=== PATIENT | female | born 1990 | race Caucasian/White ===

== ENCOUNTER 2019-10-23 01:21 | Day surgery (SDC) | payer OTHER, SELFPAY ==
[2019-10-14 10:59] VITALS: BMI 33.3
--- NOTE | 2019-10-14 11:51 | PM.IMHP ---
H&P: HPI History of Present Illness Chief complaint: Pelvic Pain Narrative: Ting Fitzpatrick is a 29 year old female who is admitted for diagnostic laparoscopy. She has had recurrent pain and discomfort and dyspareunia. She recently had her IUD removed and that did not relieve her pain. She has negative STD testing ultrasound was relatively unremarkable risks and benefits were reviewed including but not exclusive of , aspiration pneumonia, bleeding, transfusion, perforation injury of bowel, bladder, ureters, or other internal organs with need for open laparotomy. She voiced good understanding and all questions answered she asked to proceed Review of Systems Review of Systems: All systems reviewed & are unremarkable except as noted in HPI and below PMFSH Family History Family History Other Family history of malignant neoplasm Social History Social History Smoking status: Never smoker Alcohol intake: current Meds Home Medications and Allergies Home Medications Medication Instructions Recorded Confirmed Type duloxetine 60 mg PO DAILY 10/14/19 10/14/19 History Allergies Allergy/AdvReac Type Severity Reaction Status Date / Time No Known Allergies Allergy Unverified 10/26/18 09:44 Exam Const: General: no acute distress Eyes: General: appearance normal, both eyes and all related structures Neck: Neck: supple and no JVD Thyroid: thyroid normal Resp: Effort & Inspection: normal respiratory effort Auscultation: clear to auscultation bilaterally Cardio: Rate: regular rate Rhythm: regular rhythm GI: Inspection: non-distended GI Palp: Yes Soft to palpation, No Tenderness to palpation present (GI) and No Guarding due to palpation present (GI) Auscultation: normal bowel sounds : General: Yes bladder normal to palpation External Female Exam: normal external appearance Speculum Exam - Vagina: normal vaginal discharge and No vaginal bleeding Speculum Exam - Cervix: nontender Bimanual exam- vagina & uterus: bladder normal to palpation and No Cervical tenderness present OB/external & speculum: No vaginal bleeding Skin: General skin exam: no rashes or lesions noted Extrem: General: normal to inspection and no edema Psych: Mental Status: mental status grossly normal Affect: normal affect Assessment and Plan Additional Plan impression: Pelvic pain Plan: Diagnostic laparoscopy
--- NOTE | 2019-10-21 14:34 | P.HP_ITS ---
H&P: HPI History of Present Illness Chief complaint: Pelvic Pain Narrative: Ting Fitzpatrick is a 29 year old female 2 para 2 who is admitted for diagnostic laparoscopy. She complains of pain discomfort and dyspareunia. She recently had her IUD UD removed. She had negative STD testing. Ultrasound was relatively unremarkable showing a slightly in a modular S uterus showing a previous scar and no free fluid. In light of her continued pain she is offered laparoscopy. Risks and benefits rev iewed including but not exclusive of , aspiration pneumonia, bleeding, transfusion, perforation injury to bowel, bladder, ureters, or other internal organs with need for open laparotomy. She voiced good understanding. She had all questions answered. And asked to proceed Review of Systems Review of Systems: All systems reviewed & are unremarkable except as noted in HPI and below [facility] Family History Family History Other Family history of malignant neoplasm Social History Social History Smoking status: Never smoker Alcohol intake: current Meds Home Medications and Allergies Home Medications Medication Instructions Recorded Confirmed Type duloxetine 60 mg PO DAILY 10/14/19 10/14/19 History Allergies Allergy/AdvReac Type Severity Reaction Status Date / Time No Known Allergies Allergy Unverified 10/21/19 09:00 Exam Const: General: no acute distress Eyes: General: appearance normal, both eyes and all related structures Neck: Neck: supple and no JVD Thyroid: thyroid normal Resp: Effort & Inspection: normal respiratory effort Auscultation: clear to auscultation bilaterally Cardio: Rate: regular rate Rhythm: regular rhythm GI: Inspection: normal to inspection GI Palp: Yes No hepatosplenomegaly present : External Female Exam: normal external appearance Speculum Exam - Vagina: normal appearance of the vagina Speculum Exam - Cervix: normal appearance of the cervix, Patulous cervix present and Cervical tenderness present Bimanual exam- vagina & uterus: uterine mobility normal and non- tender (tender) Bimanual Exam- Adnexa, other: tender (bilaterally) Skin: General skin exam: no rashes or lesions noted Extrem: General: normal to inspection and no edema Psych: Mental Status: mental status grossly normal Affect: normal affect Assessment and Plan Additional Plan or do impression: Pelvic pain and dyspareunia Plan: Laparoscopy
[2019-10-23] VITALS (10 sets, daily range): BP systolic 98–117; BP diastolic 51–77; PULSE 92–132; RESP 14–18; TEMP 36.1–36.4; O2SAT 90–100
--- NOTE | 2019-10-23 06:50 | WPDHPUPDATE1 ---
History and Physical Update Update Date/Time: 10/23/19 06:50 History and Physical has been reviewed, including an updated exam of the patient. There are NO changes in the patient's condition. Risks, benefits, and alternatives have been discussed and questions answered. Patient agrees to proceed with procedure.
[2019-10-23] MEDS: LACTATED RINGERS 1,000 ML 30 ML IV CONT ×2 (07:20→09:27)
--- NOTE | 2019-10-23 08:13 | P.PNAN_ITS ---
Anes - Initial Pre Proc Eval Procedure: Operation Date: 10/23/19 08:30 Proposed Procedures p Diagnostic Laparoscopy - Mitchel Montano MD Date/Time: 10/23/19 08:13 Surgeon: Mitchel Montano MD Pre Op Diagnosis: Pelvic Pain Patient Data Age: 29 Gender: F Height: 5 ft 5 in Weight: 90.72 kg Allergies Allergy/AdvReac Type Severity Reaction Status Date / Time No Known Allergies Allergy Unverified 10/23/19 08:12 Home Medications Medication Instructions Recorded Confirmed Type duloxetine 60 mg PO DAILY 10/14/19 10/14/19 History hydrocodone-acetaminophen [[place]] 1 tablet PO Q4H PRN #30 tablet 10/23/19 Rx Patient hx anesthesia problems: none Family hx anesthesia problems: none PMFSH Past Medical History Medical History (Updated 10/23/19 @ 08:10 by Fermín Cedillo MD) Anxiety Family History Family History Other Family history of malignant neoplasm Social History Social History Smoking status: Never smoker Alcohol intake: current Anes - Eval Final PreProcedure Day of Procedure 10/23/19 08:13 Patient weight: obese Heart: regular rate and rhythm Lungs: clear to auscultation Airway: Mallampati scale class II Neurological: alert and oriented Last oral intake: >/= 8 hours ASA classification: II Emergent: no Anesthetic plan: proceed Anesthesia type and monitoring: general ETT and standard monitoring Informed Consent: The patient's anesthetic plan and its attendant risks and benefits were discussed with the patient/family/POA. Questions were solicited and answers provided to the satisfaction of the patient/family/POA.
--- NOTE | 2019-10-23 09:08 | P.OP_ITS ---
Procedure Note - Detailed Date of procedure: 10/23/19 Pre-op diagnosis: Pelvic Pain Surgeon: Mitchel Montano MD Postop diagnosis: Pelvic pain, mild endometriosis Procedure: Laparoscopy with destruction of endometriosis Anesthesia: General tracheal Blood loss: 5cc Findings: Normal-appearing uterus and right ovary and tube. Left fallopian tube was elongated with the left ovary sitting well above the pelvis. Small area of endometriosis was seen on the right cold is sac. Normal appearing appendix was seen. Normal-appearing liver. Complications: The none. It should be noted that upon entrance of the Veress needle the patient reacted with a fascicular reaction lasting approximately 10- 15 seconds. This was not seen the remainder of the procedure. Description of procedure: The patient was prepped and draped in the normal sterile fashion and placed in the dorsal lithotomy position. Under excellent general endotracheal anesthesia weighted speculum was placed in the posterior fornix of vagina. The anterior lip of cervix was grasped with a single-tooth tenaculum. The Oden's cannula was inserted and attached to the single-tooth to be used later for uterine manipulation. Gloves were changed. An infra Koul incision made. The Veress needle passed into the abdomen and the abdomen filled with CO2 gas [id number]. The 5mm trocar was advanced in the abdomen under direct visualization assuring no injury. Patient placed in Trendelenburg and a suprapubic incision made under direct visualization assuring no injury. The above findings were seen the above findings were seen. The small area of endometriosis on the right uterus sacral ligament was cauterized at 35 w per 2nd. No other abnormalities were seen. Photo documentation was undertaken. The lower site removed. The gas removed from the abdomen. The incisions closed with 4 O Monocryl and glue. All sponge, needle, instrument c ounts were correct. There were no immediate complications
[2019-10-23] MEDS: ONDANSETRON INJ 4 MG/2 ML VIAL IV PUSH (09:44)
[2019-10-23] MEDS: HYDROMORPHONE HCL 1 MG/ML INJ 0.5 MG IV PUSH (10:11)
[2019-10-23] MEDS: SCOPOLAMINE 1.5 MG PATCH TRANSDERM (10:54)
== END 2019-10-23 11:35 | disposition home or self-care (01) ==
PROVIDERS: Visit Provider Obstetrics & Gynecology
PROC: (CPT 49320; principal; 2019-10-23 08:30)
DX: N80.3 Endometriosis of pelvic peritoneum (principal); R10.2 Pelvic and perineal pain; F41.9 Anxiety disorder, unspecified; E66.9 Obesity, unspecified; Z68.37 Body mass index [BMI] 37.0-37.9, adult
CPT/HCPCS: 58662; 36415; 86850; 86900; 86901; A9270; J0330; J1100; J1170; J1200; J2250; J2405; J2704; J3010; J7030; J7120

== ENCOUNTER 2020-04-14 14:42 | Emergency (ER) | payer OTHER, SELFPAY ==
[2020-04-14 15:03] VITALS: BP 140/88; PULSE 96; RESP 14; TEMP 37; O2SAT 98
[2020-04-14 15:07] LABS: Add Urine Microscopic? YES; Appearance Urine Cloudy (Clear); Bacteria Urine Trace /hpf; Bilirubin Urine Negative (Negative); Blood Urine Negative (Negative); Color Urine Yellow (Yellow); Glucose Urine UA Negative (Negative); Ketones Urine Negative (Negative); Leukocyte Esterase Ur Trace LEU/UL (Negative); Mucus Urine Rare /lpf; Nitrate Urine Positive (Negative); Protein Urine 1+ mg/dL (Negative); Specific Grav Ur 1.023 (1.001-1.035); Squamous Epithelial Cell Urine Many /hpf (Few); Urobilinogen Urine Negative mg/dL (<2.0)
[2020-04-14] MEDS: SODIUM CHLORIDE 0.9% IV 1,000 ML 999 ML IV CONT ×2 (15:14→16:35)
[2020-04-14 15:20] LABS: Basophils Percent Auto 0.2 % (0.2-1.2); Eosinophils Percent Auto 0.2 % (0-4.4); Hematocrit 39.4 % (37.0-47.0); Hemoglobin 13.2 g/dL (12.0-15.0); Immature Granulocyte Absolute 0.03 K/mm3 (0.00-0.031); Immature Granulocyte Percent A 0.3 % (0-0.5); Lymphocytes Absolute Auto 3.02 K/mm3 (0.9-3.2); Lymphocytes Percent Auto 26.7 % (18.3-44.2); Mean Corpuscular HGB Conc 33.5 g/dl (32-36); Mean Corpuscular Hemoglobin 29.2 pg (26-34); Mean Corpuscular Volume 87.2 fl (80-100); Mean Platelet Volume 9.8 fl (7.4-10.4); Monocytes Absolute Auto 0.6 K/mm3 (0.1-0.6); Monocytes Percent Auto 5.7 % (2.6-8.5); Neutrophils Absolute Auto 7.6 K/mm3 (1.3-6.7); Neutrophils Percent Auto 66.9 % (45.5-73.1); Platelet Count Result 309 k/mm3 (150-375); Red Blood Count 4.52 M/mm3 (4.2-5.4); Red Cell Distribution Width 13.3 % (11.5-14.5); White Blood Count 11.3 K/mm3 (4.5-10.0)
[2020-04-14 15:34] LABS: Alanine Aminotransferase 11 U/L (4-35); Albumin Level 4.6 g/dL (3.5-5.1); Alkaline Phosphatase 92 U/L (38-126); Anion Gap 14.8 mmol/L (7-16); Aspartate Amino Transferase 19 U/L (14-36); Bilirubin,Total 0.5 mg/dL (0.2-1.3); Blood Urea Nitrogen 8 mg/dL (7-17); Calcium 9.6 mg/dL (8.4-10.2); Carbon Dioxide 22 mmol/L (22-30); Chloride 105 mmol/L (98-107); Estimated CRCL calculation 80 ml/min; Estimated Glomerular Filt Rate > 60; Glucose 95 mg/dL (65-105); Potassium 3.8 mmol/L (3.4-5.0); Sodium 138 mmol/L (137-145)
--- NOTE | 2020-04-14 15:42 | ED.ABDPAIN ---
HPI - Abdominal Pain General Chief Complaint: Urogenital-Female <Ebenezer Zhang PA-C - Last Filed: 04/14/20 17:15> Stated Complaint: flank pain <Ebenezer Zhang PA-C - Last Filed: 04/14/20 17:15> Time Seen by Provider: 04/14/20 14:45 <Ebenezer hZang PA-C - Last Filed: 04/14/20 17:15> Source: patient and family <Ebenezer Zhang PA-C - Last Filed: 04/14/20 17:15> Mode of arrival: ambulatory <Ebenezer Zhang PA-C - Last Filed: 04/14/20 17:15> Limitations: no limitations <Ebenezer Zhang PA-C - Last Filed: 04/14/20 17:15> History of Present Illness HPI narrative: Patient is a 30-year-old female who presents to emergency department for evaluation of upper respiratory symptoms that began in the last day noting that she has had a history of urinary tract infection notes some discomfort in the lower abdomen and lower back patient resting comfortably in the room upon arrival took some Tylenol for her symptoms with some improvement denies vomiting diarrhea or URI symptoms <Ebenezer Zhang PA-C - Last Filed: 04/14/20 17:15> Related Data Home Medications: Home Medications Medication Instructions Recorded Confirmed duloxetine 60 mg PO DAILY 10/14/19 10/23/19 <Ebenezer Zhang PA-C - Last Filed: 04/14/20 17:15> Allergies/Adverse Reactions: Allergies Allergy/AdvReac Type Severity Reaction Status Date / Time No Known Allergies Allergy Verified 04/14/20 15:14 <Ebenezer Zhang PA-C - Last Filed: 04/14/20 17:15> Review of Systems Review of Systems: All systems reviewed & are unremarkable except as noted in HPI and below <Ebenezer Zhang PA-C - Last Filed: 04/14/20 17:15> [facility] Past Medical History Medical History: Medical History Anxiety <LAMIN Patrick Last Filed: 04/14/20 17:15> Social History Social History: Social History Smoking status: Never smoker Alcohol intake: current <Ebenezer Zhang PA-C - Last Filed: 04/14/20 17:15> Exam Narrative: Exam Narrative: GENERAL: Well-appearing, well-nourished, and in no acute distress. HEAD: Normocephalic, atraumatic. EYES: PERRLA and EOMI. ENT: Nares clear, no rhinorrhea or epistaxis. Mucous membranes moist. CHEST: Clear to auscultation. No respiratory distress. No wheezes rales or rhonchi HEART: Regular rate and rhythm. No murmur heard. Normal peripheral pulses. ABDOMEN: Soft, nontender, nondistended EXTREMITIES: Normal range of motion. No edema. SKIN: Warm, dry, no rash. NEURO: No focal deficits. Alert and oriented x3. PSYCH: Normal mood and affect. <Ebenezer Zhang PA-C - Last Filed: 04/14/20 17:15> Course Course Emergency Course: Patient in the room in no distress afebrile nontoxic-appearing hydrated given antibiotics in the emergency department felt appropriate for outpatient reevaluation. Patient agreeing with plan and will follow-up as directed no high risk changes in the blood work. Patient was offered CAT scan but notes she prefers to go home and will return if symptoms worsen. <Ebenezer Zhang PA-C - Last Filed: 04/14/20 17:15> Vital Signs Vital signs: Vital Signs Temperature 98.6 F 04/14/20 15:03 Pulse Rate 96 04/14/20 15:03 Respiratory Rate 14 04/14/20 15:03 Blood Pressure 140/88 04/14/20 15:03 Pulse Oximetry 98 04/14/20 15:03 Temperature 98.6 F 04/14/20 15:03 Pulse Rate 70 04/14/20 18:11 Respiratory Rate 12 04/14/20 18:11 Blood Pressure 124/78 04/14/20 18:11 Pulse Oximetry 99 04/14/20 18:11 <Ebenezer Zhang PA-C - Last Filed: 04/14/20 17:15> Vital Signs Temperature 98.6 F 04/14/20 15:03 Pulse Rate 96 04/14/20 15:03 Respiratory Rate 14 04/14/20 15:03 Blood Pressure 140/88 07/23/20 15:03 Pulse Oximetry 98 04/14/20 15:03 Temperature 98.6 F 04/14/20
[2020-04-14] MEDS: KETOROLAC 30 MG/ML VIAL (*BKC) IV PUSH (16:35)
[2020-04-14] MEDS: ONDANSETRON INJ 4 MG/2 ML VIAL IV PUSH (16:35)
[2020-04-14 16:36] VITALS: BP 125/96; PULSE 94; RESP 14; O2SAT 98
[2020-04-14 18:11] VITALS: BP 124/78; PULSE 70; RESP 12; O2SAT 99
== END 2020-04-14 17:39 | disposition home or self-care (01) ==
PROVIDERS: Emergency Medicine Emergency Medical Services; Emergency Provider Emergency Medicine
DX: N39.0 Urinary tract infection, site not specified (principal)
CPT/HCPCS: 36415; 80053; 81001; 81025; 85025; 96361; 96365; 96375; 99284; J0131; J0696; J1885; J2405; J7030

== ENCOUNTER 2021-02-06 16:33 | Outpatient (CLI) | payer OTHER, SELFPAY ==
--- NOTE | ~2021-02-06 | XR_ITS ---
XR hand RT min 3V DATE: 02/06/2021 16:55 INDICATION: Right hand contusion TECHNIQUE: 3 views COMPARISON: None FINDINGS: There is a an intra-articular fracture of the base of the fifth metacarpal bone, with minim al dorsal displacement. No fracture or dislocation is evident otherwise. IMPRESSION: Intra-articular fracture of base of fifth metacarpal bone Reviewed, dictated and finalized at location A.
== END 2021-02-06 16:34 ==
PROVIDERS: PCP Physician Assistant; Visit Provider Physician Assistant
DX: S60.221A Contusion of right hand, initial encounter (principal); S62.316A Displaced fracture of base of fifth metacarpal bone, right hand, initial encounter for closed fracture
CPT/HCPCS: 73130

== ENCOUNTER → 2021-02-21 02:46 | Outpatient (CLI) | payer OTHER, SELFPAY ==
[2021-02-21 18:14] LABS: SARS-CoV-2 RNA PCR Negative
== END ==
PROVIDERS: PCP Physician Assistant; Visit Provider Internal Medicine Gastroenterology
DX: Z01.812 Encounter for preprocedural laboratory examination (principal); Z20.822 Contact with and (suspected) exposure to COVID-19
CPT/HCPCS: C9803; U0003; U0005

== ENCOUNTER 2021-02-24 00:42 | Day surgery (SDC) | payer OTHER, SELFPAY ==
[2021-02-15 15:48] VITALS: BMI 37.0
[2021-02-24 09:46] VITALS: BP 107/62; PULSE 87; RESP 20; TEMP 36.1; O2SAT 99; BMI 37.7
[2021-02-24] MEDS: LACTATED RINGERS 1,000 ML 150 ML IV CONT (10:04)
--- NOTE | 2021-02-24 10:55 | WPDANESEPPF ---
Anes - Initial Pre Proc Eval Procedure: Operation Date: 02/24/21 11:30 Proposed Procedures p Colonoscopy - Jose Price MD Date/Time: 02/24/21 10:55 Surgeon: Jose Price MD Pre Op Diagnosis: melena Patient Data Age: 31 Gender: F Height: 5 ft 5 in Weight: 102.9 kg Last Vital Signs Temp 97.0 F L 02/24/21 09:46 Pulse 87 02/24/21 09:46 Resp 20 02/24/21 09:46 BP 107/62 02/24/21 09:46 Pulse Ox 99 02/24/21 09:46 Allergies Allergy/AdvReac Type Severity Reaction Status Date / Time No Known Allergies Allergy Unverified 02/24/21 09:45 Home Medications Medication Instructions Recorded Confirmed Type duloxetine 60 mg PO DAILY 10/14/19 10/23/19 History hydrocodone-acetaminophen [[place]] 1 tablet PO Q4H PRN #30 tablet 10/23/19 Rx cephalexin [Keflex] 500 mg PO Q12H 10 Days #20 cap 04/14/20 Rx phenazopyridine [Pyridium] 100 mg PO TID PRN #6 tablet 04/14/20 Rx promethazine 25 mg PO Q6H PRN #10 tablet 04/14/20 Rx duloxetine 60 mg PO DAILY 02/15/21 02/15/21 History quetiapine 200 mg PO DAILY 02/15/21 02/15/21 History tapentadol [Nucynta] 100 mg PO Q6H PRN 02/15/21 02/15/21 History Patient hx anesthesia problems: none Family hx anesthesia problems: none [facility] Past Medical History Medical History (Updated 02/24/21 @ 10:54 by Fermín Cedillo MD) Anxiety Depression Family History Family History Other Family history of malignant neoplasm Social History Social History Smoking status: Never smoker Alcohol intake: never Substance use: never Substance use type: does not use Spiritual care concerns: No Anes - Eval Final PreProcedure Day of Procedure 02/24/21 10:55 Patient weight: obese Heart: regular rate and rhythm Lungs: clear to auscultation Airway: Mallampati scale class II Neurological: alert and oriented Last oral intake: >/= 8 hours ASA classification: II Emergent: no Anesthetic plan: proceed Anesthesia type and monitoring: general GIVS and standard monitoring Informed Consent: The patient's anesthetic plan and its attendant risks and benefits were discussed with the patient/family/POA. Questions were solicited and answers provided to the satisfaction of the patient/family/POA.
--- NOTE | 2021-02-24 10:59 | PM.HPGS ---
History of Present Illness History of Present Illness Consent: Risks, benefits, and alternatives have been discussed and questions answered. Patient agrees to proceed with procedure. Chief complaint: melena Narrative: Ting Fitzpatrick is a 31 year old female who has been passing blood in his stools for several months. She has a tendency to have constipation but at times her stools are loose. She is having a great deal of pain with passage of stool. This has been going on for several months also Review of Systems Review of Systems: All systems reviewed & are unremarkable except as noted in HPI and below PMFSH Past Medical History Medical History Anxiety Depression Family History Family History Other Family history of malignant neoplasm Social History Social History Smoking status: Never smoker Alcohol intake: never Substance use: never Substance use type: does not use Spiritual care concerns: No Meds Home Medications and Allergies Home Medications Medication Instructions Recorded Confirmed Type duloxetine 60 mg PO DAILY 10/14/19 10/23/19 History hydrocodone-acetaminophen [[place]] 1 tablet PO Q4H PRN #30 tablet 10/23/19 Rx cephalexin [Keflex] 500 mg PO Q12H 10 Days #20 cap 04/14/20 Rx phenazopyridine [Pyridium] 100 mg PO TID PRN #6 tablet 04/14/20 Rx promethazine 25 mg PO Q6H PRN #10 tablet 04/14/20 Rx duloxetine 60 mg PO DAILY 02/15/21 02/15/21 History quetiapine 200 mg PO DAILY 02/15/21 02/15/21 History tapentadol [Nucynta] 100 mg PO Q6H PRN 02/15/21 02/15/21 History Allergies Allergy/AdvReac Type Severity Reaction Status Date / Time No Known Allergies Allergy Unverified 02/24/21 09:45 Vital Signs Vital Signs - 24 hr 02/24/21 09:46 Temperature 36.1 C L Pulse Rate 87 Respiratory Rate 20 Blood Pressure 107/62 Pulse Oximetry 99 Exam Resp: Auscultation: clear to auscultation bilaterally Cardio: Rate: regular rate Rhythm: regular rhythm GI: GI Palp: Yes Soft to palpation and No Tenderness to palpation present (GI) Assessment and Plan Assessment and plan (1) Blood in stool: Code(s): K92.1 - Melena Status: Acute Assessment and Plan: Colonoscopy with possible biopsy or polypectomy or cautery or injection of substances.
[2021-02-24 11:26] VITALS: BP 145/66; PULSE 91; RESP 18; O2SAT 97
[2021-02-24 11:36] VITALS: BP 110/75; PULSE 72; RESP 18; O2SAT 96
[2021-02-24 11:46] VITALS: BP 109/62; PULSE 69; RESP 20; O2SAT 96
== END 2021-02-24 12:05 | disposition home or self-care (01) ==
PROVIDERS: PCP Physician Assistant; Visit Provider Internal Medicine Gastroenterology
PROC: 0DJD8ZZ Inspection of Lower Intestinal Tract, Via Natural or Artificial Opening Endoscopic (ICD-10-PCS; CPT 45378; principal; 2021-02-24 11:30)
DX: K60.2 Anal fissure, unspecified (principal); F41.8 Other specified anxiety disorders; E66.9 Obesity, unspecified; Z68.37 Body mass index [BMI] 37.0-37.9, adult
CPT/HCPCS: 45378; C9803; J7120; U0003; U0005

== ENCOUNTER → 2021-06-27 02:47 | Outpatient (CLI) | payer OTHER, SELFPAY ==
[2021-06-27 19:14] LABS: SARS-CoV-2 RNA PCR Negative
== END ==
PROVIDERS: PCP Physician Assistant; Visit Provider Obstetrics & Gynecology
DX: Z01.812 Encounter for preprocedural laboratory examination (principal); Z20.822 Contact with and (suspected) exposure to COVID-19
CPT/HCPCS: C9803; U0003; U0005

== ENCOUNTER 2021-06-27 09:02 | Outpatient (CLI) | payer OTHER, SELFPAY ==
[2021-06-27 09:50] LABS: Basophils Percent Auto 0.5 % (0.2-1.2); Eosinophils Absolute Auto 0.2 K/mm3 (0-0.3); Hematocrit 37.5 % (37.0-47.0); Hemoglobin 12.2 g/dL (12.0-15.0); Immature Granulocyte Absolute 0.03 K/mm3 (0.00-0.031); Immature Granulocyte Percent A 0.3 % (0-0.5); Lymphocytes Absolute Auto 3.08 K/mm3 (0.9-3.2); Lymphocytes Percent Auto 34.8 % (18.3-44.2); Mean Corpuscular HGB Conc 32.5 g/dl (32-36); Mean Corpuscular Hemoglobin 27.8 pg (26-34); Mean Corpuscular Volume 85.4 fl (80-100); Mean Platelet Volume 9.5 fl (7.4-10.4); Monocytes Absolute Auto 0.7 K/mm3 (0.1-0.6); Monocytes Percent Auto 8.2 % (2.6-8.5); Neutrophils Absolute Auto 4.8 K/mm3 (1.3-6.7); Neutrophils Percent Auto 54.2 % (45.5-73.1); Platelet Count Result 253 k/mm3 (150-375); Red Blood Count 4.39 M/mm3 (4.2-5.4); Red Cell Distribution Width 13.8 % (11.5-14.5); White Blood Count 8.9 K/mm3 (4.5-10.0)
== END 2021-06-27 09:03 | disposition home or self-care (01) ==
LOC: ANHSURGERY 09:06
PROVIDERS: PCP Physician Assistant; Visit Provider Obstetrics & Gynecology
DX: Z01.812 Encounter for preprocedural laboratory examination (principal); R10.2 Pelvic and perineal pain
CPT/HCPCS: 36415; 85025; 86850; 86900; 86901

== ENCOUNTER 2021-06-30 00:39 | Day surgery (SDC) | payer OTHER, SELFPAY ==
[2021-06-22 10:06] VITALS: BMI 37.4
--- NOTE | 2021-06-27 16:16 | PM.IMHP ---
H&P: HPI History of Present Illness Date/Time: 06/27/21 16:16 this is a 31-year-old 2 para 2 admitted for robotic total vaginal rectally and bilateral salpingectomy secondary to chronic pelvic pain, enlarged uterus and dyspareunia. The patient has had several surgeries for pelvic pain before in the past. Hormonal manipulation has been on helpful. Risks and benefits reviewed including but not exclusive of , aspiration pneumonia, bleeding, transfusion, perforation injury to bowel, bladder, ureters, or other internal organs with need for laparotomy. She received the [employer] handout entitled hysterectomy as well as the [place] handout. She had all questions answered and asked to proceed Chief Complaint: pelvic pain and dyspareunia Review of Systems Review of Systems: All systems reviewed & are unremarkable except as noted in HPI and below PMFSH Past Medical History Medical History Anxiety Depression Family History Family History Other Family history of malignant neoplasm Social History Social History Smoking status: Never smoker Alcohol intake: never Substance use: never Substance use type: does not use Spiritual care concerns: No Meds Home Medications and Allergies Home Medications Medication Instructions Recorded Confirmed Type duloxetine 60 mg PO HS 02/15/21 06/22/21 History quetiapine 200 mg PO HS 02/15/21 06/22/21 History Allergies Allergy/AdvReac Type Severity Reaction Status Date / Time No Known Allergies Allergy Unverified 06/22/21 10:04 Exam Const: General: no acute distress Eyes: General: appearance normal, both eyes and all related structures Neck: Neck: supple and no JVD Thyroid: thyroid normal Resp: Effort & Inspection: normal respiratory effort Auscultation: clear to auscultation bilaterally Cardio: Rate: regular rate Rhythm: regular rhythm GI: Inspection: non-distended GI Palp: Yes Soft to palpation, No Tenderness to palpation present (GI) and No Guarding due to palpation present (GI) Auscultation: normal bowel sounds : General: Yes bladder normal to palpation External Female Exam: normal external appearance Speculum Exam - Vagina: normal appearance of the vagina Bimanual exam- vagina & uterus: enlarged and Uterine tenderness Bimanual Exam- Adnexa, other: normal adnexae Skin: General skin exam: no rashes or lesions noted Extrem: General: normal to inspection and no edema Psych: Mental Status: mental status grossly normal Affect: normal affect Assessment and Plan Additional Plan impression: Enlarged uterus with pelvic pain and dyspareunia refractory to medical therapy Plan: Robotic total vaginal hysterectomy and bilateral salpingectomies
[2021-06-30] VITALS (18 sets, daily range): BP systolic 99–132; BP diastolic 53–94; PULSE 75–109; RESP 12–22; TEMP 36.4–37.2; O2SAT 94–100
--- NOTE | 2021-06-30 06:00 | WPDHPUPDATE1 ---
History and Physical Update Update Date/Time: 06/30/21 06:00 History and Physical has been reviewed, including an updated exam of the patient. There are NO changes in the patient's condition. Risks, benefits, and alternatives have been discussed and questions answered. Patient agrees to proceed with procedure.
[2021-06-30] MEDS: ACETAMINOPHEN 500 MG TABLET 1000 MG PO (06:45)
--- NOTE | 2021-06-30 06:57 | WPDANESEPPF ---
Anes - Initial Pre Proc Eval Procedure: Operation Date: 06/30/21 08:00 Proposed Procedures p Robotic Assisted Total Vaginal Hysterectomy Bilateral Salpingectomy - Mitchel Montano MD Date/Time: 06/30/21 06:57 Surgeon: Mitchel Montano MD Pre Op Diagnosis: Pelvic Pain, Enlarged Uterus Patient Data Age: 31 Gender: F Height: 1.65 m Weight: 102 kg Allergies Allergy/AdvReac Type Severity Reaction Status Date / Time No Known Allergies Allergy Unverified 06/30/21 06:34 Home Medications Medication Instructions Recorded Confirmed Type duloxetine 60 mg PO HS 02/15/21 06/30/21 History quetiapine 200 mg PO HS 02/15/21 06/30/21 History hydrocodone-acetaminophen 1 tablet PO Q4H PRN #30 tablet 06/30/21 Rx Patient hx anesthesia problems: none Family hx anesthesia problems: none Results Review: All pre-operative results and documents have been reviewed as part of the pre-operative evaluation. PMFSH Past Medical History Medical History (Updated 06/30/21 @ 06:57 by Mitchel Turner MD) Anxiety Depression Obesity Surgical History Surgical History (Updated 06/30/21 @ 06:57 by Mitchel Turner MD) H/O arthroscopic knee surgery History of section Family History Family History Other Family history of malignant neoplasm Social History Social History Smoking status: Never smoker Alcohol intake: never Substance use: never Substance use type: does not use Living arrangements: with family Spiritual care concerns: No Anes - Eval Final PreProcedure Day of Procedure 06/30/21 06:57 Patient weight: obese Heart: regular rate and rhythm Lungs: clear to auscultation Airway: Mallampati scale Neurological: alert and oriented Last oral intake: >/= 8 hours ASA classification: II Emergent: no Anesthetic plan: proceed Anesthesia type and monitoring: general ETT and standard monitoring Results Review: All pre-operative results and documents have been reviewed as part of the pre-operative evaluation. Informed Consent: The patient's anesthetic plan and its attendant risks and benefits were discussed with the patient/family/POA. Questions were solicited and answers provided to the satisfaction of the patient/family/POA.
[2021-06-30] MEDS: KETOROLAC 15 MG/ML VIAL (*BKC) IV PUSH (07:00)
[2021-06-30] MEDS: LACTATED RINGERS 1,000 ML 30 ML IV CONT ×2 (07:00→08:25)
[2021-06-30] MEDS: ceFAZolin 2 GM/D5W 50 ML 2 GM/50 ML BAG IVPB (07:21)
--- NOTE | 2021-06-30 08:17 | P.OP_ITS ---
Procedure Note - Detailed Date of Procedure 06/30/21 Pre-op Diagnosis Pelvic Pain, Enlarged Uterus Post-op Diagnosis same Procedure Performed Robotic total vaginal hysterectomy and right salpingectomy Surgeon Mitchel Montano MD Anesthesia general Indications This is a 31-year-old female with bleeding pain and enlarged uterus Findings The left ovary and tube were absent. The uterus was enlarged. Right ovary and tube appeared within normal limits Description of Procedure Patient was prepped draped in the normal sterile fashion placed in the dorsal lithotomy position. Under excellent general trach anesthesia weighted speculum placed in posterior fornix of vagina. The anterior lip of the cervix grasped with single-tooth tenaculum and the uterus sounded to 10cm. Serial dilatation with fragmented dilators performed followed by passage of the 8. WILMA and the 3. Cold cup. A 16 Italian catheter was placed in the bladder. They were in the instruments were removed and the gloves were changed. A supraumbilical incision made the Veress needle passed in the abdomen. The abdomen filled with CO2 gas [id number]. The 5mm trocar advanced in the abdomen under direct visualization assuring no injury. The patient placed in Trendelenburg and right left lateral quadrant incision made. The 8mm trocars advanced under direct visualization assuring no injury. A right upper quadrant incision made the 8mm trocar advanced under direct visualization assuring no injury. The robot was docked. Attention was turned to the console. 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 The right ovary and tube appeared within normal limits. The uterus was enlarged and swollen. The right round ligament was grasped, burned, cut. And a bladder flap formed by anteriorly dissecting the peritoneum and reflecting the bladder caudally away from the uterus to the opposite round ligament. Right fallopian tube was then sharply dissected using cautery and monopolar cautery and left attached to the uterus. The right utero-ovarian ligament was skeletonized to conserve the right ovary. This was clamped, burned, cut. And brought to the level of previously cut round ligament. The cardinal broad ligaments on the right were serially skeletonized. These were clamped, burned, cut. And brought down the lateral edge until the uterine vessels could be seen on the right. These were individually clamped, burned, cut. In like fashion the cardinal and broad ligaments on the left were skeletonized. These were clamped, burned, cut and brought down the lateral edge of the uterus until the uterine vessels could be seen on the left. These were individually clamped, burned, cut and blanching of the uterus was noted. A colpotomy incision was made. The uterus cervix and right fallopian tube removed through the vagina. Blood loss estimated 25cc. The vagina closed with continuous running 0V lock from lateral edge to lateral edge and back to the midline. Irrigation undertaken until clear and hemostasis assured. The robot was undocked. The gas removed from the abdomen. The trocars removed and the incisions closed with 4 Monocryl and glue. The patient was awakened and went to recovery in satisfactory condition. All sponge, needle, instrument counts were correct. There were no immediate complications Estimated Blood Loss 25 Drains No Packing No Pathology yes Complications No immediate complications Condition stable Disposition PACU
[2021-06-30] MEDS: fentaNYL CITRATE INJ (*CRX) 100 MCG/2 ML VIAL 25 MCG IV PUSH ×8 (08:41→09:13)
--- NOTE | 2021-06-30 09:16 | SUR.PHASEI ---
late entry. late pain biomedical manager due to no med orders in when pt arrived. md mendoza and romina called for iniciation and additional pain meds.
[2021-06-30] MEDS: HYDROmorphone HCL INJ (*CRX) 1 MG/ML SYR IV PUSH ×6 (09:18→10:31)
[2021-06-30] MEDS: DEXTROSE 5%/LACTATED RINGERS 1,000 ML 125 ML IV CONT (11:53)
[2021-06-30] MEDS: KETOROLAC 30 MG/ML VIAL (*BKC) IV PUSH (11:53)
--- NOTE | 2021-06-30 11:56 | SUR.PHASEI ---
late entry 103 this nurse gave the last dose of Dilaudid pain med per nov. this nurse called MD crum to inform him about pt requiring so much pain medication and that her vss are stable and abd was soft but tender and no vaginal bleeding. no further orders were given.
--- NOTE | 2021-06-30 13:18 | ADMGEN ---
1130-This patient, Ting Fitzpatrick, was admitted to OB 2nd Floor Room 279-00. Patient/family oriented to hospital policies and general routines including ID bracelet, bed and alarms, visiting hours, pain management, procedures, bathroom and other care routines, personal items, smoking policy, room service/diet, and visiting hours. Information on how to activate the Rapid Response Team has been discussed. Patient/Family are encouraged to report perceived risks to care and to ask questions if they do not understand what they are told or what they should do.
[2021-06-30] MEDS: HYDROcodone/acetaminophen (*CRX) 10-325 MG TABLET 1 TAB PO ×3 (13:50→20:03)
[2021-06-30] MEDS: DOCUSATE SODIUM 100 MG CAPSULE PO (17:00)
[2021-06-30] MEDS: IBUPROFEN 600 MG TABLET PO (20:04)
[2021-06-30] MEDS: DULoxetine HCL 60 MG CAPSULE.DR PO (22:46)
[2021-06-30] MEDS: QUEtiapine FUMARATE 100 MG TABLET 200 MG PO (22:46)
[2021-06-30] MEDS: HYDROcodone/acetaminophen (*CRX) 5-325 MG TABLET 1 TAB PO (23:02)
[2021-06-30] MEDS: CALCIUM CARBONATE (TUMS) 500 MG (200 MG ELEMENTAL) PO (23:06)
[2021-07-01] VITALS: BP 104/70; PULSE 100; RESP 16; TEMP 36.9; O2SAT 100
[2021-07-01] MEDS: HYDROcodone/acetaminophen (*CRX) 5-325 MG TABLET 1 TAB PO ×2 (03:35→09:05)
[2021-07-01] MEDS: IBUPROFEN 600 MG TABLET PO ×2 (03:35→09:05)
[2021-07-01 04:36] VITALS: BP 113/66; PULSE 102; RESP 18; TEMP 36.4; O2SAT 98
[2021-07-01 04:44] LABS: Basophils Percent Auto 0.3 % (0.2-1.2); Eosinophils Percent Auto 0.1 % (0-4.4); Hematocrit 37.4 % (37.0-47.0); Hemoglobin 12.2 g/dL (12.0-15.0); Immature Granulocyte Absolute 0.04 K/mm3 (0.00-0.031); Immature Granulocyte Percent A 0.3 % (0-0.5); Lymphocytes Absolute Auto 2.75 K/mm3 (0.9-3.2); Lymphocytes Percent Auto 18.4 % (18.3-44.2); Mean Corpuscular HGB Conc 32.6 g/dl (32-36); Mean Corpuscular Hemoglobin 27.5 pg (26-34); Mean Corpuscular Volume 84.4 fl (80-100); Mean Platelet Volume 9.8 fl (7.4-10.4); Monocytes Absolute Auto 0.8 K/mm3 (0.1-0.6); Monocytes Percent Auto 5.3 % (2.6-8.5); Neutrophils Absolute Auto 11.3 K/mm3 (1.3-6.7); Neutrophils Percent Auto 75.6 % (45.5-73.1); Platelet Count Result 295 k/mm3 (150-375); Red Blood Count 4.43 M/mm3 (4.2-5.4); Red Cell Distribution Width 13.8 % (11.5-14.5); White Blood Count 14.9 K/mm3 (4.5-10.0)
[2021-07-01 08:00] VITALS: BP 95/49; PULSE 96; RESP 14; TEMP 36.9; O2SAT 95
--- NOTE | 2021-07-01 09:00 | PM.DS ---
DS: Admitting Diagnosis Discharge Date 07/01/21 Admitting Diagnosis chronic pelvic pain enlarged uterus dyspareunia DS: Summary Hospital Course Hospital Course: Taryn Sykes was admitted after robotic assisted total laparoscopic hysterectomy and bilateral salpingo-oophorectomy for abnormal uterine bleeding. The above procedure was performed with no complications. She is doing well post op. She states her pain is well controlled with PO medications. She reports minimal bleeding. She is ambulating up to the chair. Her gibson catheter was removed. She is tolerating PO without N/V. She reports passing flatus. Status at Discharge Overall status at discharge: patient is progressing back to baseline Time Spent with Patient Time attestation: Total time spent providing and/or coordinating discharge services: Time spent: Less than 30 minutes Exam Const: General: comfortable and no acute distress Limitations: no limitations Resp: Effort & Inspection: normal respiratory effort Auscultation: clear to auscultation bilaterally Cardio: Rate: regular rate Rhythm: regular rhythm GI: Inspection: non-distended GI Palp: Yes Soft to palpation, Yes Tenderness to palpation present (GI) (milder tenderness to deep palpation) and No Guarding due to palpation present (GI) Auscultation: normal bowel sounds Other: incisions C/D/I covered with dermabond Urinary Catheter: Urinary Catheter: urine clear Skin: General skin exam: normal color Extrem: General: normal to inspection Psych: Mental Status: mental status grossly normal Affect: normal affect DS: Data Data Completed and Pending Pending studies at discharge: Pending at discharge 06/30/21 11:26 Surgical [PTH] Routine Labs on day of discharge: Labs from last 24 hours 07/01/21 03:34 WBC 14.9 H RBC 4.43 Hgb 12.2 Hct 37.4 MCV 84.4 MCH 27.5 MCHC 32.6 RDW 13.8 Plt Count 295 MPV 9.8 Immature Gran % (Auto) 0.3 Neut % (Auto) 75.6 H Lymph % (Auto) 18.4 [place] % (Auto) 5.3 Eos % (Auto) 0.1 Baso % (Auto) 0.3 Lymph # (Auto) 2.75 [place] # (Auto) 0.8 H Eos # (Auto) 0.0 Baso # (Auto) 0.0 Abs Immat Gran (auto) 0.04 H Absolute Neuts (auto) 11.3 H Absolute Nucleated RBC 0.0 Nucleated RBC % 0.0 Discharge Plan Discharge Patient Disposition: Home, Self-Care Patient Instructions: Laparoscopic Hysterectomy (DC) Stand Alone Forms: General Discharge Instructions Follow-up/Referrals: Mitchel Montano MD [Physician] - Discharge Medications: New hydrocodone-acetaminophen 5-325 mg tablet 1 tablet PO Q4H PRN (Reason: pain) Qty: 30 RF: 0 No Action quetiapine 200 mg tablet 200 mg PO HS RF: 0 duloxetine 60 mg capsule,delayed release(DR/EC) 60 mg PO HS RF: 0
[2021-07-01] MEDS: DOCUSATE SODIUM 100 MG CAPSULE PO (09:04)
--- NOTE | 2021-07-01 12:06 | P.PNAN_ITS ---
Anes - Prog Note Post-Op Date/Time: 07/01/21 12:06 Cardiovascular status: normal Respiratory status: normal Airway patency: baseline Mental status: baseline Post-Op hydration status: normal Vital Signs: Last Vital Signs Temp 36.9 C 07/01/21 08:00 Pulse 96 07/01/21 08:00 Resp 14 07/01/21 08:00 BP 95/49 L 07/01/21 08:00 Pulse Ox 95 07/01/21 08:00 Pain Score (VAS): 0 I/O: Intake & Output 06/30/21 07/01/21 07/01/21 23:59 07:59 15:59 Intake Total 830 Output Total 1100 1500 Balance -270 -1500 Laboratory Tests 07/01/21 03:34 07/01/21 03:34 WBC 14.9 H RBC 4.43 Hgb 12.2 Hct 37.4 MCV 84.4 MCH 27.5 MCHC 32.6 RDW 13.8 Plt Count 295 MPV 9.8 Immature Gran % (Auto) 0.3 Neut % (Auto) 75.6 H Lymph % (Auto) 18.4 [place] % (Auto) 5.3 Eos % (Auto) 0.1 Baso % (Auto) 0.3 Lymph # (Auto) 2.75 [place] # (Auto) 0.8 H Eos # (Auto) 0.0 Baso # (Auto) 0.0 Abs Immat Gran (auto) 0.04 H Absolute Neuts (auto) 11.3 H Absolute Nucleated RBC 0.0 Nucleated RBC % 0.0 Post-procedural complaints: none Patient Feedback: Patient satisfied with anesthetic care.
== END 2021-07-01 12:10 | disposition home or self-care (01) ==
LOC: ANHSURGERY 06:08 → ANHOB2 11:32
PROVIDERS: PCP Physician Assistant; Visit Provider Obstetrics & Gynecology
PROC: (CPT 58552; principal; 2021-06-30 08:00)
DX: R10.2 Pelvic and perineal pain (principal); Q51.4 Unicornate uterus; N80.0 Endometriosis of uterus; N73.6 Female pelvic peritoneal adhesions (postinfective); N83.8 Other noninflammatory disorders of ovary, fallopian tube and broad ligament; N94.10 Unspecified dyspareunia; F41.8 Other specified anxiety disorders; E66.9 Obesity, unspecified; Z68.39 Body mass index [BMI] 39.0-39.9, adult
CPT/HCPCS: 58552; S2900; 36415; 85025; 86850; 86900; 86901; 88307; 99199; A9270; C9803; J0690; J1100; J1170; J1885; J2250; J2405; J2704; J2710; J3010; J7030; J7120; J7121; U0003; U0005

== ENCOUNTER 2022-11-22 09:55 | Observation (INO) | payer OTHER, SELFPAY ==
--- NOTE | ~2022-11-22 | CT_ITS ---
EXAMINATION: CT abdomen pelvis wo con DATE: 11/22/2022 11:30 INDICATION: Right flank pain. Urinary symptoms. One kidney. TECHNIQUE: Computed tomography (CT) of the abdomen and pelvis was performed without intravenous contr ast. The dose-length product was 654.12 mGy-cm. Automated exposure control and iterative reconstruction technique were employed. COMPARISON: CT dated 09/24/2019. FINDINGS: Lung bases are unremarkable. There is absence of the left kidney, likely developmental. The re is a fat-containing umbilical hernia. No significant vascular abnormality. No lymphadenopathy. There is hypertrophy of the right kidney. There is mild right perinephric and proximal periureteral s tranding, suspicious for ascending urinary tract infection/pyelonephritis. Bladder wall is mildly thi ckened, although not well distended. Nonobstructive bowel gas pattern. The liver, spleen, pancreas, adrenal glands are unremarkable. Gallbladder is present. No free air or free fluid. No lymphadenopathy. IMPRESSION: 1. Enlarged right kidney with perinephric and proximal periureteral stranding, suspicious for ascendi ng urinary tract infection/pyelonephritis. Mild thickening of the bladder wall is noted, although not well distended. Cannot exclude cystitis. Reviewed, dictated and finalized at location [facility] IMPRESSION: 1. Enlarged right kidney with perinephric and proximal periureteral stranding, suspicious for ascending urinary tract infection/pyelonephritis. Mild thickenin g of the bladder wall is noted, although not well distended. Cannot exclude cys titis.
[2022-11-22 10:05] VITALS: BP 108/70; PULSE 110; TEMP 37.1; O2SAT 97
[2022-11-22 10:48] LABS: Basophils Absolute Auto 0.1 K/mm3 (0.0-0.1); Basophils Percent Auto 0.3 % (0.2-1.2); Eosinophils Percent Auto 0.1 % (0-4.4); Hematocrit 39.6 % (37.0-47.0); Hemoglobin 13.1 g/dL (12.0-15.0); Immature Granulocyte Absolute 0.09 K/mm3 (0.00-0.031); Immature Granulocyte Percent A 0.5 % (0-0.5); Lymphocytes Absolute Auto 1.71 K/mm3 (0.9-3.2); Lymphocytes Percent Auto 9.9 % (18.3-44.2); Mean Corpuscular HGB Conc 33.1 g/dl (32-36); Mean Corpuscular Hemoglobin 29.2 pg (26-34); Mean Corpuscular Volume 88.4 fl (80-100); Mean Platelet Volume 9.8 fl (7.4-10.4); Monocytes Absolute Auto 1.4 K/mm3 (0.1-0.6); Monocytes Percent Auto 8.3 % (2.6-8.5); Neutrophils Percent Auto 80.9 % (45.5-73.1); Platelet Count Result 231 k/mm3 (150-375); Red Blood Count 4.48 M/mm3 (4.2-5.4); Red Cell Distribution Width 15.1 % (11.5-14.5); White Blood Count 17.3 K/mm3 (4.5-10.0)
[2022-11-22 10:55] LABS: Alanine Aminotransferase 21 U/L (6-35); Albumin Level 4.3 g/dL (3.5-5.1); Alkaline Phosphatase 112 U/L (38-126); Anion Gap 7 mmol/L (8-16); Aspartate Amino Transferase 25 U/L (14-36); Blood Urea Nitrogen 9 mg/dL (7-17); Calcium 8.8 mg/dL (8.4-10.2); Carbon Dioxide 29 mmol/L (22-30); Chloride 99 mmol/L (98-107); Estimated CRCL calculation 70 ml/min; Estimated Glomerular Filt Rate 57; Glucose 110 mg/dL (65-110); Lipase 37 U/L (23-300); Potassium 3.7 mmol/L (3.4-5.0); Sodium 135 mmol/L (137-145)
--- NOTE | 2022-11-22 11:00 | ED.ABDPAIN ---
HPI - Abdominal Pain General Chief Complaint: Abdominal Pain <LAMIN Del Valle Last Filed: 11/22/22 12:48> Stated Complaint: severe pain in solitary kidney <LAMIN Del Valle Last Filed: 11/22/22 12:48> Time Seen by Provider: 11/22/22 10:18 <LAMIN Del Valle Last Filed: 11/22/22 12:48> Source: patient <LAMIN Del Valle Last Filed: 11/22/22 12:48> Mode of arrival: ambulatory <LAMIN Del Valle Filed: 11/22/22 12:48> Limitations: no limitations <LAMIN Del Valle Last Filed: 11/22/22 12:48> History of Present Illness HPI narrative: Patient is a 32-year-old female who presents to the ED with c/o R flank pain. Patient reports she began feeling unwell on Saturday night. She developed pain in her right flank region at that time. Pain has persisted, radiates around to her right lower abdomen. She has been taking Tylenol without much relief. She has not taken anything for pain today. Patient also reports having general malaise, fever up to 102 ?F at home, nausea, vomiting, urinary frequency, urgency. She denies significant pain with urination, noticeable hematuria. Denies diarrhea, constipation. Patient does report history of frequent UTIs and kidney infections. 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 Patient was scheduled to see Radha Perez NP with urology in office tomorrow. <LAMIN Del Valle Last Filed: 11/22/22 12:48> Related Data Home Medications: Home Medications Medication Instructions Recorded Confirmed duloxetine 60 mg capsule,delayed 60 mg PO HS 02/15/21 11/22/22 release quetiapine 200 mg tablet 200 mg PO HS 02/15/21 11/22/22 <LAMIN Del Valle Last Filed: 11/22/22 12:48> Allergies/Adverse Reactions: Allergies Allergy/AdvReac Type Severity Reaction Status Date / Time No Known Allergies Allergy Verified 11/22/22 14:36 <Harper Balderas PA-C - Last Filed: 11/22/22 12:48> Review of Systems Review of Systems: CONSTITUTIONAL: See HPI. ENT: Denies rhinorrhea, congestion, sore throat. CARDIOVASCULAR: Denies chest pain. RESPIRATORY: Denies cough or dyspnea. GASTROINTESTINAL: See HPI. GENITOURINARY: See HPI. SKIN: Denies rash or itching. MUSCULOSKELETAL: See HPI. <Harper Balderas PA-C - Last Filed: 11/22/22 12:48> All systems reviewed & are unremarkable except as noted in HPI and below <Harper Balderas PA-C - Last Filed: 11/22/22 12:48> [facility] Past Medical History Medical History: Medical History (Updated 11/22/22 @ 15:34 by Kaylen Rolon NP) Anxiety Bipolar disorder Depression Obesity <Harper Balderas PA-C - Last Filed: 11/22/22 12:48> Surgical History Surgical History: Surgical History (Updated 11/22/22 @ 15:37 by Kaylen Rolon NP) H/O arthroscopic knee surgery H/O breast augmentation H/O hysterectomy for benign disease History of breast lift History of section Status post laparoscopic surgery fallopian tube <LAMIN Del Valle Last Filed: 11/22/22 12:48> Family History Family History: Family History Father Cancer Grandparent Heart disease Other Family history of malignant neoplasm <Harper Balderas PA-C - Last Filed: 11/22/22 12:48> Social History Social History: Social History (Updated 11/22/22 @ 15:38 by Kaylen Rolon NP) Social History: she lives with her family. she is and has two children. She works at [employer] and side of [employer]. Code status full code Smoking status: Never smoker Alcohol intake: never Substance use: never Lack of Transportation: No Lack of Food: Never True Current Housing: I Have Housing Concerned About Future Housing: No Difficulty Paying Gas/Electric Bills: No Difficulty Paying for Meds: No Cu
[2022-11-22 11:05] LABS: Appearance Urine Cloudy (Clear); Bacteria Urine 4+ /hpf; Bilirubin Urine 1+ (Negative); Blood Urine Negative (Negative); Color Urine Dark Yellow (Yellow); Glucose Urine UA Negative (Negative); Ketones Urine 3+ mg/dL (Negative); Leukocyte Esterase Ur 1+ LEU/UL (Negative); Nitrate Urine Positive (Negative); Non Pathogenic Casts 0-2; Protein Urine 1+ mg/dL (Negative); Specific Grav Ur 1.017 (1.001-1.035); Squamous Epithelial Cell Urine Few /hpf (Few); WBC Clumps Urine Present /HPF; pH Urine 5.5 (5.0-9.0)
[2022-11-22 11:10] LABS: Add Urine Microscopic? YES
[2022-11-22] MEDS: SODIUM CHLORIDE 0.9% IV 1,000 ML 999 ML IV CONT ×3 (11:18→22:15)
[2022-11-22] MEDS: ONDANSETRON INJ 4 MG/2 ML VIAL IV PUSH ×2 (11:21→12:13)
[2022-11-22] MEDS: MORPHINE SULFATE (*CRX) 4 MG/ML INJ IV PUSH ×2 (11:21→12:12)
[2022-11-22 11:30] LABS: Pregnancy On Board Control Positive; Urine Pregnancy Test Negative
[2022-11-22 12:03] LABS: Lactic Acid Reflex 1.1 mmol/L (0.7-2.0)
--- NOTE | 2022-11-22 12:28 | WPDURCON ---
Assessment and Plan Assessment and plan (1) Pyelonephritis of right kidney: Code(s): N12 - Tubulo-interstitial nephritis, not specified as acute or chronic Status: Acute Assessment and Plan: Confirmed on CT from today. Kelseyley persistent from 2 weeks ago that was improved on Levaquin but not resolved. (2) E coli infection: Code(s): A49.8 - Other bacterial infections of unspecified site Status: Acute Assessment and Plan: Continue Ceftriaxone, tailor antibiotics to culture results. Blood and urine culture are pending at this time. I suspect this is just a persistent, continued E-Coli infection from 11/09/22 when initially diagnosed, however cultures will confirm that there isn't a new bacterial infection. (3) Chronic cystitis: Code(s): N30.20 - Other chronic cystitis without hematuria Status: Acute Assessment and Plan: D/t chronic UTI's and normal upper tract on CT, with a solitary kidney and persistent pyelonephritis, we have discussed starting daily Cephalexin 250mg to prevent frequent UTI's after treatment of this UTI. I advised her that we will need to repeat a urine culture in the office before she can start them to ensure her infection has resolved. She will also need a cystoscopy in the office to ensure there is no source of chronic infection in her bladder. No further evaluation at this time. Urology Consult Note HPI Date Seen: 11/22/22 Time Seen: 12:29 Primary Care Provider: Marti Lennon, LAMIN Consult Narrative Reason for consult: Pyelonephritis Narrative: Ting Fitzpatrick is a 32 year old female who presented to the ER today for worsening symptoms of right pyelonephritis. She was initially diagnosed in our office on 11/09/22 when she saw me. I treated her with 10 days of Levaquin for a positive culture that grew E-Coli. She states she got better but suddenly Saturday night began having pain in the right flank that radiated to the abdomen, frequency, urgency and a fever of 102 again. She is currently afebrile, but has a WBC of 17.3, creatinine of 1.10 and UA is nitrate positive. She is tachycardic but otherwise stable. She does have a solitary right kidney. She c/o frequent UTI's since she started having children and thinks that they never really resolve. She has had >4 infections per year. She states that she drinks plenty of water and is unsure as to a pattern of why she continues to get them. Her CT scan today shows Enlarged right kidney with perinephric and proximal periureteral stranding, suspicious for ascending urinary tract infection/pyelonephritis. Mild thickening of the bladder wall is noted, although not well distended. Cannot exclude cystitis. She is currently being treated with IV Ceftriaxone which was also sensitive on her culture from 11/09/22 that I have placed in the chart. Review of Systems Cardiovascular: Cardiovascular: Denies chest pain Respiratory: Respiratory: Reports no additional respiratory complaints Gastrointestinal: Gastrointestinal: Reports abdominal pain, Denies nausea and Denies vomiting Genitourinary: Genitourinary: Denies hematuria, Reports nocturia, Denies dysuria, Reports flank pain, Denies urinary hesitancy and Reports urinary urgency PMFSH Past Medical History Medical History Anxiety Depression Obesity Surgical History Surgical History H/O arthroscopic knee surgery History of section Family History Family History Other Family history of malignant neoplasm Social History Social History Living arrangements: with family Meds Home Medications and Allergies Home Medications Medication Instructions Recorded Confirmed Type duloxetine 60 mg capsule,delayed 60 mg PO HS
[2022-11-22 12:32] LABS: Influenza A QL RT-PCR Negative (Negative); Influenza B QL RT-PCR Negative (Negative); SARS-CoV-2 RNA PCR Negative
[2022-11-22 13:00] VITALS: BP 109/78; PULSE 106; RESP 18; O2SAT 100
--- NOTE | 2022-11-22 13:36 | PM.IMHP ---
H&P: HPI History of Present Illness Date/Time: 11/22/22 13:36 Chief Complaint: abdominal pain Narrative: this is a 32-year-old female patient who has a history of frequent UTIs. The patient stated that she has UTI approximately every 2 months. The patient only has 1 congenital kidney. The patient has been complaining of right flank pain. The patient stated that this pain started on Saturday. She had an appointment with the urologist today but did not make it to that appointment. The patient was taking Tylenol without much relief. She did not take anything today. She has been having general malaise and fever up to 102 at home. She also had nausea vomiting urinary frequency and urgency. She denies any diarrhea constipation. Urology has been consulted. Her white count is 17.3 sodium 135. Creatinine 1.10. Urine ketones 3+ urine nitrate positive urine bilirubin 1+. Leukocyte esterase 1+ and 4+ Bacteria. The patient was started on Rocephin. The patient was given morphine in the emergency room however her blood pressure was low. She is requesting more pain medication but her blood pressure is too low at this time. The patient has received 1 L of fluids in the emergency room. The patient was given Zofran but she stated did not resolve her nausea and that she stated Phenergan helped her in the past. The patient complains of right flank pain and was given IV Tylenol. When I called back to check on the patient she stated that Tylenol did not help her. The patient's pulse rate is 118. The patient is being admitted to observation status on the date of service of 11/22/2022. Review of Systems Review of Systems: See HPI All systems reviewed & are unremarkable except as noted in HPI and below Constitutional: Constitutional: Reports as per HPI and Reports no additional constitutional complaints Eyes: Eyes: Reports as per HPI and Reports no additional eye complaints ENT: Reports system reviewed and no additional complaints, except as documented and Reports Normal hearing present Cardiovascular: Cardiovascular: Reports no additional cardiovascular complaints Respiratory: Respiratory: Reports no additional respiratory complaints and Reports no additional respiratory complaints Gastrointestinal: Gastrointestinal: Reports as per HPI and Reports no additional gastrointestinal complaints Musculoskeletal: Musculoskeletal: Reports no additional musculoskeletal complaints Integumentary/Breasts: Skin/Breast: Reports system reviewed and no additional complaints, except as docu and Reports as per HPI Neurologic: Reports system reviewed and no additional complaints, except as documented, Reports as per HPI and Reports Normal hearing present Psychiatric: Psychiatric: Reports no additional psychiatric complaints and Reports as per HPI Endocrine: Endocrine: Reports no additional endocrine complaints Hematologic/Lymphatic: Hematologic/Lymphatic: Reports no additional hematologic/lymphatic complaints Allergic/Immunologic: Allergic/Immunologic: Reports no additional allergic/immunologic complaints [facility] Past Medical History Medical History (Updated 11/22/22 @ 15:34 by Kaylen Rolon NP) Anxiety Bipolar disorder Depression Obesity Surgical History Surgical History (Updated 11/22/22 @ 15:37 by Kaylen Rolon NP) H/O arthroscopic knee surgery H/O breast augmentation H/O hysterectomy for benign disease History of breast lift History of section Status post laparoscopic surgery fallopian tube Family History Family History Father Cancer Grandparent Heart disease Other Family history of malignant neoplasm Social History Social History (Updated 11/22/22 @ 15:38 by Kaylen Rolon NP) Social History: she lives with her family. she is and has two children. She works at [employer] and side of [employer]. Code [address]
[2022-11-22 14:00] VITALS: BP 107/71; PULSE 118; RESP 16; TEMP 36.9; O2SAT 97
[2022-11-22] MEDS: PROMETHAZINE HCL 25 MG/ML AMPUL 12.5 MG IV PUSH ×2 (14:05→20:20)
[2022-11-22 14:11] VITALS: BMI 31.6
--- NOTE | 2022-11-22 14:25 | ADMGEN ---
This patient, Ting Fitzpatrick, was admitted to [address] [facility] Surg Room 325-01. Patient/family oriented to hospital policies and general routines including ID bracelet, bed and alarms, visiting hours, pain management, procedures, bathroom and other care routines, personal items, smoking policy, room service/diet, and visiting hours. Information on how to activate the Rapid Response Team has been discussed. Patient/Family are encouraged to report perceived risks to care and to ask questions if they do not understand what they are told or what they should do.
[2022-11-22] MEDS: KETOROLAC 15 MG/ML VIAL (*BKC) IV PUSH (16:08)
[2022-11-22] MEDS: HYDROcodone/acetaminophen (*CRX) 5-325 MG TABLET 1 TAB PO ×2 (16:09→20:19)
[2022-11-22] MEDS: SODIUM CHLORIDE 0.9% IV 1,000 ML 100 ML IV CONT (17:51)
[2022-11-22 20:00] VITALS: O2SAT 98
[2022-11-22] MEDS: DULoxetine HCL 60 MG CAPSULE.DR PO (20:19)
[2022-11-22] MEDS: QUEtiapine FUMARATE 100 MG TABLET 200 MG PO (20:20)
[2022-11-22 22:00] VITALS: BP 88/58; PULSE 83; RESP 17; TEMP 35.6; O2SAT 94
[2022-11-22 23:55] VITALS: BP 83/55; PULSE 73; RESP 18; TEMP 36.4; O2SAT 98
--- NOTE | 2022-11-23 00:25 | PC.NURSE ---
2199 Spoke with Kaylen Rolon COMMUNITY SERVICE OFFICER COORDINATOR at this time r/t patient's bp 88/58. New orders received to give 1L NS bolus and to hold NORCO and to continue with 1 Gm IV tylenol Q6h PRN. 2349 Spoke with Kaylen Rolon COMMUNITY SERVICE OFFICER COORDINATOR at this time r/t sepsis alert. Says to recheck patient's temp orally. New oral temp 97.5. Sepsis alert removed.
[2022-11-23] MEDS: SODIUM CHLORIDE 0.9% IV 1,000 ML 100 ML IV CONT ×2 (04:33→19:58)
[2022-11-23 06:00] VITALS: BP 84/58; PULSE 81; RESP 16; TEMP 36.8; O2SAT 93
[2022-11-23 06:25] LABS: Basophils Percent Auto 0.1 % (0.2-1.2); Eosinophils Absolute Auto 0.1 K/mm3 (0-0.3); Eosinophils Percent Auto 1.3 % (0-4.4); Immature Granulocyte Absolute 0.04 K/mm3 (0.00-0.031); Immature Granulocyte Percent A 0.4 % (0-0.5); Lymphocytes Absolute Auto 1.25 K/mm3 (0.9-3.2); Lymphocytes Percent Auto 12.8 % (18.3-44.2); Mean Corpuscular HGB Conc 32.3 g/dl (32-36); Mean Corpuscular Hemoglobin 28.4 pg (26-34); Mean Corpuscular Volume 88.1 fl (80-100); Monocytes Absolute Auto 1.4 K/mm3 (0.1-0.6); Monocytes Percent Auto 13.9 % (2.6-8.5); Neutrophils Percent Auto 71.5 % (45.5-73.1); Platelet Count Result 152 k/mm3 (150-375); Red Blood Count 3.52 M/mm3 (4.2-5.4); Red Cell Distribution Width 15.3 % (11.5-14.5); White Blood Count 9.8 K/mm3 (4.5-10.0)
[2022-11-23 06:26] LABS: Alanine Aminotransferase 14 U/L (6-35); Alkaline Phosphatase 96 U/L (38-126); Anion Gap 4 mmol/L (8-16); Aspartate Amino Transferase 15 U/L (14-36); Bilirubin,Total 0.7 mg/dL (0.2-1.3); Blood Urea Nitrogen 11 mg/dL (7-17); Calcium 7.5 mg/dL (8.4-10.2); Carbon Dioxide 25 mmol/L (22-30); Chloride 109 mmol/L (98-107); Estimated CRCL calculation 77 ml/min; Estimated Glomerular Filt Rate > 60; Glucose 94 mg/dL (65-110); Magnesium 1.9 mg/dL (1.6-2.3); Potassium 3.6 mmol/L (3.4-5.0); Sodium 138 mmol/L (137-145)
[2022-11-23 06:35] LABS: Lactic Acid Reflex 0.5 mmol/L (0.7-2.0)
--- NOTE | 2022-11-23 06:35 | PC.NURSE ---
Message left for Dr. Zavaleta to return call r/t patient's BP and Hgb.
--- NOTE | 2022-11-23 06:44 | PC.NURSE ---
Spoke with Dr. Zavaleta at this time about low BP and decreased Hgb. New orders to monitor H&H Q6H and to give 1L NS bolus.
[2022-11-23] MEDS: SODIUM CHLORIDE 0.9% IV 1,000 ML 999 ML IV CONT (06:55)
[2022-11-23] MEDS: ENOXAPARIN 40 MG/0.4 ML SYRINGE SUB-Q (08:26)
[2022-11-23] MEDS: PROMETHAZINE HCL 25 MG/ML AMPUL 12.5 MG IV PUSH (08:37)
[2022-11-23 12:24] LABS: Hematocrit 31.1 % (37.0-47.0)
[2022-11-23 12:30] VITALS: BP 108/64; PULSE 84; RESP 18; TEMP 36.3; O2SAT 95
[2022-11-23 14:22] VITALS: BP 121/67; PULSE 91; RESP 17; TEMP 36.5; O2SAT 100
--- NOTE | 2022-11-23 15:05 | PM.IMPN ---
Progress Note: A&P Assessment and Plan (1) Sepsis with hypotension: Code(s): A41.9 - Sepsis, unspecified organism; I95.9 - Hypotension, unspecified Status: Acute Assessment and Plan: Patient presents with abdominal and back pain. He is found to have elevated white count and tachycardia. Blood pressure became soft dropped to 83/55. She is fluid responsive and blood pressure has improved with IV fluids. Suspect related to her pyelonephritis. White count has improved. Tachycardia has improved. Continue IV fluids. (2) Pyelonephritis of right kidney: Code(s): N12 - Tubulo-interstitial nephritis, not specified as acute or chronic Status: Acute Assessment and Plan: UA noted. Started on Rocephin . Neurology has been consulted and appreciate their input. CT of the abdomen and pelvis shows enlarged right kidney with perinephric and proximal periureteral stranding consistent with ascending urinary tract infection with pyelonephritis. There is mild wall thickening of the bladder noted as well. Blood cultures are no growth to date. Urine cultures pending. White count has normalized. Clinically feels improved. Follow-up on culture results. (3) Anemia: Code(s): D64.9 - Anemia, unspecified Status: Acute Assessment and Plan: Hemoglobin normal on admission. Hemoglobin has dropped to 10 range but stable on repeat. Suspect decrease in hemoglobin value related to IV fluids. Will continue to monitor. (4) Congenital solitary kidney: Code(s): Q60.0 - Renal agenesis, unilateral Status: Acute Assessment and Plan: Creatinine 1.1 with a normal BUN on admission. Creatinine has improved slightly to 1.0 with IV fluids. Continue monitor. (5) Chronic cystitis: Code(s): N30.20 - Other chronic cystitis without hematuria Status: Acute Assessment and Plan: Patient has chronic cystitis. Urology consulted. Plan for daily Keflex once she has completed treatment for her current infection. (6) Bipolar disorder: Code(s): F31.9 - Bipolar disorder, unspecified Status: Acute Assessment and Plan: Mood stable. Continue home duloxetine and Seroquel. Plan DVT Prophylaxis - Lovenox Code status - Full Subjective Date/time seen: 11/23/22 15:05 Interval history: 32yo female with solitary kidney, bipolar disorder and chronic cystitis here for abdominal and back pain. She feels better. BP was low but improved now. Back pain better. Back pain right lateral back area. No CP or SOB. No dysuria. Exam Narrative: AF 97.7 121/67 91 17 100% ra Gen - NARD Chest - CTA bilaterally, nml RR CV - RRR S1/S2 Abd - Soft, NT/ND, Positive BS Back - Rt CVA tenderness Ext - No pedal edema Psych - Nml mood and affect Skin - Warm and dry Objective Data Vital Signs Vital Signs: Vital Signs - 24 hr 11/22/22 22:00 11/22/22 23:55 11/22/22 20:00 Temperature 96.1 F L 97.5 F L Pulse Rate 83 73 Respiratory Rate 17 18 Blood Pressure 88/58 L 83/55 L Pulse Oximetry 94 98 98 Oxygen Delivery Room Air 11/23/22 06:00 11/23/22 08:00 11/23/22 12:30 Temperature 98.3 F 97.4 F L Pulse Rate 81 84 Respiratory Rate 16 18 Blood Pressure 84/58 L 108/64 Pulse Oximetry 93 95 Oxygen Delivery Room Air 11/23/22 14:22 Temperature 97.7 F Pulse Rate 91 Respiratory Rate 17 Blood Pressure 121/67 Pulse Oximetry 100 Oxygen Delivery Intake/Output Intake/Output: Intake & Output 11/20/22 11/21/22 11/22/22 11/23/22 23:59 23:59 23:59 23:59 Intake Total 3425 1755 Balance 3425 1755 Meds/Results Medications: Active Medications Generic Name Dose Route Start Last Admin Trade Name Freq PRN Reason Stop Dose Admin Hydrocodone Bitart/Acetaminophen 1 tab 11/22/22 15:09 11/22/22 20:19 Hydrocodone/Acetaminophen (*Crx) 5-325 Mg Tablet PO 1 tab Q4H PRN Administration Pain Rated 4-6 Hydrocodo
[2022-11-23 18:30] LABS: Hematocrit 33.6 % (37.0-47.0); Hemoglobin 10.8 g/dL (12.0-15.0)
[2022-11-23] MEDS: HYDROcodone/acetaminophen (*CRX) 5-325 MG TABLET 1 TAB PO (19:57)
[2022-11-23] MEDS: QUEtiapine FUMARATE 100 MG TABLET 200 MG PO (19:58)
[2022-11-23 20:00] VITALS: BP 103/68; PULSE 98; RESP 19; TEMP 36.4; O2SAT 97
[2022-11-24 00:44] LABS: Hematocrit 30.1 % (37.0-47.0); Hemoglobin 9.8 g/dL (12.0-15.0)
[2022-11-24] MEDS: SODIUM CHLORIDE 0.9% IV 1,000 ML 100 ML IV CONT (05:35)
[2022-11-24] MEDS: DULoxetine HCL 60 MG CAPSULE.DR PO (05:56)
[2022-11-24 06:00] VITALS: BP 93/55; PULSE 90; RESP 16; TEMP 36.7; O2SAT 94
[2022-11-24 07:09] LABS: Basophils Percent Auto 0.2 % (0.2-1.2); Eosinophils Absolute Auto 0.2 K/mm3 (0-0.3); Eosinophils Percent Auto 2.6 % (0-4.4); Hematocrit 29.8 % (37.0-47.0); Hemoglobin 9.6 g/dL (12.0-15.0); Immature Granulocyte Absolute 0.03 K/mm3 (0.00-0.031); Immature Granulocyte Percent A 0.4 % (0-0.5); Lymphocytes Absolute Auto 2.02 K/mm3 (0.9-3.2); Lymphocytes Percent Auto 25.2 % (18.3-44.2); Mean Corpuscular HGB Conc 32.2 g/dl (32-36); Mean Corpuscular Hemoglobin 28.8 pg (26-34); Mean Corpuscular Volume 89.5 fl (80-100); Mean Platelet Volume 10.2 fl (7.4-10.4); Monocytes Absolute Auto 0.8 K/mm3 (0.1-0.6); Monocytes Percent Auto 10.5 % (2.6-8.5); Neutrophils Absolute Auto 4.9 K/mm3 (1.3-6.7); Neutrophils Percent Auto 61.1 % (45.5-73.1); Platelet Count Result 186 k/mm3 (150-375); Red Blood Count 3.33 M/mm3 (4.2-5.4); Red Cell Distribution Width 15.7 % (11.5-14.5)
[2022-11-24 07:24] LABS: Serum Qual hCG Negative
[2022-11-24 07:27] LABS: Albumin Level 2.8 g/dL (3.5-5.1); Anion Gap 4 mmol/L (8-16); Blood Urea Nitrogen 4 mg/dL (7-17); Calcium 7.7 mg/dL (8.4-10.2); Carbon Dioxide 25 mmol/L (22-30); Chloride 107 mmol/L (98-107); Estimated CRCL calculation 94 ml/min; Estimated Glomerular Filt Rate > 60; Glucose 89 mg/dL (65-110); Phosphorus 3.4 mg/dL (2.5-4.5); Potassium 3.5 mmol/L (3.4-5.0); Sodium 136 mmol/L (137-145)
[2022-11-24 07:52] LABS: SPREG INTERNAL CONTROL Positive
[2022-11-24] MEDS: ENOXAPARIN 40 MG/0.4 ML SYRINGE SUB-Q (08:52)
[2022-11-24 09:00] VITALS: BP 103/60
[2022-11-24 11:52] LABS: Hematocrit 29.7 % (37.0-47.0); Hemoglobin 9.6 g/dL (12.0-15.0)
--- NOTE | 2022-11-24 14:20 | PM.DS ---
DS: Admitting Diagnosis Discharge Date 11/24/22 Admitting Diagnosis Abdominal and back pain. DS: Discharge Diagnosis Discharge Diagnosis (1) Sepsis with hypotension: Code(s): A41.9 - Sepsis, unspecified organism; I95.9 - Hypotension, unspecified Status: Acute (2) Pyelonephritis of right kidney: Code(s): N12 - Tubulo-interstitial nephritis, not specified as acute or chronic Status: Acute (3) Anemia: Code(s): D64.9 - Anemia, unspecified Status: Acute (4) Congenital solitary kidney: Code(s): Q60.0 - Renal agenesis, unilateral Status: Acute (5) Chronic cystitis: Code(s): N30.20 - Other chronic cystitis without hematuria Status: Acute (6) Bipolar disorder: Code(s): F31.9 - Bipolar disorder, unspecified Status: Acute DS: Summary Hospital Course Reason for hospitalization: 32yo female with solitary kidney, bipolar disorder and chronic cystitis here for abdominal and back pain. Please see H&P for details. Hospital Course: Patient presents with abdominal and back pain.? He is found to have elevated white count and tachycardia.? Blood pressure became soft dropped to 83/55.? Her BP was fluid responsive and blood pressure improved.? Suspect HoTN related to her pyelonephritis.? White count normalized. Tachycardia has improved.? UA concerning for UTI and started on Rocephin.?Urology was consulted and appreciate their input.? CT of the abdomen and pelvis showed enlarged right kidney with perinephric and proximal periureteral stranding consistent with ascending urinary tract infection with pyelonephritis.? There is mild wall thickening of the bladder noted as well.? Blood cultures are no growth to date.? Urine culture grew EColi sensitive to Rocephin. Hemoglobin was normal on admission.? Hemoglobin dropped to 9-10 range but stable on repeat.? Suspect decrease in hemoglobin related to IV fluids.? Creatinine 1.1 with a normal BUN on admission.? Creatinine has improved to 0.8 with IV fluids.?Patient has chronic cystitis. Urology recommend daily Keflex once she has completed treatment for her current infection. He had clinical improvement. She overall did well and was able to be discharged home on 11/24/22. Discharge instructions discussed. Status at Discharge Cognitive/behavioral status at discharge: Stable Time Spent with Patient Time attestation: Total time spent providing and/or coordinating discharge services: 32 minutes Time spent: Greater than 30 minutes Exam Narrative: AF 98.1 103/60 90 16 94% ra Gen - NARD Chest - CTA bilaterally, nml RR CV - RRR S1/S2 Abd - Soft, NT/ND, Positive BS Back - mild Rt CVA tenderness Ext - No pedal edema Psych - Nml mood and affect Skin - Warm and dry DS: Data Data Completed and Pending Labs on day of discharge: Labs from last 24 hours 11/24/22 11/24/22 11/24/22 11:39 06:43 06:43 WBC 8.0 RBC 3.33 L Hgb 9.6 L 9.6 L Hct 29.7 L 29.8 L MCV 89.5 MCH 28.8 MCHC 32.2 RDW 15.7 H Plt Count 186 MPV 10.2 Immature Gran % (Auto) 0.4 Neut % (Auto) 61.1 Lymph % (Auto) 25.2 [place] % (Auto) 10.5 H Eos % (Auto) 2.6 Baso % (Auto) 0.2 Lymph # (Auto) 2.02 [place] # (Auto) 0.8 H Eos # (Auto) 0.2 Baso # (Auto) 0.0 Abs Immat Gran (auto) 0.03 Absolute Neuts (auto) 4.9 Absolute Nucleated RBC 0.0 Nucleated RBC % 0.0 Sodium 136 L Potassium 3.5 Chloride 107 Carbon Dioxide 25 Anion Gap 4 L BUN 4 L D Creatinine 0.80 Estim Creat Clear Calc 94 Estimated GFR > 60 Glucose 89 Calcium 7.7 L Phosphorus 3.4 Albumin 2.8 L Serum HCG, Qual Negative 11/24/22 11/23/22 00:39 18:21 WBC RBC Hgb 9.8 L 10.8 L Hct 30.1 L 33.6 L MCV MCH MCHC RDW Plt Count MPV Immature Gran % (Auto) Neut % (Auto) Lymph % (Auto) [place] % (Auto) Eos % (Auto) Baso % (Auto) Lymph # (Auto) [place]
== END 2022-11-24 15:15 | disposition home or self-care (01) ==
LOC: ANHED 12:48 → ANH3MEDSUR 13:37
PROVIDERS: Internal Medicine; Nurse Practitioner; Admitting Provider Family Medicine; Emergency Provider Physician Assistant; PCP Physician Assistant; Visit Provider Internal Medicine
DX: A41.9 Sepsis, unspecified organism (principal); I95.9 Hypotension, unspecified; N12 Tubulo-interstitial nephritis, not specified as acute or chronic; D64.9 Anemia, unspecified; Q60.0 Renal agenesis, unilateral; N30.20 Other chronic cystitis without hematuria; B96.20 Unspecified Escherichia coli [E. coli] as the cause of diseases classified elsewhere; F31.9 Bipolar disorder, unspecified; F41.9 Anxiety disorder, unspecified; Z20.822 Contact with and (suspected) exposure to COVID-19; R00.0 Tachycardia, unspecified; E66.9 Obesity, unspecified; Z68.31 Body mass index [BMI] 31.0-31.9, adult; Z87.440 Personal history of urinary (tract) infections; Z79.899 Other long term (current) drug therapy
CPT/HCPCS: 36415; 74176; 80053; 80069; 81001; 81025; 83605; 83690; 83735; 84443; 84703; 85014; 85018; 85025; 87040; 87077; 87086; 87186; 87636; 96360; 96361; 96365; 96366; 96372; 96375; 96376; 99285; A9270; G0378; J0131; J0696; J1650; J1885; J2270; J2405; J2550; J7030

== ENCOUNTER 2024-12-31 10:25 | Outpatient (CLI) | payer OTHER, SELFPAY ==
--- NOTE | ~2024-12-31 | XR_ITS ---
AP and lateral views of the left hip Clinical history: Pain Findings: No acute fracture or dislocation is seen. Osseous alignment is anatomic. Left hip joint is intact. Soft tissues are unremarkable. Impression: No significant abnormality is seen. Reviewed, dictated and finalized at location M. Impression: No significant abnormality is seen.
--- NOTE | ~2024-12-31 | XR_ITS ---
Lumbosacral Spine: AP and lateral views Clinical History: Pain Findings: The normal lordotic curve is maintained. The vertebral bodies and posterior elements are i ntact. The intervertebral disc spaces are preserved. Moderate facet arthropathy present throughout t he lumbar spine. The sacroiliac joints are normally outlined. Impression: Moderate facet arthropathy throughout the lumbar spine. Reviewed, dictated and finalized at location . Impression: Moderate facet arthropathy throughout the lumbar spine.
== END 2024-12-31 10:26 | disposition home or self-care (01) ==
PROVIDERS: PCP Physician Assistant; Visit Provider Physician Assistant
DX: M47.896 Other spondylosis, lumbar region (principal)
CPT/HCPCS: 72100; 73502

== ENCOUNTER 2025-06-21 16:39 | Observation (INO) | payer OTHER, SELFPAY ==
--- NOTE | ~2025-06-21 | CT_ITS ---
CT abdomen pelvis w con Clinical History: ruq pain, n/v . Comparison: 11/22/2022 Technique: Axial images lung bases to symphysis pubis IV contrast information not listed in PACS Coronal, sagittal reformats CT images acquired with automatic exposure control for dose reduction DLP: 645 mGy-cm Findings: Lung bases: Clear. Visualized heart and pericardium: Unremarkable. Liver: Unremarkable. Gallbladder: Wall thickening. Stones. Spleen: Unremarkable. Pancreas: Unremarkable. Adrenal glands: Unremarkable. Kidneys: Right kidney- No hydronephrosis. No renal stones. Left kidney-absent. Distal esophagus/stomach: Unremarkable. Small bowel loops: Normal caliber and wall thickness. Colon: Apparent sigmoid wall thickening but under distended. Normal RLQ appendix. Nodes: No enlarged nodes. Peritoneum: No ascites. No free air. Urinary bladder: Unremarkable. Uterus: Removed. Adnexa: No masses. Bones: No acute bony abnormality. Soft tissues: Unremarkable. Aorta: No aneurysm or dissection. IVC: Unremarkable. Main portal vein/SMV/splenic vein: Patent. IMPRESSION: 1. Worrisome for acute cholecystitis. Reviewed, dictated and finalized at location R.
--- NOTE | ~2025-06-21 | US_ITS ---
US abdomen limited INDICATION: Elevated liver enzymes. PROCEDURE: Realtime right upper abdominal ultrasound. COMPARISON: CT dated 06/21/2025 FINDINGS: The pancreas is normal without focal mass or pancreatic ductal dilation. Liver echotexture is heterogeneously increased in the left hepatic lobe, likely related to fatty infiltration. There is normal directional flow in the portal vein. There are gallstones. Common bile duct measures 8 mm. Positive Sonographic Bruno's sign. Gallbladder wall thickening. Heterogeneously increased left hepatic lobe echotexture, likely related to fatty infiltration. sonographic Bruno's sign. IMPRESSION: 1: Cholelithiasis with dilation of the common bile duct measuring 8 mm and gallbladder wall thickening. Positive sonographic Bruno sign. Findings suspicious for cholecystitis. Clinically correlate. Reviewed, dictated and finalized at location B. IMPRESSION: 1: Cholelithiasis with dilation of the common bile duct measuring 8 mm and gall bladder wall thickening. Positive sonographic Bruno sign. Findings suspicious for cholecystitis. Clinically correlate.
--- NOTE | ~2025-06-21 | MR_ITS ---
EXAMINATION: MR MRCP wo/w con/w 3D wo ind DATE: 06/22/2025 13:19 INDICATION: Abnormal liver function tests. Common bile duct dilatation. TECHNIQUE: Magnetic resonance imaging (MRI) of the abdomen was performed without and with 20 mL MultiHance intravenous contrast. Sequences included coronal T2- weighted FS FSE, coronal T2-weighted FSE, axial T1-weighted LAVA, coronal FS FIESTA, axial dual-echo T1-weighted SPGR, coronal lava-FLEX, sagittal T2- weighted FSE, axial T2-weighted FSE, and axial DWI. Thick-slab T2-weighted FSE images were obtained for magnetic resonance cholangiopancreatography (MRCP). Maximum intensity projection 3-D reconstructions of the volumetric data were created by the technologist. Postcontrast sequences included coronal LAVA-flex and time course of axial T1-weighted LAVA. COMPARISON: Ultrasound 06/22/2025, CT abdomen and pelvis 06/21/2025 FINDINGS: ABDOMEN MRI: Breast implants are noted. The liver is normal. There are gallstones in the gallbladder, which is normal in size. Gallbladder wall thickening is noted. The spleen, pancreas, adrenal glands, and right kidney are normal. Left kidney is absent. ABDOMEN MRCP: The common duct measures 7 mm. There is no choledocholithiasis. IMPRESSION: 1. Normal sized gallbladder with gallstones, gallbladder wall thickening, and positive sonographic Bruno sign on prior ultrasound suspicious for acute cholecystitis. 2. Mildly dilated common duct. No choledocholithiasis. Reviewed, dictated and finalized at location E. IMPRESSION: 1. Normal sized gallbladder with gallstones, gallbladder wall thickening, and p ositive sonographic Bruno sign on prior ultrasound suspicious for acute cholec ystitis. 2. Mildly dilated common duct. No choledocholithiasis.
[2025-06-21 16:50] VITALS: BP 115/79; PULSE 86; RESP 18; TEMP 36.9; O2SAT 97
--- OUTSIDE RECORDS SUMMARY | 2025-06-21 17:07 | XMS_ITS | Encounter Summary ---
Author Organization [facility] Address [address] [place] [address] Care Team Providers Care Landscaper Helper Name Role Phone Unavailable Primary Care Provider Unavailabl e Encounter Details Date Type Department Care Team (Late st Contact Info) Description 06/13/2018 [facility] Outpatient Visit [facility] Orthopedics - Radiology [address] [place] [address] [place] [address] Nitin Dee MD [address] [place] [id number] Social History Tobacco Use Types Packs/Day Years Used Date Smoking Tobacco: Never Smokeless Tobacco: Never Alcohol Use Standard Drinks/Week Comments Yes 0 (1 standard drink = 0.6 oz pur e alcohol) rare Comments Unknown Sex and Gender Information Value Date Recorded Sex Assigned at Not on file Legal Sex Female 6:[address] Gender Identity Not on file Sexual Orientation Not on file documented as of this encounter Plan of Treatment Not on file documented as of this encounter Visit Diagnoses Not on filedocumented in this encounter
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
--- OUTSIDE RECORDS SUMMARY | 2025-06-21 17:07 | XMS_ITS | Data Portability ---
Author Organization [place] - [facility] [employer], Main Office Address [address] [place] [address] Care Team Providers Care Office Correspondent Name Role Phone DAVI MONTES DE OCA Primary Care Provider [phone] DAVI MONTES DE OCA Referring Provider [phone] Assessment No assessment recorded. Plan of Treatment Reminders Order Date Submit Date Provider Last Modified By Organization Details Last Modified Time Details Appointments None record ed. Lab None record ed. Referral None record ed. Procedures None record ed. Surgeries None record ed. Imaging None record ed. Medication Orders None record ed. Patient TargetsNo targets recorded. Patient InstructionsNo instructions recorded. Reason for Referral None Reported. Results Created Date Observation Date Name Description Value Unit Range Abnormal Flag Note LastModifiedBy Organization Detail LastModifiedTime 07/27/20 22 07/30/2022 INSUL IN insulin 8.3 uIU/m L normal Refer ence Range < or = 19.6 Risk: Optim al < or = 19.6 Moder ate NA High >19.6 Adult cardi ovasc ular event risk categ ory cut point s (opti mal, moder ate, high) are based on [facility] popul ation data from 09/11 11. This insul in assay shows stron g cross -reac tivit y for some insul in analo gs (lisp ro, aspar t, and glarg ine) and much lower cross -reac tivit y with other s (dete ronan, gluli sine) . Not Available [facility] [address] , [place], [address], 07/30/2022 14:01:26 07/27/20 22 07/30/2022 VITAM IN B12/F OLATE , SERUM PANEL vitamin B12 315 pg/mL 200-11 00 normal Pleas e Note: Altho ugh the refer ence range for vitam in B12 is 200-1 100 pg/mL , it has been repor bill that betwe en 5 and 10% of patie nts with value s betwe en 200 and 400 pg/mL may exper ience neuro psych iatri c and hemat ologi c abnor malit ies due to occul t B12 defic iency ; less than 1% of patie nts with value s above 400 pg/mL will have sympt oms. Not Available [facility] [address], [address], 07/30/2022 14:01:26 07/27/20 22 07/30/2022 VITAM IN B12/F OLATE , SERUM PANEL folate, serum 4.2 NG/mL low Refer ence Range Low: <3.4 Borde rline : 3.4-5 .4 Ingrid l: >5.4 Not Available [facility] [address], [address], 07/30/2022 14:01:26 07/27/20 22 07/30/2022 CBC (INCL UDES DIFF/ PLT) white blood cell count 7.3 thous and/u L 3.8-10 .8 normal Not Available [facility] [address], [address], 07/30/2022 14:01:25 07/27/20 22 07/30/2022 CBC (INCL UDES DIFF/ PLT) red blood cell count 4.11 jose on/uL 3.80-5 .10 normal Not Available [facility] [address], [address], 07/30/2022 14:01:25 07/27/20 22 07/30/2022 CBC (INCL UDES DIFF/ PLT) hemoglobin 11.4 g/dL 11.7-1 5.5 low Not Available [facility] [address], [address], 07/30/2022 14:01:25 07/27/20 22 07/30/2022 CBC (INCL UDES DIFF/ PLT) hematocrit 34.6 % 35.0-4 5.0 low Not Available [address], [address], 07/30/2022 14:01:25 07/27/20 22 07/30/2022 CBC (INCL UDES DIFF/ PLT) MCV 84.2 fL 80.0-1 00.0 normal Not Available [address], [address], 07/30/2022 14:01:25 07/27/20 22 07/30/2022 CBC (INCL UDES DIFF/ PLT) MCH 27.7 pg 27.0-3 3.0 normal Not Available [address], [address], 07/30/2022 14:01:25 07/27/20 22 07/30/2022 CBC (INCL UDES DIFF/ PLT) MCHC 32.9 g/dL 32.0-3 6.0 normal Not Available [address], [address], 07/30/2022 14:01:25 07/27/20 22 07/30/2022 CBC (INCL UDES DIFF/ PLT) RDW 14.8 % 11.0-1 5.0 normal Not Available [address], [address], 07/30/2022 14:01:25 07/27/20 22 07/30/2022 CBC (INCL UDES DIFF/ PLT) platelet count 245 thous and/u L 140-40 0 normal Not Available [address], [address], 07/30/2022 14:01:25 07/27/20 22 07/30/2022 CBC (INCL UDES DIFF/ PLT) MPV 9.9 fL 7.5-12 .5 normal Not Available [address], [address], 07/30/2022 14:01:25 07/27/20 22 07/30/2022 CBC (INCL UDES DIFF/ PLT) absolute neutrophils 4351 cells /uL 1500-7 800 normal Not Available [address], [address], 07/30/2022 14:01:25 07/27/20 22 07/30/2022 CBC (INCL UDES DIFF/ PLT) absolute lymphocytes 2387 cells /uL 850-39 00 normal Not Available [address], [address], 07/30/2022 14:01:25 07/27/20 22 07/30/2022 CBC (INCL UDES DIFF/ PLT) absolute monocytes 358 cells /uL 200-95 0 normal Not Available [address], [address], 07/30/2022 14:01:25 07/27/20 22 07/30/2022 CBC (INCL UDES DIFF/ PLT) absolute eosinophils 168 cells /uL 15-500 normal Not Available [address], [address], 07/30/2022 14:01:25 07/27/20 22 07/30/2022 CBC (INCL UDES DIFF/ PLT) absolute basophils 37 cells /uL 0-200 normal Not Available [address], [address], 07/30/2022 14:01:25 07/27/20 22 07/30/2022 CBC (INCL UDES DIFF/ PLT) neutrophils 59.6 % normal Not Available [address], [address], 07/30/2022 14:01:25 07/27/20 22 07/30/2022 CBC (INCL UDES DIFF/ PLT) lymphocytes 32.7 % normal Not Available [address], [address], 07/30/2022 14:01:25 07/27/20 22 07/30/2022 CBC (INCL UDES DIFF/ PLT) monocytes 4.9 % normal Not Available [address], [address], 07/30/2022 14:01:25 07/27/20 22 07/30/2022 CBC (INCL UDES DIFF/ PLT) eosinophils 2.3 % normal Not Available [address], [address], 07/30/2022 14:01:25 07/27/20 22 07/30/2022 CBC (INCL UDES DIFF/ PLT) basophils 0.5 % normal Not Available [address], [address], 07/30/2022 14:01:25 07/27/20 22 07/30/2022 T3, FREE T3, free 2.6 pg/mL 2.3-4. 2 normal Not Available [address], [address], 07/30/2022 14:01:07/27/2007/30/2022 HEMOG LOBIN A1C hemoglobin A1C 5.4 %_of_ total _HGB <5.7 normal For the purpo se of scree iris for the prese nce of diabe jerome: <5.7% Consi stent with the absen ce of diabe jerome 5.7-6 .4% Consi stent with incre ased risk for diabe jerome (pred iabet es) > or =6.5% Consi stent with diabe jerome This assay resul t is consi stent with a decre ased risk of diabe jerome. Curre ntly, no conse nsus exist s regar ding use of hemog lobin A1c for diagn osis of diabe jerome in child [place]. Accor ding to Ameri can Diabe jerome Assoc iatio n (ADA) guide lines , hemog lobin A1c <7.0% repre sents optim al contr ol in non-p regna nt diabe tic patie nts. Diffe rent metri cs may apply to speci fic patie nt popul ation s. Stand ards of Medic al Care in Diabe jerome(A DA). Not Available [facility] [place] [address] [place], [address], 07/30/2022 14:01:24 07/27/20 22 07/30/2022 COMPR EHENS ORION METAB OLIC PANEL glucose 88 mg/dL 65-99 normal Fasti ng refer ence inter bert Not Available [facility] [address] [address] [place], [address], 07/30/2022 14:01:23 07/27/20 22 07/30/2022 COMPR EHENS ORION METAB OLIC PANEL urea nitrogen (BUN) 14 mg/dL 7-25 normal Not Available [facility] [address] [address] [place], [address], 07/30/2022 14:01:23 07/27/20 22 07/30/2022 COMPR EHENS ORION METAB OLIC PANEL creatinine 1.39 mg/dL 0.50-0 .97 high Not Available [facility] [address], [address], 07/30/2022 14:01:23 07/27/20 22 07/30/2022 COMPR EHENS ORION METAB OLIC PANEL eGFR 51 mL/mi n/1.7 3m2 > or = 60 low The eGFR is based on the CKD-E PI 2020 equat ion. To calcu late the new eGFR from a previ ous Creat inine or Cysta tin C resul t, go to https ://tino w.salvador mezay.o kerry/henny king s/ kdoqi /gfr% 5Fcal culat or Not Available [facility] [place] [address] [place], [address], 07/30/2022 14:01:23 07/27/20 22 07/30/2022 COMPR EHENS ORION METAB OLIC PANEL BUN/creatini ne ratio 10 (calc ) 6-22 normal Not Available [address], [address], 07/30/2022 14:01:23 07/27/20 22 07/30/2022 COMPR EHENS ORION METAB OLIC PANEL sodium 140 mmol/ L 135-14 6 normal Not Available [address], [address], 07/30/2022 14:01:23 07/27/20 22 07/30/2022 COMPR EHENS ORION METAB OLIC PANEL potassium 4.0 mmol/ L 3.5-5. 3 normal Not Available [address], [address], 07/30/2022 14:01:23 07/27/20 22 07/30/2022 COMPR EHENS ORION METAB OLIC PANEL chloride 106 mmol/ L 98-110 normal Not Available [address], [address], 07/30/2022 14:01:23 07/27/20 22 07/30/2022 COMPR EHENS ORION METAB OLIC PANEL carbon dioxide 26 mmol/ L 20-32 normal Not Available [address], [address], 07/30/2022 14:01:23 07/27/20 22 07/30/2022 COMPR EHENS ORION METAB OLIC PANEL calcium 8.9 mg/dL 8.6-10 .2 normal Not Available [address] [place], [address], 07/30/2022 14:01:23 07/27/20 22 07/30/2022 COMPR EHENS ORION METAB OLIC PANEL protein, total 7.0 g/dL 6.1-8. 1 normal Not Available [address], [address], 07/30/2022 14:01:23 07/27/20 22 07/30/2022 COMPR EHENS ORION METAB OLIC PANEL albumin 4.1 g/dL 3.6-5. 1 normal Not Available [address], [address], 07/30/2022 14:01:23 07/27/20 22 07/30/2022 COMPR EHENS ORION METAB OLIC PANEL globulin 2.9 g/dL_ (calc ) 1.9-3. 7 normal Not Available [address], [address], 07/30/2022 14:01:23 07/27/20 22 07/30/2022 COMPR EHENS ORION METAB OLIC PANEL albumin/glob ulin ratio 1.4 (calc ) 1.0-2. 5 normal Not Available [address], [address], 07/30/2022 14:01:23 07/27/20 22 07/30/2022 COMPR EHENS ORION METAB OLIC PANEL bilirubin, total 0.4 mg/dL 0.2-1. 2 normal Not Available [address], [address], 07/30/2022 14:01:23 07/27/20 22 07/30/2022 COMPR EHENS ORION METAB OLIC PANEL alkaline phosphatase 65 U/L 31-125 normal Not Available [facility] [address], [address], 07/30/2022 14:01:23 07/27/20 22 07/30/2022 COMPR EHENS ORION METAB OLIC PANEL AST 12 U/L 10-30 normal Not Available [address], [address], 07/30/2022 14:01:23 07/27/20 22 07/30/2022 COMPR EHENS ORION METAB OLIC PANEL ALT 8 U/L 6-29 normal Not Available [address], [address], 07/30/2022 14:01:23 07/27/20 22 07/30/2022 LIPID PANEL WITH RATIO S cholesterol, total 144 mg/dL <200 normal Not Available [address], [address], 07/30/2022 14:01:22 07/27/20 22 07/30/2022 LIPID PANEL WITH RATIO S HDL cholesterol 36 mg/dL > or = 50 low Not Available [address], [address], 07/30/2022 14:01:22 07/27/20 22 07/30/2022 LIPID PANEL WITH RATIO S triglyceride s 98 mg/dL <150 normal Not Available [address], [address], 07/30/2022 14:01:22 07/27/20 22 07/30/2022 LIPID PANEL WITH RATIO S LDL-choleste rol 89 mg/dL _(kevin c) normal Refer ence range : <100 Ranjith able range <100 mg/dL for prima ry preve ntion ; <70 mg/dL for patie nts with CHD or diabe tic patie nts with > or = 2 CHD risk facto rs. LDL-C is now calcu lated using the Cristina n-Hop kins liz de jesus n, which is a valid ated novel tulio thompson r accur acy than the Fried rimma equat ion in the estim ation of LDL-C . Cristina uribe SS et al. MARIANELA. 2013; 310(1 9): 2061- 2068 (http ://ed ucati on.Qu estDi agnos tics. com/f aq/FA Q164) Not Available [address] [address] [place], [address], 07/30/2022 14:01:22 07/27/20 22 07/30/2022 LIPID PANEL WITH RATIO S chol/HDLC ratio 4.0 (calc ) <5.0 normal Not Available [address] [address] [place], [address], 07/30/2022 14:01:22 07/27/20 22 07/30/2022 LIPID PANEL WITH RATIO S LDL/HDL ratio 2.5 (calc ) Below avera ge Risk: <2.34 [place]ton ge Risk: 2.35- 4.12 Moder ate Risk: 4.13- 5.56 High Risk: >5.57 Not Available [address] [address] [place], [address], 07/30/2022 14:01:22 07/27/20 22 07/30/2022 LIPID PANEL WITH RATIO S non HDL cholesterol 108 mg/dL _(kevin c) <130 normal For patie nts with diabe jerome plus 1 major ASCVD risk facto r, treat ing to a non-H DL-C goal of <100 mg/dL (LDL- C of <70 mg/dL ) is krista lyles optio n. Not Available [address] [address] [place], [address], 07/30/2022 14:01:22 07/27/20 22 07/30/2022 TSH+F REE T4 TSH 2.62 mIU/L normal Refer ence Range > or = 20 Years 0.40- 4.50 Pregn oma Range s First trime ster 0.26- 2.66 Secon d trime ster 0.55- 2.73 Third trime ster 0.43- 2.91 Not Available [address] [address] [place], [address], 07/30/2022 14:01:21 07/27/20 22 07/30/2022 TSH+F REE T4 T4, free 1.0 NG/dL 0.8-1. 8 normal Not Available [facility] [address] [place], [address], 07/30/2022 14:01:21 02/08/20 21 02/06/2021 XR, hand No observ ation record ed. [id number] [facility] [address], [place], [address], 11/21/2022 18:55:00 03/01/20 21 03/02/2021 XR, hand No observ ation record ed. [id number] [address] [facility], [place], [address], 11/21/2022 18:55:00 03/09/20 21 02/24/2021 diagn ostic colon oscop y (PROC ) No observ ation record ed. [id number] Jose Price MD [address], [place], [address], 11/21/2022 18:55:00 04/27/20 22 04/26/2022 XR, knee No observ ation record ed. [id number] , [place], [address], 11/21/2022 18:55:00 06/24/20 23 11/22/2022 CT, abdom en + pelvi s, w/o contr ast No observ ation record ed. [address], [place], [address], 06/26/2023 15:16:03 Result Notes None recorded. Problems Name Problem SNOMED Code Status Onset Date Resolution Date Notes Provider Name and Address Organization Details Recorded Time Generalize d anxiety disorder 56937171 Active 2018 Not Available [facility] 3 18:52:58 Derangemen t of left knee 4815347768984 9108 Active 2021 Not Available [facility] 3 18:52:58 Pain of left knee joint 2587384104634 07 Active 2021 Not Available [facility] 3 18:52:58 Claustroph obia 49954055 Active 2021 Not Available [facility] 3 18:52:58 Weight gain 6599209 Active 2021 Not Available [facility] 3 18:52:58 Acute blephariti s 93928893 Active 2021 Not Available [facility] 3 18:52:59 Serum creatinine above reference range 154264714 Active 2021 Not Available [facility] 3 18:52:58 Irritable bowel syndrome characteri zed by constipati on 084400089 Active 2021 Not Available [facility] 3 18:52:58 Chronic idiopathic constipati on 04514245 Active 2022 ALEKSANDR Carpenter [address] [place] [address], [address] , [facility] [email or web address] [facility] 3 23:49:02 Notes:Some problems listed i n Document: #[id number] could not be added to this patient's chart. Please review this document and add these problems to the patient's chart manually as needed. Problem Notes None recorded. Procedures Surgical History Date Name Laterality Status Provider Name and Address Organization Details Recorded Time 7 Breast Implants completed Not Available [facility] 11/21/2022 18:52:09 Knee arthroscopy/s urgery completed Not Available [facility] 11/21/2022 18:52:09 completed Not Available [facility] 0 11/21/2022 18:52:09 Hip surgery completed Not Available [facility] 11/21/2022 18:52:09 Imaging Results None recorded. Procedure Notes None recorded. Medical Equipment None Reported. Allergies No known drug allergies Medications Name Sig Start Date Stop Date Status Note LastModified by Organization Details LastModified Time carisoprodo l 350 mg tablet 02/13 completed Not Available Not Available Not Available quetiapine 25 mg tablet TAKE 1/2 -1 TAB DAILY NEEDED FOR ANXIETY active Not Available Not Available No t Available Mirena 21 mcg/24 hr (up to 8 years) 52 mg intrauterin e device Take by intrauter ine route. 04/26 completed Not Available Not Available Not Available hydrocodone 7.5 mg-ibuprofe n 200 mg tablet TK 1 T PO Q 4 TO 6 H PRF PAIN 02/05 completed Not Available Not Available Not Available azithromyci n 250 mg tablet TAKE 2 TABLETS BY MOUTH TODAY, THEN TAKE 1 TABLET DAILY FOR 4 DAYS active Not Available Not Available No t Available aspirin 325 mg tablet TAKE 1 TABLET BY MOUTH TWICE A DAY AFTER MEALS FOR 21 DAYS 04/20 completed Not Available Not Available Not Available fluconazole 150 mg tablet TAKE 1 TABLET BY MOUTH DIRECTED. TAKE 1 TABLET TODAY AND 1 TABLET IN 3 DAYS IF SYMPTOMS PERSIST. active Not Available Not Available No t Available ampicillin 500 mg capsule 02/05 completed Not Available Not Available Not Available cephalexin 250 mg capsule TAKE 1 CAPSULE BY MOUTH EVERYDAY AT BEDTIME 03/05 completed Not Available Not Available Not Available hydrocodone 5 mg-acetamin ophen 325 mg tablet TAKE 1 TABLET BY MOUTH EVERY 4 HOURS NEEDED 04/26 completed Not Available Not Available Not Available prazosin 1 mg capsule 04/20 completed Not Available Not Available Not Available prochlorper azine maleate 5 mg tablet 02/13 completed Not Available Not Available Not Available fluconazole 200 mg tablet TAKE 1 TABLET BY MOUTH TODAY, AND 1 TABLET IN 72 HOURS IF SYMPTOMS PERSIST 04/26 completed Not Available Not Available Not Available Tubersol 5 tub. unit/0.1 mL intradermal injection solution Inject 0.1 mL by intraderm al route. 02/03 completed [facility]: [address] -78 Not Available Not Available Not Available clonazepam 0.5 mg tablet TAKE 1 TABLET BY MOUTH EVERY DAY NEEDED 04/26 completed Not Available Not Available Not Available quetiapine 200 mg tablet TAKE 1 TABLET BY MOUTH EVERYDAY AT BEDTIME active Not Available Not Available No t Available terconazole 0.8 % vaginal cream 04/20 completed Not Available Not Available Not Available penicillin V potassium 500 mg tablet TK 1 T PO QID TAT 02/05 completed Not Available Not Available Not Available metronidazo le 500 mg tablet 04/20 completed Not Available Not Available Not Available hydroxyzine HCl 50 mg tablet TAKE 1 TABLET BY MOUTH 4 TIMES A DAY NEEDED FOR ITCHING 04/20 completed Not Available Not Available Not Available acetaminoph en 300 mg-codeine 30 mg tablet 02/13 completed Not Available Not Available Not Available ciprofloxac in 500 mg tablet TAKE 1 TABLET BY MOUTH TWICE A DAY FOR 5 DAYS 04/26 completed Not Available Not Available Not Available sulfamethox azole 800 mg-trimetho prim 160 mg tablet 04/20 completed Not Available Not Available Not Available tramadol 50 mg tablet TAKE 1 TABLET BY MOUTH ONCE EVERY 8 HOURS NEEDED FOR PAIN 02/06 completed Not Available Not Available Not Available quetiapine 100 mg tablet TAKE 1 TABLET BY MOUTH EVERY DAY 04/26 completed Not Available Not Available Not Available phentermine 30 mg capsule TAKE 1 CAPSULE BY MOUTH EVERY DAY 04/26 completed Not Available Not Available Not Available lamotrigine 25 mg tablet TAKE 1 TABLET DAILY FOR 14 DAYS, THEN 2 TABLETS DAILY 04/26 completed Not Available Not Available Not Available ketorolac 10 mg tablet 04/20 completed Not Available Not Available Not Available oxycodone-a cetaminophe n 5 mg-325 mg tablet 04/20 completed Not Available Not Available Not Available alprazolam 0.5 mg tablet take one tab po 30 min before testing. may repeat if needed active Not Available Not Available No t Available propranolol 10 mg tablet 02/06 completed Not Available Not Available Not Available alprazolam 0.25 mg tablet 02/13 completed Not Available Not Available Not Available citalopram 20 mg tablet 02/05 completed Not Available Not Available Not Available phenazopyri dine 100 mg tablet TAKE 1 TABLET BY MOUTH THREE TIMES DAILY 6 DOSES NEEDED FOR PAIN 03/05 completed Not Available Not Available Not Available hydrocodone 7.5 mg-acetamin ophen 325 mg tablet 04/20 completed Not Available Not Available Not Available cephalexin 500 mg capsule TAKE 1 CAPSULE BY MOUTH EVERY 12 HOURS FOR 10 DAYS 03/04 completed Not Available Not Available Not Available erythromyci n 5 mg/gram (0.5 %) eye ointment APPLY 1 CM RIBBON INTO THE LOWER CONJUNCTI BERT SAC(S) IN THE AFFECTED EYE(S) 3 TIMES PER DAY 03/04 completed Not Available Not Available Not Available clotrimazol e-betametha sone 1 %-0.05 % topical cream 02/05 completed Not Available Not Available Not Available promethazin e 25 mg tablet TAKE 1 TABLET BY MOUTH EVERY 6 HOURS NEEDED FOR NAUSEA AND VOMITING 02/06 completed Not Available Not Available Not Available bupropion HCl 75 mg tablet 04/20 completed Not Available Not Available Not Available gabapentin 300 mg capsule TAKE 1 CAPSULE BY MOUTH THREE TIMES A DAY 02/06 completed Not Available Not Available Not Available furosemide 20 mg tablet TAKE 1 TABLET BY MOUTH EVERY OTHER DAY FOR 3 DOSES 02/06 completed Not Available Not Available Not Available ergocalcife rol (vitamin D2) 1,250 mcg (50,000 unit) capsule TAKE 1 CAPSULE EVERY WEEK BY ORAL ROUTE. 04/26 completed Not Available Not Available Not Available cefuroxime axetil 500 mg tablet 02/05 completed Not Available Not Available Not Available levofloxaci n 500 mg tablet TAKE 1 TABLET BY MOUTH EVERY DAY *DO NOT TAKE WITH FLUCONAZO LE 04/26 completed Not Available Not Available Not Available oxycodone-a cetaminophe n 7.5 mg-325 mg tablet 04/20 completed Not Available Not Available Not Available methylpredn isolone 4 mg tablets in a dose pack TAKE 6 TABLETS ON DAY 1 DIRECTED ON PACKAGE AND DECREASE BY 1 TAB EACH DAY FOR A TOTAL OF 6 DAYS 07/10 completed Not Available Not Available Not Available cefdinir 300 mg capsule TAKE 1 CAPSULE BY MOUTH EVERY 12 HOURS. CALL IF SYMPTOMS PERSISTS active Not Available Not Available No t Available escitalopra m 10 mg tablet TAKE 1 TABLET BY MOUTH EVERY DAY 02/06 completed Not Available Not Available Not Available cyclobenzap rine 5 mg tablet 04/20 completed Not Available Not Available Not Available bupropion HCl XL 300 mg 24 hr tablet, extended release Take 1 tablet every day by oral route for 30 days. 04/20 completed Not Available Not Available Not Available bupropion HCl XL 150 mg 24 hr tablet, extended release 02/05 completed Not Available Not Available Not Available escitalopra m 5 mg tablet TAKE 1 TABLET BY MOUTH EVERY DAY 02/03 completed Not Available Not Available Not Available topiramate 50 mg tablet 04/20 completed Not Available Not Available Not Available nitrofurant oin monohydrate /macrocryst als 100 mg capsule 02/05 completed Not Available Not Available Not Available duloxetine 30 mg capsule,del ayed release TAKE 1 CAPSULE BY MOUTH EVERY DAY AT BEDTIME FOR 90 DAYS active Not Available Not Available No t Available duloxetine 60 mg capsule,del ayed release TAKE 1 CAPSULE BY MOUTH EVERY DAY 04/26 completed Not Available Not Available Not Available Nucynta 100 mg tablet TAKE 1 (ONE) TABLET BY MOUTH EVERY 6 HOURS NEEDED FOR PAIN REASONS CHRONIC PAIN 04/26 completed Not Available Not Available Not Available Nucynta 75 mg tablet TAKE 1 TABLET BY MOUTH EVERY 6 HOURS NEEDED FOR PAIN 02/06 completed Not Available Not Available Not Available desoximetas one 0.05 % topical ointment 04/20 completed Not Available Not Available Not Available Linzess 145 mcg capsule Take 1 capsule every day by oral route as directed. active Not Available Not Available No t Available Saxenda 3 mg/0.5 mL (18 mg/3 mL) subcutaneou s pen injector week 1: inject 0.6mg SQ dailyweek 2: inject 1.2mg SQ dailyweek 3: inject 1.8mg SQ dailyweek 4: inject 2.4mg SQ dailyweek 5 and after : inject 3mg SQ daily 11/15 completed Not Available Not Available Not Available Evzio 2 mg/0.4 mL injection,a uto-injecto r INJECT ONE 0.4ML INJECTION INTO OUTER THIGH NEEDED FOR SUSPECTED OPIOID OVERDOSE. CALL 911. 04/20 completed Not Available Not Available Not Available Mounjaro 7.5 mg/0.5 mL subcutaneou s pen injector INJECT 7.5 MG EVERY WEEK BY SUBCUTANE OUS ROUTE DIRECTED. 09/03 completed Not Available Not Available Not Available Mounjaro 5 mg/0.5 mL subcutaneou s pen injector INJECT THE CONTENTS OF 1 PEN UNDER THE SKIN ONCE EVERY WEEK DIRECTED 03/05 completed Not Available Not Available Not Available Mounjaro 15 mg/0.5 mL subcutaneou s pen injector INJECT THE CONTENTS OF 1 PEN UNDER THE SKIN ONCE WEEKLY active Not Available Not Available No t Available Mounjaro 10 mg/0.5 mL subcutaneou s pen injector INJECT 10 MG EVERY WEEK BY SUBCUTANE OUS ROUTE DIRECTED. 06/28 completed Not Available Not Available Not Available Mounjaro 12.5 mg/0.5 mL subcutaneou s pen injector Inject 12.5 mg every week by subcutane ous route as directed. 11/15 completed Not Available Not Available Not Available Mounjaro 2.5 mg/0.5 mL subcutaneou s pen injector INJECT THE CONTENTS OF 1 PEN UNDER THE SKIN ONCE WEEKLY DIRECTED 08/06 completed Not Available Not Available Not Available Zepbound 12.5 mg/0.5 mL subcutaneou s pen injector Inject 12.5 mg every week by subcutane ous route as directed. 2023 active Not Available Not Available Not Avai lable Vitals Date Recorded Body mass index (BMI) Body height Pain severity - 0-10 verbal numeric rating [Score] - Reported Body weight Provider Name and Address Organization Details Last Updated DateTime 03/01/2021 37.3 kg/m2 165.1 cm 2 776003.69 g Not Available [facility] 11/21/2022 18:52:28 Date Recorded Body height Body temperature Body mass index (BMI) Body weight Respiratory rate Heart rate Oxygen saturation Oxygen saturation in Arterial blood by Pulse oximetry Systolic And Diastolic Provider Name and Address Organization Details Last Updated DateTime 3 165.1 cm 97.8 [degF] 33.1 kg/m2 22968.8 8 g 16 /min 88 /min 96 % 96 % 114/72 mm[Hg] RAQUEL Hackett [place] - [facility] 3 15:21:48 Date Recorded Body mass index (BMI) Body height Oxygen saturation Oxygen saturation in Arterial blood by Pulse oximetry Heart rate Body temperature Body weight Systolic And Diastolic Provider Name and Address Organization Details Last Updated DateTime 2 41.8 kg/m2 165.1 cm 98 % 98 % 86 /min 97.2 [degF] 590735. 68 g 122/70 mm[Hg] Not Available [facility] 3 18:52:26 Date Recorded Body height Provider Name an d Address Organization Details Last Updated DateTime 07/11/2022 165.1 cm Not Available [facility] 3 18:52:27 Date Recorded Body mass index (BMI) Body height Oxygen saturation Oxygen saturation in Arterial blood by Pulse oximetry Heart rate Body temperature Body weight Systolic And Diastolic Provider Name and Address Organization Details Last Updated DateTime 2 39.4 kg/m2 165.1 cm 100 % 100 % 102 /min 97.6 [degF] 386419. 39 g 120/68 mm[Hg] Not Available [facility] 3 18:52:26 Social History Question Answer Notes LastModified by Organizat ion Details LastModified Time Tobacco Smoking Status Never Smoker Not Available [facility] 11/21/2022 18:52:05 What Is Your Level Of Caffeine Consumption? Moderate [id number] Information not available 11/21/2022 How Much Tobacco Do You Chew? None MIGRATION.[id number] Information not available 11/21/2022 In The 14 Days Before Symptom Onset, Have You Had Close Contact With A Laboratory-confirm ed COVID-19 While That Case Was Ill? No [id number] Information not available 11/21/2022 In The 14 Days Before Symptom Onset, Have You Had Close Contact With A Person Who Is Under Investigation For COVID-19 While That Person Was Ill? No MIGRATION.[id number] 1038 Information not available 11/21/2022 What Type Of Diet Are You Following? REGULAR MIGRATION.[id number] Information not available 11/21/2022 Which Illicit Or Recreational Drugs Have You Used? None MIGRATION.[id number] Information not available 11/21/2022 Have There Been Any Changes To Your Family Or Social Situation? No MIGRATION.551256 7052 Information not available 11/21/2022 Do You Use Insect Repellent Routinely? No MIGRATION.153346 9314 Information not available 11/21/2022 What Is Your Relationship Status? MIGRATION.[id number] 5910 Information not available 11/21/2022 Do You Have Smoke And Carbon Monoxide Detectors In Your Home? Yes MIGRATION.507668 9679 Information not available 11/21/2022 How Much Tobacco Do You Smoke? No MIGRATION.188348 3075 Information not available 11/21/2022 Do You Use Sunscreen Routinely? Yes MIGRATION.717518 5440 Information not available 11/21/2022 Have You Recently Traveled Abroad? No MIGRATION.407431 6281 Information not available 11/21/2022 Do You Have Any Dietary Restrictions? No MIGRATION.714819 8949 Information not available 11/21/2022 Sex: Unknown Functional Status Question Answer Note LastModified by Organizat ion Details LastModified Time Do you use any illicit or recreational drugs? No MIGRATION.[id number] Information not available 11/21/2022 Do you or have you ever used any other forms of tobacco or nicotine? No MIGRATION.180787 6449 Information not available 11/21/2022 What is your level of alcohol consumption? Occasional MIGRATION.560532 5730 Information not available 11/21/2022 Do you or have you ever used smokeless tobacco? Never used smokeless tobacco MIGRATION.275128 4633 Information not available 11/21/2022 Do you or have you ever used e-cigarettes or vape? Never used electronic cigarettes MIGRATION.344846 2105 Information not available 11/21/2022 What is your exercise level? Moderate MIGRATION.250471 1679 Information not available 11/21/2022 Mental Status None recorded. Family History Relationship Description Onset Age of this Age Resolved Age Notes LastModified by Organization Details LastModified Time Father Malignant neoplastic disease 54 [id number] Not available 11/21/2022 18:52:09 Maternal Grandmother Malignant tumor of breast [id number] Not available 11/21/2022 18:52:09 Maternal Grandmother Kidney disease [id number] Not available 11/21/2022 18:52:09 Medical History Condition Response EYE PROBLEMS Y URINARY/BLADDER/KIDNEY PROBLEMS Y ANXIETY DISORDER Y Gynecological History Statement/Question Response Abnormal Pap Y Date of Last Colonoscopy Most Recent Bone Density Date of LMP Sexually Active? Y Menses Monthly N Date of Last Pap 01/21/2019 Current Control Method IUD Obstetrics History GPAL:G 2 P 0 0 0 2 Type Value Living 2 Total 2 Immunizations Vaccine Type Date Status Note Provider Nam e and Address Organization Details Recorded Time Influenza, split virus, quadrivalent, PF 07/06/2019 completed Not Available [facility] 18:54:56 Past Encounters Encounter ID Performer Location Encounter Start Date Encounter Closed Date Diagnosis/Indication Diagnosis SNOMED-CT Code Diagnosis ICD10 Code Diagnosis IMO Codes Diagnosis Note [id number] ALEKSANDR Carpenter [facility] [place] [address] [facility] [address] [place] [address] 02/06/2021 00:00:00 02/07/2021 11:18:49 [id number] Bonifacio Chan MD [facility] [address] [address] 02/08/2021 00:00:00 02/08/2021 16:03:33 [id number] Bonifacio Chan MD [facility] [address] [address] 03/01/2021 00:00:00 03/01/2021 16:50:52 [id number] Mario Vincent MD [facility] [place] [address] [address], [address] [place] [address] [place] [address] 04/26/2022 00:00:00 05/01/2022 12:10:50 [id number] ALEKSANDR Carpenter [facility] [place] [address] [facility] [address] [place] [address] 07/11/2022 00:00:00 07/21/2022 20:25:28 [id number] ALEKSANDR Carpenter [facility] [place] [address] [facility] [address] [place] [address] 08/24/2022 00:00:00 09/21/2022 16:50:28 [id number] ALEKSANDR Carpenter [facility] [place] [address] [facility] [address] [place] [address] 03/05/2023 14:54:46 03/05/2023 15:54:31 Adult health examination 041931910 Z00.00 annual wellness completed Body mass index 30+ - obesity 984318620 Z68.39 pt has had great weight loss with mounjaro over several months. Generalize d anxiety disorder 75351968 F41.1 stable on medication s from psychiatry Chronic id iopathic constipation 43391143 K59.04 long hx of constipati on. samples of linzess given today. Health Concerns Section Related Observation LastModified by Organization Detai ls LastModified Time None Recorded Concern Status LastModified by Organization Details LastModified Time None Recorded Advance Directives Directive None Recorded Payers Insurance Date Sequence Insurance Name Policy Number Policy Farrell Covered Member ID Farrell Member ID Guarantor Name 11/05/2023 [facility] Ting Fitzpatrick SELF SELF Ting Fitzpatrick 05/21/2024 1 [facility] [employer] & [facility] - OPEN ACCESS PLUS [id number] Marcus Fitzpatrick [id number] Ting Fitzpatrick Notes Date Note Type Note Provider Name and Address Organization Details Recorded Time 03/05/2023 text/html Anxiety/Depressi onRep orted by PatientHPIFor severity, patient reportsdenies suicidal ideations,able to maintain relationships, anddoes not interfere with activities of daily living. For duration, patient reportssymptoms lasting over 2 weeks. For context, patient reportsno major life stressors. For associated symptoms, patient reportsdenies homicidal ideations,no significant weight gain,no significant weight loss,no visual/auditory hallucinations,no delusions, andno shortness of breath. For onset/timing, (stable). For modifying factors, (rx). Wellness ALEKSANDR Carpenter [address] [address], [place], [address], [place] - [facility] [employer] 03/20/2023 23:49:32 OBGyn Episode No OBEpisode recorded.
--- OUTSIDE RECORDS SUMMARY | 2025-06-21 17:07 | XMS_ITS | Clinical Summary ---
Author Organization [facility] Address [address] [place] [address] Care Team Providers Care Oyster Shucker Name Role Phone Unavailable Primary Care Provider Unavailabl e Allergies No known active allergies Medications tirzepatide, weight loss, (Zepbound) 15 mg/0.5 mL Pen Injector Inject 15 mg by subcutaneous injection every 7 days. 2 mL 3 01/17/2024 4:57 PM CDT 4 Active tirzepatide, weight loss, (Zepbound) 15 mg/0.5 mL Pen Injector Inject 15 mg by subcutaneous injection every 7 days. 2 mL 1 06/29/2024 4:19 PM CDT 4 Active tirzepatide, weight loss, (Zepbound) 15 mg/0.5 mL Pen Injector Inject 15 mg every week by subcutaneous route. 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 2 mL 12/16/2024 6:00 PM CDT 5 Active tirzepatide, weight loss, (Zepbound) 15 mg/0.5 mL Pen Injector Inject 15 mg under the skin once weekly. 2 mL 2 04/14/2025 3:32 PM CDT 5 Active tirzepatide, weight loss, (Zepbound) 15 mg/0.5 mL Pen Injector Inject 0.5 mL (15 mg) by subcutaneous injection every 7 days. 2 mL 2 05/14/2025 9:15 AM CDT Active Encounters Date Type Department Care Team Description 05/11/2025 External Device Data [facility] Provider, Abstract 05/11/2025 External Device Data [facility] Provider, Abstract 04/27/2025 External Device Data [facility] Provider, Abstract 04/07/2025 External Device Data [facility] Provider, Abstract 04/06/2025 External Device Data [facility] Provider, Abstract from Last 3 Months Social History Tobacco Use Types Packs/Day Years Used Date Smoking Tobacco: Never Assessed Comments Unknown Sex and Gender Information Value Date Recorded Sex Assigned at Not on file Legal Sex Female 2:08 PM CDT Gender Identity Not on file Sexual Orientation Not on file Plan of Treatment Health Maintenance Due Date Last Done Comments DTAP/TDAP/TD VACCINES (1 - Tdap) 01/05/2008 HEPATITIS B VACCINES (1 of 3 - 19+ 3-dose series) 12/22 HPV/Cotest (21-29) 2010 HPV VACCINES (1 - 3-dose SCDM series) 01/05/2016 CERVICAL CANCER SCREENING 2019 HPV/Cotest (30-65) 2019 PAP SMEAR 2019 INFLUENZA VACCINE (#1) 2025 Insurance RX [employer] Commercial [[id number] [employer] Commercial
--- OUTSIDE RECORDS SUMMARY | 2025-06-21 17:07 | XMS_ITS | Data Portability ---
Author Organization [facility] NEV[place] H Address [address] [facility] [place] [address] Care Team Providers Care Geoscience Specialist Name Role Phone DULCEBAMARTI Primary Care Provider UnavailJONATHAN Foley Wildlife Conservation Professor [phone] Assessment Encounter Date Assessment Date Assessment LastModified by Organization Details LastModified Time 2025 2025 hip xray left side no abnormality. lumbar spine xray with moderate facet arthropathy throughout the spine. Not available 01/24/2025 11:46:45 Plan of Treatment Reminders Order Date Submit Date Provider Last Modified By Organization Details Last Modified Time Details Appointments None recorded. Lab lipid panel, serum 2024 025 JUSTINA Chew, [address], [place], [address], 5 09:08:02 CMP, serum or plasma 2024 025 JUSTINA Chew, [address], [place], [address], 5 09:08:04 CBC w/ auto diff 2024 025 JUSTINA Chew, [address], [place], [address], 5 09:08:07 vitamin B12 + folate, serum or blood 2024 025 JUSTINA Chew, [address], [place], [address], 5 09:08:05 HbA1c (hemoglobi n A1c), blood 2024 025 JUSTINA [facility], [address], [place], [address], 5 09:08:06 TSH + free T4, serum 2024 025 JUSTINA [facility], [address], [place], [address], 5 09:08:03 TSH + free T4, serum 2023 024 [email or web address] [facility], [address], [place], [address], 5 17:47:49 lipid panel, serum 2023 024 [email or web address] [facility], [address], [place], [address], 5 17:49:18 CMP, serum or plasma 2023 024 [email or web address] [facility], [address], [place], [address], 5 17:48:56 CBC w/ auto diff 2023 024 [email or web address] [facility], [address], [place], [address], 5 17:48:45 vitamin B12 + folate, serum or blood 2023 024 [facility], [address], [place], [address], 5 17:47:58 HbA1c (hemoglobi n A1c), blood 2023 024 [email or web address] [facility], [address], [place], [address], 5 17:49:07 SARS CoV 2 RNA (COVID-19) , QL, 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 Imaging XR, knee 2024 025 tami [facility], [address], [place], [address], 5 12:59:13 MRI, knee, w/o contrast 2024 025 [facility], [address], [place], [address], 5 04:27:08 XR, calcaneus, 2 or more view 2024 025 tami [facility], [address], [place], [address], 5 12:59:13 XR, hip, unilateral , 2 or 3 view 2023 024 [email or web address], [address], [place], [address], 12:22:23 XR, lumbosacra l spine, 2 or 3 view 2023 024 [email or web address] [facility], [address], [place], [address], 17:47:30 Medication Orders Linzess 290 mcg capsule 2024 025 [id number], [address], [place], [address], 5 14:58:57 meloxicam 15 mg tablet 2024 025 [facility] #[id number], [address], [place], [address], 5 14:54:22 omeprazole 40 mg capsule,de layed release 2024 025 [email or web address] [facility] #[id number], [address], [place], [address], 5 14:24:01 famotidine 40 mg tablet 2023 025 [facility] #[id number], [address], [place], [address], 5 17:11:40 Linzess 145 mcg capsule 2023 025 [facility] #[id number], [address], [place], [address], 14:58:43 Patient TargetsNo targets recorded. Patient Instructions Encounter Date Encounter Id Patient Instructions Last Modified By Organization Details Last Modified Time 04/27/2020 [id number] Reviewed the following recommendations: -Stay home and separate from others as much as possible. -Monitor your symptoms and seek medical attention for trouble breathing, persistent chest pain, confusion, or bluish lips or face. -Wear a mask if you must be around other people. -Wash your hands often for 20 seconds with soap and water and clean high-touch surfaces daily -You may discontinue home isolation if your symptoms are improving and it has been 10 days since symptoms started. D/w pt the current pandemic of COVID-19 and call for social isolation in order to blunt the curve and minimize risk and spread. Encouraged patient and family to take restrictions seriously. They have verbalized understanding of such. [email or web address] Not available 04/27/2020 10:40:35 05/21/2024 [id number] A healthy lifestyle: care instructions Not available 05/21/2024 10:03:43 2025 [id number] A healthy lifestyle: care instructions Not available 2025 17:34:11 04/09/2025 [id number] A healthy lifestyle: care instructions Not available 04/09/2025 14:54:21 Reason for Referral Orthopedic Surgeon Referral for Pain of left hip joint Referring Physician: aMrti Lennon, Internal Medicine, Encounter Date: 05/21/2024 Orthopedic Surgeon Referral for Pain of left hip joint Referring Physician: Marti Lennon, Internal Medicine, Encounter Date: 2025 Results Created Date Observation Date Name Description Value Unit Range Abnormal Flag Note LastModifiedBy Organization Detail LastModifiedTime 04/27/20 20 04/27/2020 SARS CoV 2 RNA (COVI D-19) , QL, 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 A negat aundrea resul t does not precl ude the possi bilit y of 2019- nCoV infec tion since the adequ acy of sampl e colle ction and/o r low viral burde n may resul t in the prese nce of viral nucle ic acids level s below the aida tical sensi tivit y of this test metho d. Not Available [facility] (Lab) [address] [place], [address], 04/29/2020 16:26:43 04/27/20 20 04/27/2020 SARS CoV 2 RNA (COVI D-19) , QL, typing element machine operator-P CR, respi rator y speci men covidcom2 Posit aundrea resul ts are indic ative of the prese nce of SARS- CoV-2 RNA and do not rule out bacte rial infec tion or co-in fecti on with other virus es. Not Available [facility] (Lab) [address], [place], [address], 04/29/2020 16:26:43 04/27/20 20 04/27/2020 SARS CoV 2 RNA (COVI D-19) , QL, typing element machine operator-P CR, respi rator y speci men covidcom3 Test resul ts shoul d be used along with other clini kevin obser vatio ns, patie nt histo ry, epide miolo gical infor matio n and labor atory data in moo g the diagn osis. Not Available [facility] (Lab) [address] [place], [address], 04/29/2020 16:26:43 04/27/20 20 04/27/2020 SARS CoV 2 RNA (COVI D-19) , QL, typing element machine operator-P CR, respi rator y speci men covidcom4 This test has recei pallavi [facility] Emerg ency Use Autho rizat ion and has been verif ied by [facility] [employer] . This test is only autho rized for the durat ion of the decla ratio n and the circu mstan kriss that exist to justi fy the autho rizat ion of the emerg ency use of in vitro diagn ostic tests for the detec tion of SARS- CoV-2 virus and/o r diagn osis of COVID -19 infec tion under secti on 564 (b) (1) of the Act. 11 U.S.C . 360bb b-3 (b) (1), unles s the autho rizat ion is termi nated or revok ed soone r. Not Available [facility] (Lab) [address] [place], [address], 04/29/2020 16:26:43 04/27/20 20 04/27/2020 SARS CoV 2 RNA (COVI D-19) , QL, typing element machine operator-P CR, respi rator y speci men covidcom5 [facility] uShipreynaldo is certi fied under CLIA- 88 as quali fied to perfo rm high compl exity testi ng. This testi ng was perfo rmed in the [facility] [employer] [place] [place] [address] (CLIA Licen se #[id number] 5, CAP #[id number], AU-ID #[id number]). Not Available [facility] (Lab) [address] [place], [address], 04/29/2020 16:26:43 04/27/20 20 04/27/2020 SARS CoV 2 RNA (COVI D-19) , QL, typing element machine operator-P CR, respi rator y speci men covidcom6 Facts heet for healt hcare provi ders: https ://ww w.Circa .gov/ media /6994 56/do wnloa d Facts heet for patie nts: https ://ww w.Circa .gov/ media /1362 57/do wnloa d Not Available [facility] (Lab) [address] [place], [address], 04/29/2020 16:26:43 07/27/20 22 07/30/2022 Free T4 and TSH panel - Serum or Plasm a thyrotropin [units/volum e] in serum or plasma TSH Not Available Not Available 03:24:43 07/27/20 22 07/30/2022 Free T4 and TSH panel - Serum or Plasm a thyroxine (T4) free [mass/volume ] in serum or plasma T4, free Not Available Not Available 12/03/2024 03:24:43 07/27/20 22 07/30/2022 Lipid 1996 panel - Serum or Plasm a cholesterol [mass/volume ] in serum or plasma palmira stero l, total Not Available Not Available 12/03/2024 03:24:43 07/27/20 22 07/30/2022 Lipid 1996 panel - Serum or Plasm a cholesterol in HDL [mass/volume ] in serum or plasma low HDL palmira stero l Not Available Not Available 12/03/2024 03:24:43 07/27/20 22 07/30/2022 Lipid 1996 panel - Serum or Plasm a triglyceride [mass/volume ] in serum or plasma trigl yceri hua Not Available Not Available 12/03/2024 03:24:43 07/27/20 22 07/30/2022 Lipid 1996 panel - Serum or Plasm a cholesterol in LDL [mass/volume ] in serum or plasma by calculation LDL-c holes terol Not Available Not Available 12/03/2024 03:24:43 07/27/20 22 07/30/2022 Lipid 1996 panel - Serum or Plasm a cholesterol. total/choles terol in HDL [mass ratio] in serum or plasma chol/ HDLC ratio Not Available Not Available 12/03/2024 03:24:43 07/27/20 22 07/30/2022 Lipid 1996 panel - Serum or Plasm a cholesterol in LDL/choleste rol in HDL [mass ratio] in serum or plasma LDL/H DL ratio Not Available Not Available 12/03/2024 03:24:43 07/27/20 22 07/30/2022 Lipid 1996 panel - Serum or Plasm a cholesterol non HDL [mass/volume ] in serum or plasma non HDL palmira stero l Not Available Not Available 12/03/2024 03:24:43 07/27/20 22 07/30/2022 Compr [employer] aundrea MarkTend olic 1999 panel - Serum or Plasm a glucose [mass/volume ] in serum or plasma gluco se Not Available Not Available 12/03/2024 03:24:43 07/27/20 22 07/30/2022 Compr [employer] Services[employer] aundrea metab olic 1999 panel - Serum or Plasm a urea nitrogen [mass/volume ] in serum or plasma urea nitro gen (BUN) Not Available Not Available 12/03/2024 03:24:43 07/27/20 22 07/30/2022 Compr [employer] aundrea metab olic 1999 panel - Serum or Plasm a creatinine [mass/volume ] in serum or plasma high creat inine Not Available Not Available 12/03/2024 03:24:43 07/27/20 22 07/30/2022 Compr [employer] aundrea MarkTend olic 1999 panel - Serum or Plasm a glomerular filtration rate/1.73 sq M.predicted [volume rate/area] in serum, plasma or blood by creatinine-b ased formula (CKD-epi 2020) low eGFR Not Available Not Available 11/21 03:24:43 07/27/20 22 07/30/2022 Compr [employer] aundrea MarkTend olic 1999 panel - Serum or Plasm a urea nitrogen/cre atinine [mass ratio] in serum or plasma BUN/c reati nine ratio Not Available Not Available 12/03/2024 03:24:43 07/27/20 22 07/30/2022 Compr [employer] aundrea MarkTend olic 1999 panel - Serum or Plasm a sodium [moles/volum e] in serum or plasma sodiu m Not Available Not Available 12/03/2024 03:24:43 07/27/20 22 07/30/2022 Compr [employer] aundrea MarkTend olic 2000 panel - Serum or Plasm a potassium [moles/volum e] in serum or plasma potas sium Not Available Not Available 12/03/2024 03:24:43 07/27/20 22 07/30/2022 Compr [employer] aundrea MarkTend olic 1999 panel - Serum or Plasm a chloride [moles/volum e] in serum or plasma chlor laura Not Available Not Available 12/03/2024 03:24:43 07/27/20 22 07/30/2022 Compr [employer] aundrea MarkTend olic 1999 panel - Serum or Plasm a carbon dioxide, total [moles/volum e] in serum or plasma carbo n dioxi de Not Available Not Available 12/03/2024 03:24:43 07/27/20 22 07/30/2022 Compr [employer] aundrea MarkTend olic 1999 panel - Serum or Plasm a calcium [mass/volume ] in serum or plasma calci um Not Available Not Available 12/03/2024 03:24:43 07/27/20 22 07/30/2022 Compr [employer] aundrea MarkTend olic 1999 panel - Serum or Plasm a protein [mass/volume ] in serum or plasma prote in, total Not Available Not Available 12/03/2024 03:24:43 07/27/20 22 07/30/2022 Compr [employer] aundrea MarkTend olic 1999 panel - Serum or Plasm a albumin [mass/volume ] in serum or plasma album in Not Available Not Available 12/03/2024 03:24:43 07/27/20 22 07/30/2022 Compr [employer] aundrea MarkTend olic 1999 panel - Serum or Plasm a globulin [mass/volume ] in serum by calculation globu basil Not Available Not Available 12/03/2024 03:24:43 07/27/20 22 07/30/2022 Compr [employer] aundrea MarkTend olic 1999 panel - Serum or Plasm a albumin/glob ulin [mass ratio] in serum or plasma album in/gl obuli n ratio Not Available Not Available 12/03/2024 03:24:43 07/27/20 22 07/30/2022 Compr [employer] aundrea MarkTend olic 1999 panel - Serum or Plasm a bilirubin.to jono [mass/volume ] in serum or plasma bilir ubin, total Not Available Not Available 12/03/2024 03:24:43 07/27/20 22 07/30/2022 Compr [employer] aundrea MarkTend olic 1999 panel - Serum or Plasm a alkaline phosphatase [enzymatic activity/vol ume] in serum or plasma alkal ine phosp hatas e Not Available Not Available 12/03/2024 03:24:43 07/27/20 22 07/30/2022 Compr ehens aundrea metab olic 1999 panel - Serum or Plasm a aspartate aminotransfe rase [enzymatic activity/vol ume] in serum or plasma AST Not Available Not Available 11/21 03:24:43 07/27/20 22 07/30/2022 Compr ehens aundrea metab olic 1999 panel - Serum or Plasm a alanine aminotransfe rase [enzymatic activity/vol ume] in serum or plasma ALT Not Available Not Available 11/21 03:24:43 07/27/20 22 07/30/2022 Hemog lobin A1c/H emogl obin. total in Blood hemoglobin A1C/hemoglob in.total in blood hemog lobin A1C Not Available Not Available 12/03/2024 03:24:43 07/27/20 22 07/30/2022 Triio dothy dane e (T3) Free [Mass /volu me] in Serum or Plasm a triiodothyro nine (T3) free [mass/volume ] in serum or plasma T3, free Not Available Not Available 12/03/2024 03:24:43 07/27/20 22 07/30/2022 CBC W Auto Diffe renti al panel - Blood leukocytes [#/volume] in blood by automated count white blood cell count Not Available Not Available 12/03/2024 03:24:43 07/27/20 22 07/30/2022 CBC W Auto Diffe renti al panel - Blood erythrocytes [#/volume] in blood by automated count red blood cell count Not Available Not Available 12/03/2024 03:24:43 07/27/20 22 07/30/2022 CBC W Auto Diffe renti al panel - Blood hemoglobin [mass/volume ] in blood low hemog lobin Not Available Not Available 12/03/2024 03:24:43 07/27/20 22 07/30/2022 CBC W Auto Diffe renti al panel - Blood hematocrit [volume fraction] of blood by automated count low hemat ocrit Not Available Not Available 12/03/2024 03:24:43 07/27/20 22 07/30/2022 CBC W Auto Diffe renti al panel - Blood MCV [entitic volume] by automated count MCV Not Available Not Available 11/21 03:24:43 07/27/20 22 07/30/2022 CBC W Auto Diffe renti al panel - Blood MCH [entitic mass] by automated count MCH Not Available Not Available 11/21 03:24:43 07/27/20 22 07/30/2022 CBC W Auto Diffe renti al panel - Blood MCHC [mass/volume ] by automated count MCHC Not Available Not Available 11/21 03:24:43 07/27/20 22 07/30/2022 CBC W Auto Diffe renti al panel - Blood erythrocyte distribution width [ratio] by automated count RDW Not Available Not Available 11/21 03:24:43 07/27/20 22 07/30/2022 CBC W Auto Diffe renti al panel - Blood platelets [#/volume] in blood by automated count plate let count Not Available Not Available 12/03/2024 03:24:43 07/27/20 22 07/30/2022 CBC W Auto Diffe renti al panel - Blood platelet mean volume [entitic volume] in blood by aileen MPV Not Available Not Available 0 12/03/2024 03:24:43 07/27/20 22 07/30/2022 CBC W Auto Diffe renti al panel - Blood neutrophils [#/volume] in blood by automated count absol nikolai neutr ophil s Not Available Not Available 12/03/2024 03:24:43 07/27/20 22 07/30/2022 CBC W Auto Diffe renti al panel - Blood lymphocytes [#/volume] in blood by automated count absol nikolai lymph ocyte s Not Available Not Available 12/03/2024 03:24:43 07/27/20 22 07/30/2022 CBC W Auto Diffe renti al panel - Blood monocytes [#/volume] in blood by automated count absol nikolai monoc ytes Not Available Not Available 12/03/2024 03:24:43 07/27/20 22 07/30/2022 CBC W Auto Diffe renti al panel - Blood eosinophils [#/volume] in blood by automated count absol nikolai eosin ophil s Not Available Not Available 12/03/2024 03:24:43 07/27/20 22 07/30/2022 CBC W Auto Diffe renti al panel - Blood basophils [#/volume] in blood by automated count absol nikolai basop hils Not Available Not Available 12/03/2024 03:24:43 07/27/20 22 07/30/2022 CBC W Auto Diffe renti al panel - Blood neutrophils/ 100 leukocytes in blood by automated count neutr ophil s Not Available Not Available 12/03/2024 03:24:43 07/27/20 22 07/30/2022 CBC W Auto Diffe renti al panel - Blood lymphocytes/ 100 leukocytes in blood by automated count lymph ocyte s Not Available Not Available 12/03/2024 03:24:43 07/27/20 22 07/30/2022 CBC W Auto Diffe renti al panel - Blood monocytes/10 0 leukocytes in blood by automated count monoc ytes Not Available Not Available 12/03/2024 03:24:43 07/27/20 22 07/30/2022 CBC W Auto Diffe renti al panel - Blood eosinophils/ 100 leukocytes in blood by automated count eosin ophil s Not Available Not Available 12/03/2024 03:24:43 07/27/20 22 07/30/2022 CBC W Auto Diffe renti al panel - Blood basophils/10 0 leukocytes in blood by automated count basop hils Not Available Not Available 12/03/2024 03:24:43 07/27/20 22 07/30/2022 Folat e+Cya nocob radha n [Inte rpret ation ] in Serum or Blood cobalamin (vitamin B12) [mass/volume ] in serum or plasma vitam in B12 Not Available Not Available 12/03/2024 03:24:42 07/27/20 22 07/30/2022 Folat e+Cya nocob radha n [Inte rpret ation ] in Serum or Blood folate [mass/volume ] in serum or plasma low folat e, serum Not Available Not Available 12/03/2024 03:24:42 07/27/20 22 07/30/2022 Insul in [Unit s/vol ume] in Serum or Plasm a insulin [units/volum e] in serum or plasma insul in Not Available Not Available 12/03/2024 03:24:42 01/10/20 25 01/10/2025 LIPID PANEL W/ CHOL/ HDL RATIO cholesterol, total 157 mg/dL 100-19 9 Not Available [facility] ([facility]) [address] [place], [address], 01/10/2025 09:08:02 01/10/20 25 01/10/2025 LIPID PANEL W/ CHOL/ HDL RATIO triglyceride s 132 mg/dL 0-149 Not Available [facility] ([facility]) [address] [place], [address], 01/10/2025 09:08:02 01/10/20 25 01/10/2025 LIPID PANEL W/ CHOL/ HDL RATIO HDL cholesterol 32 mg/dL >39 below low normal Not Available [facility] ([facility]) [address] [place], [address], 01/10/2025 09:08:02 01/10/20 25 01/10/2025 LIPID PANEL W/ CHOL/ HDL RATIO VLDL cholesterol kevin 24 mg/dL 5-40 Not Available [facility] ([facility]) [address] [place], [address], 01/10/2025 09:08:02 01/10/20 25 01/10/2025 LIPID PANEL W/ CHOL/ HDL RATIO LDL chol calc ([facility]) 101 mg/dL 0-99 above high normal Not Available [facility] ([facility]) [address] [place], [address], 01/10/2025 09:08:02 01/10/20 25 01/10/2025 LIPID PANEL W/ CHOL/ HDL RATIO T. chol/HDL ratio 4.9 ratio 0.0-4. 4 above high normal T. Chol/ HDL Ratio Men Women 1/2 Avg.R isk 3.4 3.3 Avg.R isk 5.0 4.4 2X Avg.R isk 9.6 7.1 3X Avg.R isk 23.4 11.0 Not Available [facility] ([facility]) [address] [place], [address], 01/10/2025 09:08:02 01/10/20 25 01/10/2025 TSH+F REE T4 TSH 3.780 uIU/m L 0.450- 4.500 Not Available [facility] ([facility]) [address] [place], [address], 01/10/2025 09:08:03 01/10/20 25 01/10/2025 TSH+F REE T4 T4,free(dire ct) 1.14 NG/dL 0.82-1 .77 Not Available [facility] ([facility]) [address] [place], [address], 01/10/2025 09:08:03 01/10/20 25 01/10/2025 COMP. METAB OLIC PANEL (14) glucose 85 mg/dL 70-99 Not Available [facility] ([facility]) [address] [place], [address], 01/10/2025 09:08:04 01/10/20 25 01/10/2025 COMP. METAB OLIC PANEL (14) BUN 13 mg/dL 6-20 Not Available [facility] ([facility]) [address] [place], [address], 01/10/2025 09:08:04 01/10/20 25 01/10/2025 COMP. METAB OLIC PANEL (14) creatinine 1.02 mg/dL 0.57-1 .00 above high normal Not Available [facility] ([facility]) [address] [place], [address], 01/10/2025 09:08:04 01/10/20 25 01/10/2025 COMP. METAB OLIC PANEL (14) eGFR 73 mL/mi n/1.7 3 >59 Not Available [facility] ([facility]) [address] [place], [address], 01/10/2025 09:08:04 01/10/20 25 01/10/2025 COMP. METAB OLIC PANEL (14) BUN/creatini ne ratio 13 9-23 Not Available [facility] ([facility]) [address] [place], [address], 01/10/2025 09:08:04 01/10/20 25 01/10/2025 COMP. METAB OLIC PANEL (14) sodium 139 mmol/ L 134-14 4 Not Available [facility] ([facility]) [address] [place], [address], 01/10/2025 09:08:04 01/10/20 25 01/10/2025 COMP. METAB OLIC PANEL (14) potassium 4.1 mmol/ L 3.5-5. 2 Not Available [facility] ([facility]) [address] [place], [address], 01/10/2025 09:08:04 01/10/20 25 01/10/2025 COMP. METAB OLIC PANEL (14) chloride 102 mmol/ L 96-106 Not Available [facility] ([facility]) [address] [place], [address], 01/10/2025 09:08:04 01/10/20 25 01/10/2025 COMP. METAB OLIC PANEL (14) carbon dioxide, total 23 mmol/ L 20-29 Not Available [facility] ([facility]) [address] [place], [address], 01/10/2025 09:08:04 01/10/20 25 01/10/2025 COMP. METAB OLIC PANEL (14) calcium 9.4 mg/dL 8.7-10 .2 Not Available [facility] ([facility]) [address] [place], [address], 01/10/2025 09:08:04 01/10/20 25 01/10/2025 COMP. METAB OLIC PANEL (14) protein, total 7.1 g/dL 6.0-8. 5 Not Available [facility] ([facility]) [address] [place], [address], 01/10/2025 09:08:04 01/10/20 25 01/10/2025 COMP. METAB OLIC PANEL (14) albumin 4.2 g/dL 3.9-4. 9 Not Available [facility] ([facility]) [address] [place], [address], 01/10/2025 09:08:04 01/10/20 25 01/10/2025 COMP. METAB OLIC PANEL (14) globulin, total 2.9 g/dL 1.5-4. 5 Not Available [facility] ([facility]) [address] [place], [address], 01/10/2025 09:08:04 01/10/20 25 01/10/2025 COMP. METAB OLIC PANEL (14) bilirubin, total 0.2 mg/dL 0.0-1. 2 Not Available [facility] ([facility]) [address] [place], [address], 01/10/2025 09:08:04 01/10/20 25 01/10/2025 COMP. METAB OLIC PANEL (14) alkaline phosphatase 103 IU/L 44-121 Not Available [facility] ([facility]) [address] [facility], [address], 01/10/2025 09:08:04 01/10/20 25 01/10/2025 COMP. METAB OLIC PANEL (14) AST (SGOT) 21 IU/L 0-40 Not Available [facility] ([facility]) [address] [facility] [place], [address], 01/10/2025 09:08:04 01/10/20 25 01/10/2025 COMP. METAB OLIC PANEL (14) ALT (SGPT) 18 IU/L 0-32 Not Available [facility] ([facility]) [address] [facility], [place], [address], 01/10/2025 09:08:04 01/10/20 25 01/10/2025 VITAM IN B12+F OLATE vitamin B12 451 pg/mL 232-12 45 Not Available [facility] ([facility]) [address] [facility], [place], [address], 01/10/2025 09:08:05 01/10/20 25 01/10/2025 VITAM IN B12+F OLATE folate (folic acid), serum 4.1 NG/mL >3.0 A serum folat e denice ntrat ion of less than 3.1 ng/mL is consi dered to repre sent clini kevin defic iency . Not Available [facility] ([facility]) [address] [facility], [place], [address], 01/10/2025 09:08:05 01/10/20 25 01/10/2025 HEMOG LOBIN A1C hemoglobin A1C 5.3 % 4.8-5. 6 Predi abete s: 5.7 - 6.4 Diabe jerome: >6.4 Glyce estella contr ol for adult s with diabe jerome: <7.0 Not Available [facility] ([facility]) [address] [facility], [place], [address], 01/10/2025 09:08:06 01/10/20 25 01/10/2025 CBC WITH DIFFE RENTI AL/PL ATELE T WBC 8.6 x10e3 /uL 3.4-10 .8 Not Available [facility] ([facility]) [address] [facility], [place], [address], 01/10/2025 09:08:07 01/10/20 25 01/10/2025 CBC WITH DIFFE RENTI AL/PL ATELE T RBC 4.36 x10e6 /uL 3.77-5 .28 Not Available [facility] ([facility]) [address] [facility], [place], [address], 01/10/2025 09:08:07 01/10/20 25 01/10/2025 CBC WITH DIFFE RENTI AL/PL ATELE T hemoglobin 12.8 g/dL 11.1-1 5.9 Not Available [facility] ([facility]) [address] [facility], [place], [address], 01/10/2025 09:08:07 01/10/20 25 01/10/2025 CBC WITH DIFFE RENTI AL/PL ATELE T hematocrit 38.9 % 34.0-4 6.6 Not Available [facility] ([facility]) [address] [place], [address], 01/10/2025 09:08:07 01/10/20 25 01/10/2025 CBC WITH DIFFE RENTI AL/PL ATELE T MCV 89 fL 79-97 Not Available [facility] ([facility]) [address] [facility], [place], [address], 01/10/2025 09:08:07 01/10/2001/10/2025 CBC WITH DIFFE RENTI AL/PL ATELE T MCH 29.4 pg 26.6-3 3.0 Not Available [facility] ([facility]) [address] [place], [address], 01/10/2025 09:08:07 01/10/2001/10/2025 CBC WITH DIFFE RENTI AL/PL ATELE T MCHC 32.9 g/dL 31.5-3 5.7 Not Available [facility] ([facility]) [address] [place], [address], 01/10/2025 09:08:07 01/10/2001/10/2025 CBC WITH DIFFE RENTI AL/PL ATELE T RDW 13.8 % 11.7-1 5.4 Not Available [facility] ([facility]) [address] [place], [address], 01/10/2025 09:08:07 01/10/20 25 01/10/2025 CBC WITH DIFFE RENTI AL/PL ATELE T platelets 289 x10e3 /uL 150-45 0 Not Available [facility] ([facility]) [address] [facility], [place], [address], 01/10/2025 09:08:07 01/10/20 25 01/10/2025 CBC WITH DIFFE RENTI AL/PL ATELE T neutrophils 54 % notest ab. Not Available [facility] ([facility]) [address] [facility], [place], [address], 01/10/2025 09:08:07 01/10/20 25 01/10/2025 CBC WITH DIFFE RENTI AL/PL ATELE T lymphs 37 % notest ab. Not Available [facility] ([facility]) [address] [facility], [place], [address], 01/10/2025 09:08:07 01/10/20 25 01/10/2025 CBC WITH DIFFE RENTI AL/PL ATELE T monocytes 7 % notest ab. Not Available [facility] ([facility]) [address] [facility], [place], [address], 01/10/2025 09:08:07 01/10/20 25 01/10/2025 CBC WITH DIFFE RENTI AL/PL ATELE T eos 2 % notest ab. Not Available [facility] ([facility]) [address] [facility], [place], [address], 01/10/2025 09:08:07 01/10/20 25 01/10/2025 CBC WITH DIFFE RENTI AL/PL ATELE T basos 0 % notest ab. Not Available [facility] ([facility]) [address] [facility], [place], [address], 01/10/2025 09:08:07 01/10/20 25 01/10/2025 CBC WITH DIFFE RENTI AL/PL ATELE T neutrophils (absolute) 4.6 x10e3 /uL 1.4-7. 0 Not Available [facility] ([facility]) [address] [facility], [place], [address], 01/10/2025 09:08:07 01/10/20 25 01/10/2025 CBC WITH DIFFE RENTI AL/PL ATELE T lymphs (absolute) 3.2 x10e3 /uL 0.7-3. 1 above high normal Not Available [facility] ([facility]) [address] [facility], [place], [address], 01/10/2025 09:08:07 01/10/20 25 01/10/2025 CBC WITH DIFFE RENTI AL/PL ATELE T monocytes(ab solute) 0.6 x10e3 /uL 0.1-0. 9 Not Available [facility] ([facility]) [address] [facility], [place], [address], 01/10/2025 09:08:07 01/10/20 25 01/10/2025 CBC WITH DIFFE RENTI AL/PL ATELE T eos (absolute) 0.2 x10e3 /uL 0.0-0. 4 Not Available [facility] ([facility]) [address] [facility], [place], [address], 01/10/2025 09:08:07 01/10/20 25 01/10/2025 CBC WITH DIFFE RENTI AL/PL ATELE T baso (absolute) 0.0 x10e3 /uL 0.0-0. 2 Not Available [facility] ([facility]) [address] [place], [address], 01/10/2025 09:08:07 01/10/20 25 01/10/2025 CBC WITH DIFFE RENTI AL/PL ATELE T immature granulocytes 0 % notest ab. Not Available [facility] ([facility]) [address] [place], [address], 01/10/2025 09:08:07 01/10/20 25 01/10/2025 CBC WITH DIFFE RENTI AL/PL ATELE T immature grans (abs) 0.0 x10e3 /uL 0.0-0. 1 Not Available [facility] ([facility]) [address] [facility], [place], [address], 01/10/2025 09:08:07 01/01/20 25 12/31/2024 XR, hip, unila teral , 2 or 3 view No observ ation record ed. [facility] [address], [place], [address], 2025 17:47:19 05/05/20 25 04/17/2025 home sleep testi ng (PROC ) No observ ation record ed. [facility] [address], [place], [address], 05/06/2025 16:30:59 Result Notes None recorded. Problems Name Problem SNOMED Code Status Onset Date Resolution Date Notes Provider Name and Address Organization Details Recorded Time Sprain of knee and leg Completed 201202/26/2013 Location : None;Sev erity: Moderate ;Progres s: Stable;A dded By: Maria Guadalupe Kraft;Add to Current Problems : NO Not Available [facility] 7 11:39:17 Body mass index 30+ - obesity 649072390 Active 2023 Celestino Shipman MA null, [place] - [facility] 4 09:36:26 Pain of left hip joint 06416925156 9100 Active 2023 ALEKSANDR Carpenter Attn: Accounting ,[address] [place], [address] , [facility] - [facility] 4 10:03:25 Irritabl e bowel syndrome characte rized by constipa tion 312192934 Active 2023 ALEKSANDR Carpenter Attn: Accounting ,[address], [place], [address] , [facility] - [facility] 4 10:03:28 Generali zed anxiety disorder 17160713 Active 2023 ALEKSANDR Carpenter Attn: Accounting ,[address] [place], [address] , [facility] - [facility] 4 10:03:29 Obesity 817017602 Active 2023 ALEKSANDR Carpenter Attn: Accounting ,[address] [place], [address] , [facility] - [facility] 4 10:03:33 Indigest ion 271107263 Active 2023 ALEKSANDR Carpenter Attn: Accounting ,[address] [place], [address] , [facility] - [facility] 4 09:52:26 Long-ter m drug therapy Active 2023 ALEKSANDR Carpenter Attn: Accounting ,[address] [place], [address] , [facility] - [facility] 4 09:52:37 Obese class II 45257253000 4105 Active 2024 ALEKSANDR Carpenter Attn: Accounting ,[address] [place], [address] , [facility] - [facility] 5 14:53:10 Sleep apnea 00781895 Active 2024 Maryan Oreilly RN null, [place] - [facility] 5 16:37:49 Problem Notes None recorded. Procedures Surgical History Date Name Laterality Status Provider Name and Address Organization Details Recorded Time hysterectomy completed Celestino Shipman MA [facility] 05/21/2024 09:40:43 section completed Celestino Shipman MA [facility] 05/21/2024 09:40:52 reconstruction of anterior cruciate ligament of knee joint completed Celestino Shipman MA [facility] 05/21/2024 09:40:57 repair of hip completed Celestino Shipman MA [facility] 05/21/2024 09:41:08 Breast augmentation w/implt completed Celestino Shipman MA [place] - [facility] 05/21/2024 09:41:28 Breast reduction completed Celestino Shipman MA [place] - [facility] 05/21/2024 09:41:34 laparoscopy completed Celestino Shipman MA [facility] 05/21/2024 09:41:40 Imaging Results None recorded. Procedure Notes None recorded. Medical Equipment None Reported. Allergies No known drug allergies Medications Name Sig Start Date Stop Date Status Note LastModified by Organization Details LastModified Time quetiapine 25 mg tablet TAKE 1/2 TO 1 TABLET BY MOUTH DAILY NEEDED active Not Available Not Available No t Available Mirena 21 mcg/24 hr (up to 8 years) 52 mg intrauterin e device 05/21 completed Not Available Not Available Not Available buspirone 5 mg tablet 05/21 completed Not Available Not Available Not Available clonidine HCl 0.1 mg tablet TAKE 1 TABLET BY MOUTH EVERY DAY AT BEDTIME FOR 30 DAYS 05/21 completed Not Available Not Available Not Available azithromyci n 250 mg tablet 05/20 completed Not Available Not Available Not Available fluconazole 150 mg tablet TAKE 1 TABLET BY MOUTH DIRECTED. TAKE 1 TABLET TODAY AND 1 TABLET IN 3 DAYS IF SYMPTOMS PERSIST. 05/20 completed Not Available Not Available Not Available valacyclovi r 1 gram tablet TAKE 2 TABLETS BY MOUTH EVERY 12 HOURS NEEDED FOR 1 DAY 2024 active Not Available Not Available Not Avai lable hydrocodone 5 mg-acetamin ophen 325 mg tablet 05/21 completed Not Available Not Available Not Available prochlorper azine maleate 5 mg tablet 05/21 completed Not Available Not Available Not Available fluconazole 200 mg tablet 05/21 completed Not Available Not Available Not Available meloxicam 15 mg tablet TAKE 1 TABLET BY MOUTH EVERY DAY active Not Available Not Available No t Available famotidine 40 mg tablet Take 1 tablet every day by oral route with meal(s). 01/04 completed Not Available Not Available Not Available clonazepam 0.5 mg tablet 05/21 completed Not Available Not Available Not Available quetiapine 200 mg tablet TAKE 1 TABLET BY MOUTH EVERY DAY AT BEDTIME FOR 30 DAYS MAKE APPOINTME NT FOR FURTHER REFILLS active Not Available Not Available No t Available valacyclovi r 500 mg tablet 05/21 completed Not Available Not Available Not Available ciprofloxac in 500 mg tablet 05/20 completed Not Available Not Available Not Available sulfamethox azole 800 mg-trimetho prim 160 mg tablet 05/20 completed Not Available Not Available Not Available omeprazole 40 mg capsule,del ayed release TAKE 1 CAPSULE BY MOUTH EVERY DAY active Not Available Not Available No t Available tramadol 50 mg tablet 05/21 completed Not Available Not Available Not Available quetiapine 100 mg tablet 05/21 completed Not Available Not Available Not Available propranolol 10 mg tablet 05/21 completed Not Available Not Available Not Available phenazopyri dine 100 mg tablet 05/21 completed Not Available Not Available Not Available cephalexin 500 mg capsule 05/20 completed Not Available Not Available Not Available promethazin e 25 mg tablet 05/21 completed Not Available Not Available Not Available polymyxin B sulfate 10,000 unit-trimet hoprim 1 mg/mL eye drops INSTILL 1 DROP INTO AFFECTED EYE(S) DIRECTED EVERY 3 HOURS FOR 7 DAYS WHILE AWAKE ONLY 05/20 completed Not Available Not Available Not Available gabapentin 300 mg capsule 05/21 completed Not Available Not Available Not Available levofloxaci n 500 mg tablet 05/20 completed Not Available Not Available Not Available cefdinir 300 mg capsule 1 (ONE) CAPSULE BY MOUTH EVERY TWELVE HOURS, CALL IF SYMPTOMS PERSIST 05/20 completed Not Available Not Available Not Available escitalopra m 10 mg tablet 05/21 completed Not Available Not Available Not Available escitalopra m 5 mg tablet 05/21 completed Not Available Not Available Not Available duloxetine 20 mg capsule,del ayed release TAKE 1 CAPSULE BY MOUTH ONCE A DAY AT BEDTIME. active Not Available Not Available No t Available duloxetine 30 mg capsule,del ayed release Take 1 capsule every day by oral route for 90 days. 04/09 completed Not Available Not Available Not Available duloxetine 60 mg capsule,del ayed release 05/21 completed Not Available Not Available Not Available Nucynta 100 mg tablet 05/21 completed Not Available Not Available Not Available Nucynta 75 mg tablet 08/29 /2024 completed Not Available Not Available Not Available Linzess 145 mcg capsule TAKE 1 CAPSULE BY MOUTH EVERY DAY 04/09 completed Not Available Not Available Not Available Linzess 290 mcg capsule Take 1 capsule every day by oral route. 2024 active Not Available Not Available Not Avai lable Mounjaro 15 mg/0.5 mL subcutaneou s pen injector INJECT THE CONTENTS OF 1 PEN UNDER THE SKIN ONCE WEEKLY 05/21 completed Not Available Not Available Not Available Zepbound 2.5 mg/0.5 mL subcutaneou s pen injector INJECT 2.5 MG SUBCUTANE OUSLY WEEKLY active Not Available Not Available No t Available Zepbound 15 mg/0.5 mL subcutaneou s pen injector Inject 15 mg every week by subcutane ous route. 2024 active Not Available Not Available Not Avai lable Zepbound 12.5 mg/0.5 mL subcutaneou s pen injector Inject 12.5 mg every week by subcutane ous route as directed. 10/27 completed Not Available Not Available Not Available Vitals Date Recorded Systolic And Diastolic Provider Name and Address Organization Details Last Updated DateTime 2025 110/70 mm[Hg] ALEKSANDR Carpenter Attn: Accounting,[address] [place], [address], [facility] 2025 17:34:52 Date Recorded Body height Body mass index (BMI) Body weight Respiratory rate Oxygen saturation Oxygen saturation in Arterial blood by Pulse oximetry Heart rate Systolic And Diastolic Provider Name and Address Organization Details Last Updated DateTime 5 165.1 cm 34.4 kg/m2 36274.6 2 g 18 /min 98 % 98 % 87 /min 108/72 mm[Hg] Celestino Shipman MA [facility] 17:14:29 Date Recorded Body height Body mass index (BMI) Body weight Oxygen saturation Oxygen saturation in Arterial blood by Pulse oximetry Heart rate Respiratory rate Systolic And Diastolic Provider Name and Address Organization Details Last Updated DateTime 165.1 cm 36.8 kg/m2 075096. 91 g 98 % 98 % 81 /min 20 /min 108/72 mm[Hg] Celestino Shipman MA [facility] 5 14:26:43 Date Recorded Systolic And Diastolic Provider Name and Address Organization Details Last Updated DateTime 05/21/2024 100/80 mm[Hg] ALEKSANDR Carpenter Attn: Accounting,[address] [facility], [place], [address], [facility] 05/21/2024 10:04:15 Date Recorded Body weight Respiratory rate Body mass index (BMI) Body height Oxygen saturation Oxygen saturation in Arterial blood by Pulse oximetry Heart rate Systolic And Diastolic Provider Name and Address Organization Details Last Updated DateTime 92429.7 2 g 18 /min 34.1 kg/m2 165.1 cm 99 % 99 % 88 /min 120/82 mm[Hg] Celestino Shipman MA [facility] 09:45:18 Social History Question Answer Notes LastModified by [employer] Details LastModified Time Tobacco Smoking Status Never Smoker Celestino Shipman MA null, [facility] 05/21/2024 09:40:02 Do You Have An Advance Directive? No Information not available 05/21/2024 Are You Blind Or Do You Have Difficulty Seeing? No Glasses Information not available 05/21/2024 What Is Your Level Of Caffeine Consumption? Occasional Rare Information not available 05/21/2024 In The 14 Days Before Symptom Onset, Have You Had Close Contact With A Laboratory-confir med COVID-19 While That Case Was Ill? No Information not available 05/21/2024 In The 14 Days Before Symptom Onset, Have You Had Close Contact With A Person Who Is Under Investigation For COVID-19 While That Person Was Ill? No Information not available 05/21/2024 Have You Been To An Area Known To Be High Risk For COVID-19? No Information not available 05/21/2024 Are You Deaf Or Do You Have Serious Difficulty Hearing? No Information not available 05/21/2024 What Type Of Diet Are You Following? REGULAR Information not available 05/21/2024 Are There Any Guns Present In Your Home? No Information not available 05/21/2024 What Was The Date Of Your Most Recent Tobacco Screening? 04/09/2025 Information not available 04/09/2025 Do You Use Your Seat Belt Or Car Seat Routinely? Yes Information not available 05/21/2024 Do You Have Smoke And Carbon Monoxide Detectors In Your Home? Yes Information not available 05/21/2024 Do You Use Sunscreen Routinely? No Information not available 05/21/2024 Has Tobacco Cessation Counseling Been Provided? No Information not available 05/21/2024 Sex: Female Functional Status Question Answer Note LastModified by Organizat ion Details LastModified Time Do you use any illicit or recreational drugs? No Information not available 05/21/2024 Do you or have you ever used any other forms of tobacco or nicotine? No Information not available 05/21/2024 What is your level of alcohol consumption? None Information not available 05/21/2024 Are you currently employed? Yes Information not available 05/21/2024 Are you able to care for yourself independently? 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 Occasional Information not available 05/21/2024 Mental Status Question Answer Note LastModified by Organization D etails LastModified Time Do you feel stressed (tense, restless, nervous, or anxious, or unable to sleep at night)? [id number] Information not available 2025 Family History Relationship Description Onset Age of this Age Resolved Age Notes LastModified by Organization Details LastModified Time Mother Hypercholest erolemia tcarterma Not available 2023 09:39:39 Mother Hypertensive disorder tcarterma Not available 2023 09:39:43 Mother Asthma tcarterma Not available 05/21/2024 10:18:02 Mother Cerebrovascu lar accident tcarterma Not available 10:18:09 Mother Depressive disorder tcarterma Not available 2023 10:18:14 Mother Migraine tcarterma Not availabl e 05/21/2024 10:18:22 Father Malignant neoplastic disease tcarterma Not available 2023 09:39:51 Father Malignant neoplasm of bone tcarterma Not available 2023 10:18:43 Medical History Condition Response Anxiety Disorder Y Coronary Artery Disease N Muscle, Joint, or Bone Problems Y Other N Atrial Fibrillation N High Blood Pressure N Seizures/Epilepsy N Cancer N Stroke N Thyroid Problems N Blood Clots N Allergies N Depression N Skin Problems N Hepatitis N Heart Attack (AR) N Headaches N Heart Failure N Osteoporosis N Gynecological History Statement/Question Response Menses Monthly N Current Control Method Hysterectom y Obstetrics History GPAL:G 2 P 2 0 0 2 Type Value Full Term 2 Induced 0 Spontaneous 0 Premature 0 Living 2 Total 2 Immunizations Vaccine Type Date Status Note Provider Nam e and Address Organization Details Recorded Time Influenza, split virus, trivalent, preservative 4 completed Celestino Shipman MA [facility] 01/01/2025 14:56:06 Past Encounters Encounter ID Performer Location Encounter Start Date Encounter Closed Date Diagnosis/Indication Diagnosis SNOMED-CT Code Diagnosis ICD10 Code Diagnosis IMO Codes Diagnosis Note [id number] Reynaldo Winn MD [facility] [address] [place] [address] 04/27/2020 09:57:42 05/02/2020 16:13:36 Viral syndrome 153357766 B34.9 [id number] Mario Vincent MD [facility] [address] [place] [address] 05/21/2024 09:22:37 05/21/2024 10:09:19 Body mass index 30+ - obesity 422271322 Z68.34 BMI is 34.1 Pain of le ft hip joint 5856518096 21097 M25.552 Persistent pain in the left hip joint. We will get updated x-rays of the left hip all views as well as check her lumbar sacral spine in case this is radicular in origin. We will also refer her for consult to an orthopedic surgeon due to the duration of symptoms. Adult [facility] th examination 292589896 Z00.01 Annual wellness exam is complete Irritable bowel syndrome characterized by constipation 236950786 K58.1 IBS with constipati on history that is currently exacerbate d by injectable weight loss therapy. We will resume Linzess 145 mcg daily dosing Generalize d anxiety disorder 36528188 F41.1 Patient is following with psychiatry specialist and is currently stable on duloxetine 30 mg at bedtime as well as Seroquel 200 mg at bedtime Indigestion 429438946 K3 0 Patient reports some indigestio n at times, we will start her on famotidine 40 mg daily Cholesterol screening 27 1854212 Z13.220 Fasting lipid panel is due Diabetes m ellitus screening 244776627 Z13.1 Annual diabetes screening is due Long-term drug therapy 315832188 Z79.899 cmp, cbc and b12, folate labs are due Thyroid di sorder screening 742975637 Z13.29 Routine thyroid labs ordered Obesity 671232085 E66.8 Patient has had great success in weight loss with injectable therapy and should continue the course of healthy diet and exercise in conjunctio n with her injectable therapy [id number] Mario Vincent MD [facility] [address] [place] [address] 2025 16:55:15 2025 17:41:25 Body mass index 30+ - obesity 587825822 Z68.34 BMI is 34.4 Obesity 832996620 E66.9 Pain of le ft hip joint 5556861261 30369 M25.552 Persistent pain in the left hip joint. We will also refer her for consult to an orthopedic surgeon due to the duration of symptoms. Irritable bowel syndrome characterized by constipation 345136947 K58.1 IBS with constipati on history that is currently exacerbate d by injectable weight loss therapy. We will resume Linzess 145 mcg daily dosing Generalize d anxiety disorder 92633892 F41.1 Patient is following with psychiatry specialist and is currently stable on duloxetine 30 mg at bedtime as well as Seroquel 200 mg at bedtime Indigestion 738098493 K3 0 Patient reports some indigestio n still happening. famotidine not really helpful. will trial PPI therapy Cholesterol screening 27 2807658 Z13.220 Fasting lipid panel is due Diabetes m ellitus screening 223694295 Z13.1 Annual diabetes screening is due Long-term drug therapy 754747109 Z79.899 cmp, cbc and b12, folate labs are due [id number] Mario Vincent MD [facility] [address] [place] [address] 04/09/2025 14:03:55 04/19/2025 15:02:11 Obese class II 0200749940 86565 E66.812 E66.3 2229752482 36.8 Injury of articular cartilage of right knee joint 4786250399 1995121 S83.8X1S 12544507 It has been several years since patient did have an ACL injury previously . She has not seen anyone in some years at this point we will send for another updated x-ray and then proceed with an MRI of the knee without contrast suspected meniscal injury Pain in right heel 12909 16472 420376 M79.671 92099294 Check x-ray of the heel and start meloxicam 15 mg daily Suspected respiratory disease 714826919 R29.818 63341092 Suspected sleep apnea send for home sleep study Irritable bowel syndrome characterized by constipation 747971975 K58.1 Patient has significan t IBS with constipati on and would like an increase in her Linzess dose we will booster to the 290 mcg daily dosing Health Concerns Section Related Observation LastModified by Organization Detai ls LastModified Time None Recorded Concern Status LastModified by Organization Details LastModified Time None Recorded Advance Directives Directive N: Payers Insurance Date Sequence Insurance Name Policy Number Policy Farrell Covered Member ID Farrell Member ID Guarantor Name 04/27/2025 1 [employer] [id number] Marcus Fitzpatrick [id number] Ting Fitzpatrick Notes Date Note Type Note Provider Name and Address Organization Details Recorded Time 0 text/html COVID-19 Symptoms January 2020Reported by Patientcough, sore throat, body aches, chest congestion1 day ago COVID ScreeningReported by PatientROS as noted in the HPI Lorena Pena PA-C Attn: Accounting,[address] [place], [address], [facility] 04/27/2020 10:41:06 4 text/html Anxiety/DepressionReported by PatientPatient is taking duloxetine 30 mg at bedtime and quetiapine 200 mg at bedtime. She is managed by the Psychiatry specialist Musculoskeletal PainReported by PatientIFor quality, patient reportsdull. For severity, patient reportsworsening. For location, patient reportsleft hip. For duration, patient reportsactual date years. For timing, patient reportsconstant. For context, patient reportstrauma. For aggravating factors, patient reportsmovement/positionin g,bending over, andtwisting. For associated symptoms, patient reportsno fever,no weak limbs,no tingling,no numbness of the legs/feet, andno incontinence.Patient has left hip pain for several years that seems to be worsening in nature. She did have some type of surgical procedure on it in the remote past but it never solved the problem and now it is just worse. annual exam IBS with constipation-patient is interested in restarting Linzess therapy which worked well for her in the past. She is just having constipation that is exacerbated by injectable GLP/GIP therapy Patient does have some mild acid reflux that is symptomatic at times especially on her injectable therapy for weight loss. Patient is due for labs ALEKSANDR Carpenter Attn: Accounting,[address] [place], [address], [facility] 05/25/2024 10:02:25 5 text/html Anxiety/DepressionReported by PatientPatient is taking duloxetine 30 mg at bedtime and quetiapine 200 mg at bedtime. She is managed by the Psychiatry specialist Mus[facility]Rep[facility], patient reportsdull. For severity, patient reportsworsening. For location, patient reportsleft hip. For duration, patient reportsactual date years. For timing, patient reportsconstant. For context, patient reportstrauma. For aggravating factors, patient reportsmovement/positionin g,bending over, andtwisting. For associated symptoms, patient reportsno fever,no weak limbs,no tingling,no numbness of the legs/feet, andno incontinence.Patient has left hip pain for several years that seems to be worsening in nature. She did have some type of surgical procedure on it in the remote past but it never solved the problem and now it is just worse. IBS with constipation-patient is interested in restarting Linzess therapy which worked well for her in the past. She is just having constipation that is exacerbated by injectable GLP/GIP therapy Patient does have some mild acid reflux that is symptomatic at times especially on her injectable therapy for weight loss. Patient is due for labs ALEKSANDR Carpenter Attn: Accounting,[address], [place], [address], [place] [facility] 01/24/2025 11:47:06 5 text/html Obstructive Sleep Apnea F/UReported by PatientHPIFor quality, patient reportsworsening,loud snoring,witnessed apnea, andsnoring with apnea. For severity, patient reportsdifficulty getting going in the morningbut reportsdoes not limit daily activitiesandno frequent sore throats resulting in excess missed days from school / work per year. For location, patient reportsenlarged tonsils __but reportsno throat painandno feeling of tightness in throat. For context, patient reportslack of adequate sleepbut reportswitness to sleep spouse. For onset/timing, patient reportsrecurring. For duration, patient reportsfrequent. For associated symptoms, patient reportsno awakening at night short of breathandno sweating heavily at night. For prior opinion, patient reportspcp. ConstipationReported by PatientHPIFor quality, patient reportsdecreased frequencyanddecreased amount. For context, patient reportshistory of ibsandhistory of chronic idiopathic constipation. For associated symptoms, patient reportsexcess gas,bloating, andcramping. For severity, patient reportsmoderate. For duration, patient reportspresent 1-4 years. For onset/timing, patient reportsonce every three days. For alleviating factors, patient reportshaving bowel movement. Musculoskeletal PainReported by PatientHPIFor quality, patient reportssharpanddull. For severity, patient reportsworsening. For location, patient reportsright kneeandright foot(right heel pain). For duration, patient reportspresent for 1-6 months. For timing, patient reportsconstant. For context, patient reportstraumaandoveruse. For aggravating factors, patient reportsmovement/positionin g. For associated symptoms, patient reportsno weak limbs,no tingling, andno numbness of the legs/feet. ALEKSANDR Carpenter Attn: Accounting,[address] [place], [address], [facility] 04/26/2025 11:41:20 OBGyn Episode No OBEpisode recorded.
--- OUTSIDE RECORDS SUMMARY | 2025-06-21 17:07 | XMS_ITS | Clinical Summary ---
Author Organization [facility] Address [address] [place] [address] Care Team Providers Care Pharmaceutical Process Engineer Name Role Phone Unavailable Primary Care Provider Unavailabl e Source Comments [facility],non-owned Affiliates and Associated Physician Practices is amultiple site organization consisting of ambulatory clinics and hospital sitesin [place], [place], [place] and [place]. This disclosure is being madepursuant to the Care Everywhere program and may not contain all information available regarding this patient. Last updated 18.[facility] Allergies No known active allergies Medications * Be aware that medications may not be up to date on this document. Alwaysverify current medications with the patient. levonorgestrel (MIRENA) 20 MCG/24HR IUD Active DULoxetine (CYMBALTA) 60 MG capsule Take 60 mg by mouth once daily 8 Active tapentadol (NUCYNTA) 75 MG tabletIndicatio ns:Chronic pain Take 1 tablet by mouth every 6 hours as needed for Pain Reasons: Chronic pain 120 tablet 0 Active Additional Information Patient not taking.Reported on 04/20/2020 tapentadol (NUCYNTA) 75 MG tabletIndicatio ns:Chronic pain Take 1 tablet by mouth every 6 hours as needed for Pain Reasons: Chronic pain 120 tablet 0 Active Additional Information Patient not taking.Reported on 01/13/2020 Nerve Stimulator DEVIIndications :back and hip pain Use 1 device as needed Reasons: back and hip pain 1 device 0 Active tapentadol (NUCYNTA) 75 MG tabletIndicatio ns:Chronic pain Take 1 tablet by mouth every 6 hours as needed for Pain Reasons: Chronic pain 120 tablet 0 Active Additional Information Patient not taking.Reported on 04/20/2020 tapentadol (NUCYNTA) 100 MG tabletIndicatio ns:chronic pain Take 1 (one) tablet by mouth every 6 hours as needed for Pain Reasons: chronic pain 120 tablet 1 Active tapentadol (NUCYNTA) 100 MG tabletIndicatio ns:chronic pain Take 1 (one) tablet by mouth every 6 hours as needed for Pain Reasons: chronic pain 120 tablet 1 Active tapentadol (NUCYNTA) 100 MG tabletIndicatio ns:chronic pain Take 1 (one) tablet by mouth every 6 hours as needed for Pain Reasons: chronic pain 120 tablet 1 Active Active Problems No known active problems Social History Tobacco Use Types Packs/Day Years Used Date Smoking Tobacco: Never Smokeless Tobacco: Never Alcohol Use Standard Drinks/Week Comments Yes 0 (1 standard drink = 0.6 oz pur e alcohol) rare Comments No Sex and Gender Information Value Date Recorded Sex Assigned at Not on file 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 Gender Identity Not on file Sexual Orientation Not on file Last Filed Vital Signs Vital Sign Reading Time Taken Comments Blood Pressure 121/73 06/23/2020 3:45 PM CDT Pulse 97 06/23/2020 3:45 PM CDT Temperature 36.3 C (97.4 F) 06/23/2020 3:05 PM CDT Respiratory Rate 18 06/23/2020 3:45 PM CDT Oxygen Saturation 98% 06/23/2020 3:45 PM CDT Inhaled Oxygen Concentration - - Weight 90.7 kg (200 lb) 06/23/2020 3:05 PM CDT Height 165.1 cm (5' 5) 06/23/2020 3:05 PM CDT Body Mass Index 33.28 06/23/2020 3:05 PM CDT Plan of Treatment Health Maintenance Due Date Last Done Comments HIV SCREENING 01/05/2004 HEPATITIS C SCREENING 12/31/2006 DTAP/TDAP/TD VACCINES (1 - Tdap) 01/05/2008 HEPATITIS B VACCINE (1 of 3 - 19+ 3-dose series) 01/05/2008 HPV VACCINE (1 - 3-dose SCDM series) 01/05/2016 DEPRESSION SCREENING 09/23/2024 COVID-19 VACCINE (1 - 2023-2 5 season) 2025 INFLUENZA VACCINE (#1) 2025 9, 06/05/2014 ZOSTER VACCINE (1 of 2) 2039 HIB VACCINE Aged Out No longer eligi ble based on patient's age to complete this topic MENINGOCOCCAL (Group B) VACCINE SHARED DECISION-MAKING Aged Out No longer eligible based on patient's age to complete this topic MENINGOCOCCAL GROUPS A/C/Y/W VACCINE Aged Out No longer eligible b ased on patient's age to complete this topic PNEUMOCOCCAL VACCINE Aged Out No long er eligible based on patient's age to complete this topic Medical Devices Implanted Type Area Knock Out Hand Device Identifier Shelf Expiration Date Model / Serial / Lot Buckeye Sut Cinchlock Flx Kntls Insrtr Implanted:Qty: 1 on 06/26/2018 by Nitin Dee MD at [facility] Left: Hip [employer] 08/14/2019 [id number] / / [id number] Buckeye Sut Cinchlock Flx Kntls Insrtr Implanted:Qty: 1 on 06/26/2018 by Nitin Dee MD at [facility] Left: Hip [employer] 08/18/2018 [id number] / / [id number] Insurance [facility] [employer] [facility]
--- OUTSIDE RECORDS SUMMARY | 2025-06-21 17:07 | XMS_ITS | Clinical Summary ---
Author Organization [facility] Address [address] [place] [address] Phone Care Team Providers Care Register In Chancery Name Role Phone Unavailable Primary Care Provider Unavailabl e Medications Acetaminophen (TYLENOL EXTRA STRENGTH PO) Take by mouth. Ac tive Levonorgestrel (MIRENA IU) by Intrauterine route. Active HYDROcodone-poornima taminophen (NORCO) 5-325 MG Tablet Take 1 Tab by mouth every 6 hours as needed for Pain. 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 Overview (07/20/2014): left Recurrent UTI 07/20/2014 Immunizations Immunization Administration Dates Next Due Influenza Vaccine greater than 3 yrs 06/05/2014 Family History Medical History Relation Name Comments Cancer Father Aneurysm Maternal Grandmother Cancer Maternal Grandmother Kidney Disease Maternal Grandmother No Known Problems Mother Relation Name Status Comments Brother Alive Father Maternal Grandfather Alive Maternal Grandmother Alive Mother Alive Paternal Grandfather Paternal Grandmother Sister 1 Alive Sister 2 Alive Social History Tobacco Use Types Packs/Day Years Used Date Smoking Tobacco: Never Tobacco Cessation:Counseling Given: No Alcohol Use Standard Drinks/Week Comments Yes 0 (1 standard drink = 0.6 oz pur e alcohol) very little Sexually Active Control Partners Comments Yes Male Comments No Sex and Gender Information Value Date Recorded Sex Assigned at Not on file Legal Sex Female 8:32 AM CDT Gender Identity Not on file Sexual Orientation Not on file Last Filed Vital Signs Vital Sign Reading Time Taken Comments Blood Pressure 110/76 01/19/2016 8:32 AM CDT Pulse 84 01/19/2016 8:32 AM CDT Temperature 36.1 C (96.9 F) 01/19/2016 8:32 AM CDT Respiratory Rate 14 01/19/2016 8:32 AM CDT Oxygen Saturation 98% 01/19/2016 8:32 AM CDT Inhaled Oxygen Concentration - - Weight 80.4 kg (177 lb 3.2 oz) 01/19/2016 8:32 A M CDT Height 165.1 cm (5' 5) 01/19/2016 8:32 AM CDT Body Mass Index 29.49 01/19/2016 8:32 AM CDT Plan of Treatment Health Maintenance Due Date Last Done Comments Hepatitis C Virus (HCV) Screening 1989 TdaP Immunization 1989 Hepatitis B Immunization (1 of 3 - 19+ 3-dose series) 01/05/2008 Pap Smear 2010 Human Papillomavirus (HPV) Immunization (1 - 3-dose SCDM series) 01/05/2016 Cervical Cancer Screening (CCS) 2019 HPV/Cotest 2019 Influenza Immunization (#1) 2025 06/05/2014 SARS-COV-2 Immunization ( season) 2025 Respiratory Syncytial Virus (RSV) Immunization (Adult) (1 - 1-dose 75+ series) 01/05/2064 Meningococcal Immunization (ACWY) Aged Out No longer eligible based on patient's age to complete this topic Pneumococcal Immunization Combined Aged Out No longer eligible based on patient's age to complete this topic Rotavirus Immunization Aged Out No lo nger eligible based on patient's age to complete this topic
[2025-06-21] MEDS: ONDANSETRON INJ 4 MG/2 ML VIAL IV PUSH (17:50)
[2025-06-21] MEDS: FAMOTIDINE 20 MG/2 ML VIAL IV PUSH (17:51)
[2025-06-21] MEDS: MORPHINE SULFATE (*CRX) 4 MG/ML INJ IV PUSH ×2 (17:51→21:10)
--- NOTE | 2025-06-21 17:52 | ED.ABDPAIN ---
HPI - Abdominal Pain General Chief Complaint: Abdominal Pain Stated Complaint: Pain under rib w/ vomitting Time Seen by Provider: 06/21/25 16:53 Source: patient Mode of arrival: ambulatory Limitations: no limitations History of Present Illness HPI narrative: Patient is a 35-year-old female, with PMH of solitary kidney, who presents the ED with report of right upper abdominal pain. Patient reports she began in her right upper abdomen around 1230pm today. Had had a granola bar and peanuts prior to when the pain began. Reports pain radiates up into her chest slightly. Attempted to take Pepto-Bismol and Gas-X / Tums, but began having nausea, vomiting. Prompted here for further evaluation. Has not been able to take anything for pain due to the vomiting. Denies history of similar pain or issues with her gallbladder in the past. Reports history of chronic constipation, on Linzess, but did have a normal bowel movement this morning. Denies rectal bleeding or melena, fevers. Related Data Home Medications ?Medication ?Instructions ?Recorded ?Confirmed ?Last Taken ?Type duloxetine 60 mg capsule,delayed 60 mg PO HS 02/15/21 11/22/22 11/21/22 21:00 History release quetiapine 200 mg tablet 200 mg PO 02/15/21 11/22/22 11/21/22 21:00 History Allergies Allergy/AdvReac Type Severity Reaction Status Date / Time No Known Allergies Allergy Verified 06/21/25 16:55 Review of Systems Review of Systems: All systems reviewed & are unremarkable except as noted in HPI. All systems reviewed & are unremarkable except as noted in HPI and below PMFSH Past Medical History Medical History Bipolar disorder Obesity Depression Anxiety Surgical History Surgical History History of breast lift H/O breast augmentation Status post laparoscopic surgery fallopian tube H/O hysterectomy for benign disease H/O arthroscopic knee surgery History of section Family History Family History Father Cancer Grandparent Heart disease Other Family history of malignant neoplasm Social History Social History Social History: she lives with her family. she is and has two children. She works at [employer] and side of [employer]. Code status full code Smoking status: Never smoker Alcohol intake: never Substance use: never Substance use type: does not use Lack of Transportation: No Lack of Food: Never True Current Housing: I Have Housing Concerned About Future Housing: No Difficulty Paying Gas/Electric Bills: No Difficulty Paying for Meds: No Currently Unemployed: No Education: High School Diploma/GED Difficulty w/ Childcare or Family Care: No Living arrangements: with family Spiritual care concerns: No Exam Narrative: GENERAL: Well appearing, obese with BMI of 35.0, non-toxic, in no acute distress. HEAD: Normocephalic, atraumatic. RESPIRATORY: Airway patent, respirations nonlabored. Clear to auscultation bilaterally, no rales, rhonchi, wheezing. CARDIOVASCULAR: Regular rate and rhythm without murmurs, rubs, or gallops. ABDOMINAL: Soft, focal tenderness in right upper quadrant, nondistended. Normoactive BS. MUSCULOSKELETAL: Moves all extremities. No gross deformities. SKIN: Warm, dry, normal color. NEURO: A&O X3. Speech clear. Cranial nerves II-XII grossly intact. Steady gait. No ataxic movements. PSYCHIATRIC: Appropriate mood and affect. Normal interaction. Course Vital Signs Vital signs: Vital Signs Temperature 98.4 F 06/21/25 16:50 Pulse Rate 86 06/21/25 16:50 Respiratory Rate 18 06/21/25 16:50 Blood Pressure 115/79 06/21/25 16:50 Pulse Oximetry 97 06/21/25 16:50 Oxygen Delivery Room Air 06/21/25 16:50 Temperature 98.4 F 06/21/25 16:50 Pulse Rate 86 06/21/25 16:50 Respiratory Rate 18 06/21/25 16:50 Blood Pressure 115/79 06/21/25 16:50 Pulse Oximetry 97 06/21/25 16:50 Oxygen Delivery Room Air 06/21/25 16:50 MDM - Abdominal Pain MDM Narrative Medical decision making narrative: Patient presented to ED with right upper quadrant abdominal pain that began this afternoon, associated nausea, vomiting. No history of similar pain. Vital signs stable upon arrival. Patient is afebrile. EKG w/o ischemic changes. Laboratory studies without leukocytosis. Normal CBC. Liver enzymes are elevated on CMP. AST 492, ALT 283, alk phos 141. Normal total bilirubin, normal lipase. Troponin undetectable. UA is clear. CT scan of abdomen/pelvis obtained showing evidence of acute cholecystitis with gallbladder wall thickening, pericholecystic fluid, gallstones. Consistent with clinical picture. Patient started on rocephin/flagyl per ED abx stewardship. Reporting ongoing pain after Morphine. Discussed case with Dr. Molina, general surgery, accepted consult. Admitted under hospitalist service. Repeat labs in a.m. Patient in agreement with plan and admission. Given additional pain control. Discussed case with Kaylen Rolon PICTURE COPYIST hospitalist, accepted patient for admission. Medical Records Attestation: I reviewed the patient's medical records. Lab Data Attestation: I reviewed the patient's lab results. 06/21/25 17:48 06/21/25 17:48 Labs: Lab Results 06/21/25 Range/Units 17:48 WBC 7.2 (4.5-10.0) K/mm3 RBC 4.38 (4.2-5.4) M/mm3 Hgb 12.4 (12.0-15.0) g/dL Hct 38.2 (37.0-47.0) % MCV 87.2 (80-100) fl MCH 28.3 (26-34) pg MCHC 32.5 (32-36) g/dl RDW 14.5 (11.5-14.5) % Plt Count 261 (150-375) k/mm3 MPV 8.9 (7.4-10.4) fl Immature Gran % (Auto) 0.3 (0-0.5) % Neut % (Auto) 68.7 (45.5-73.1) % Lymph % (Auto) 22.3 (18.3-44.2) % [place] % (Auto) 6.4 (2.6-8.5) % Eos % (Auto) 1.9 (0-4.4) % Baso % (Auto) 0.4 (0.2-1.2) % Lymph # (Auto) 1.60 (0.9-3.2) K/mm3 [place] # (Auto) 0.5 (0.1-0.6) K/mm3 Eos # (Auto) 0.1 (0-0.3) K/mm3 Baso # (Auto) 0.0 (0.0-0.1) K/mm3 Abs Immat Gran (auto) 0.02 (0.00-0.031) K/mm3 Absolute Neuts (auto) 4.9 (1.3-6.7) K/mm3 Absolute Nucleated RBC 0.000 (0.0-0.012) K/mm3 Nucleated RBC % 0.0 (0.0-0.2) % Sodium 139 (137-145) mmol/L Potassium 3.9 (3.4-5.0) mmol/L Chloride 100 (98-107) mmol/L Carbon Dioxide 31 H (22-30) mmol/L Anion Gap 8 (4-12) mmol/L BUN 11 D (7-17) mg/dL Creatinine 0.98 (0.7-1.0) mg/dL Estim Creat Clear Calc 80 ml/min Estimated GFR > 60 (59 - ) Glucose 104 (65-110) mg/dL Calcium 9.2 (8.4-10.2) mg/dL Total Bilirubin 0.9 (0.2-1.3) mg/dL AST 492 H (14-36) U/L ALT 283 H (6-35) U/L Alkaline Phosphatase 141 H (38-126) U/L Total Protein 8.3 H (6.3-8.2) g/dL Albumin 4.3 (3.5-5.1) g/dL Lipase 221 (23-300) U/L Urine Color Yellow (Yellow) Urine Appearance Clear (Clear) Urine pH 5.5 (5.0-9.0) Ur Specific [place] 1.017 (1.001-1.035) Urine Protein Negative (Negative) mg/dL Urine Glucose (UA) Negative (Negative) mg/dL Urine Ketones Negative (Negative) mg/dL Ur Blood (Man) Negative (Negative) Urine Nitrate Negative (Negative) Urine Bilirubin Negative (Negative) Urine Urobilinogen 1.0 (<2.0) mg/dL Leukocyte Esterase Rfl Negative (Negative) JOSE JUAN/UL Imaging Data Attestation: I personally reviewed and interpreted this imaging study as follows: Radiologist's impression: ITS Impressions Abdomen/Pelvis CT 06/21/25 18:39 IMPRESSION: 1. Worrisome for acute cholecystitis. ECG Data EKG #1: Attestation: I personally reviewed and interpreted this ECG as follows: ECG completion date: 06/21/25 ECG completion time: 18:02 normal rate (74), sinus rhythm and no ST changes Discharge Plan Discharge Clinical Impression: Acute cholecystitis, Transaminitis Patient Disposition: Still a Patient Condition: Stable Patient Language: Syriac Prescriptions: No Action quetiapine 200 mg tablet 200 mg PO HS duloxetine 60 mg capsule,delayed release(DR/EC) 60 mg PO HS cephalexin 250 mg capsule 250 mg PO DAILY Qty: 30 1RF Rx Instructions: Start after completing the Cefdinir cefdinir 300 mg capsule 300 mg PO Q12H 7 Days Qty: 14 0RF Follow-up/Referrals: Saji,LAMIN Kidd [Primary Care Provider, Unknown]
--- NOTE | 2025-06-21 17:54 | ECG_ITS ---
Test Date: 2025-06-21 18:02:33 Measurements Intervals [place] Rate: 74 P: 4 [place]: 148 QRS: 41 QRSD: 83 T: 38 QT: 376 QTc: 417 Interpretive Statements SINUS RHYTHM No previous ECG available for comparison Electronically Signed On 06-21-2025 20:27:32 CDT by León Card M.D.
[2025-06-21 17:55] LABS: Hematocrit 38.2 % (37.0-47.0); Hemoglobin 12.4 g/dL (12.0-15.0); Immature Granulocyte Percent A 0.3 % (0-0.5); Lymphocytes Absolute Auto 1.60 K/mm3 (0.9-3.2); Mean Corpuscular HGB Conc 32.5 g/dl (32-36); Mean Corpuscular Hemoglobin 28.3 pg (26-34); Mean Corpuscular Volume 87.2 fl (80-100); Nucleated Red Blood Cells Absolute Auto 0.000 K/mm3 (0.0-0.012); Nucleated Red Blood Cells Perc 0.0 % (0.0-0.2); Platelet Count Result 261 k/mm3 (150-375); Red Blood Count 4.38 M/mm3 (4.2-5.4); White Blood Count 7.2 K/mm3 (4.5-10.0)
[2025-06-21 17:57] LABS: Add Urine Microscopic? NO; Appearance Urine Clear (Clear); Glucose Urine UA Negative (Negative); Leukocyte Esterase Ur Negative LEU/UL (Negative); Nitrate Urine Negative (Negative); Specific Grav Ur 1.017 (1.001-1.035)
[2025-06-21 18:16] LABS: Alanine Aminotransferase 283 U/L (6-35); Albumin Level 4.3 g/dL (3.5-5.1); Alkaline Phosphatase 141 U/L (38-126); Anion Gap 8 mmol/L (4-12); Aspartate Amino Transferase 492 U/L (14-36); Bilirubin,Total 0.9 mg/dL (0.2-1.3); Blood Urea Nitrogen 11 mg/dL (7-17); Calcium 9.2 mg/dL (8.4-10.2); Carbon Dioxide 31 mmol/L (22-30); Chloride 100 mmol/L (98-107); Estimated CRCL calculation 80 ml/min; Estimated Glomerular Filt Rate > 60; Glucose 104 mg/dL (65-110); Lipase 221 U/L (23-300); Potassium 3.9 mmol/L (3.4-5.0); Sodium 139 mmol/L (137-145); Total Protein 8.3 g/dL (6.3-8.2)
[2025-06-21 18:55] LABS: Troponin I < 0.012 ng/mL (0.000-0.034)
[2025-06-21] MEDS: SODIUM CHLORIDE 0.9% IV 1,000 ML 999 ML IV CONT (19:37)
[2025-06-21] MEDS: HYDROmorphone HCL INJ (*CRX) 1 MG/ML SYR 0.5 MG IV PUSH (19:37)
[2025-06-21] MEDS: cefTRIAXone 1 GM in SODIUM CHLORIDE 0.9% IV 50 ML 100 ML IVPB (19:40)
[2025-06-21] MEDS: PIPERACILLIN/TAZOBACTAM SOD 3.375 GM in SODIUM CHLORIDE 0.9% IV 50 ML 100 ML IVPB (20:02)
[2025-06-21] MEDS: metroNIDAZOLE 500 MG/ISO 100ML 500 MG/100 ML BAG 100 MG IVPB (20:39)
[2025-06-21] MEDS: SODIUM CHLORIDE 0.9% IV 1,000 ML 100 ML IV CONT (20:39)
[2025-06-21 20:47] VITALS: BMI 35.2
[2025-06-21 21:23] VITALS: BP 130/73; PULSE 85; RESP 16; TEMP 36.5; O2SAT 100
--- NOTE | 2025-06-21 21:31 | ADMGEN ---
This patient, Ting Fitzpatrick, was admitted to Medical Room 254-01. Patient/family oriented to hospital policies and general routines including ID bracelet, bed and alarms, visiting hours, pain management, procedures, bathroom and other care routines, personal items, smoking policy, room service/diet, and visiting hours. Information on how to activate the Rapid Response Team has been discussed. Patient/Family are encouraged to report perceived risks to care and to ask questions if they do not understand what they are told or what they should do.
--- NOTE | 2025-06-21 22:00 | PM.IMHP ---
H&P: HPI History of Present Illness Date/Time: 06/21/25 22:00 Chief Complaint: This is a 35-year-old female patient with a history of solitary kidney. The patient developed right upper quadrant discomfort today around 12:30 p.m. after eating a granola bar peanuts. The patient has had no prior history of gallbladder disease in the past. The patient stated that she took Pepto-Bismol with Gas-X and Tums with no relief. The patient has been having nausea and vomiting. The patient does have a history of chronic constipation and takes Linzess. She stated she did have a normal bowel movement this morning. She denies having any blood in her stool. She denies any fever or chills. Her CT scan was read as worrisome for acute cholecystitis. Her AST is 492, ALT is 283, and alkaline phosphatase 141. The patient was started on Flagyl and Rocephin, IV fluids, Zofran and morphine. Surgery has been consulted. The patient is being admitted to observation status on the date of service of 06/21/2025. Review of Systems Constitutional: Constitutional: Reports as per HPI and Reports no additional constitutional complaints Eyes: Eyes: Reports as per HPI and Reports no additional eye complaints ENT: Reports system reviewed and no additional complaints, except as documented and Reports Normal hearing present Cardiovascular: Cardiovascular: Reports no additional cardiovascular complaints Respiratory: Respiratory: Reports as per HPI and Reports no additional respiratory complaints Gastrointestinal: Gastrointestinal: Reports as per HPI and Reports no additional gastrointestinal complaints Genitourinary: Genitourinary: Reports no additional female genitourinary complaints Musculoskeletal: Musculoskeletal: Reports no additional musculoskeletal complaints Integumentary/Breasts: Skin/Breast: Reports system reviewed and no additional complaints, except as docu Neurologic: Reports system reviewed and no additional complaints, except as documented and Reports Normal hearing present Psychiatric: Psychiatric: Reports no additional psychiatric complaints and Reports as per HPI Hematologic/Lymphatic: Hematologic/Lymphatic: Reports no additional hematologic/lymphatic complaints Allergic/Immunologic: Allergic/Immunologic: Reports no additional allergic/immunologic complaints [facility] Past Medical History Medical History Bipolar disorder Obesity Depression Anxiety Surgical History Surgical History History of breast lift H/O breast augmentation Status post laparoscopic surgery fallopian tube H/O hysterectomy for benign disease H/O arthroscopic knee surgery History of section Family History Family History Father Cancer Grandparent Heart disease Other Family history of malignant neoplasm Social History Social History Social History: she lives with her family. she is and has two children. She works at [employer] and side of [employer]. Code status full code Smoking status: Never smoker Alcohol intake: never Substance use: never Substance use type: does not use Lack of Transportation: No Lack of Food: Never True Current Housing: I Have Housing Concerned About Future Housing: No Difficulty Paying Gas/Electric Bills: No Difficulty Paying for Meds: No Currently Unemployed: No Education: Associate Degree Difficulty w/ Childcare or Family Care: No Living arrangements: with family Spiritual care concerns: No Meds Home Medications and Allergies Home Medications ?Medication ?Instructions ?Recorded ?Confirmed ?Type quetiapine 200 mg tablet 200 mg PO HS 02/15/21 06/21/25 History duloxetine 20 mg capsule,delayed 20 mg PO HS 06/21/25 06/21/25 History release linaclotide 145 mcg capsule 145 mcg PO DAILY PRN constipation 06/21/25 06/21/25 History (Linzess) omeprazole 20 mg capsule,delayed 20 mg PO DAILY 06/21/25 06/21/25 History release Allergies Allergy/AdvReac Type Severity Reaction Status Date / Time No Known Allergies Allergy Verified 06/21/25 16:55 Vital Signs Vital Signs - 24 hr 06/21/25 16:50 06/21/25 21:23 06/21/25 21:46 Temperature 98.4 F 97.7 F Pulse Rate 86 85 Respiratory Rate 18 16 Blood Pressure 115/79 130/73 Pulse Oximetry 97 100 Oxygen Delivery Room Air Room Air Exam Const: General: cooperative, no acute distress, well developed, awake, Physically active, average body habitus and well nourished Nutritional Appearance: average body habitus and well nourished Orientation/consciousness: oriented to person, oriented to place, oriented to time and patient oriented x3 Limitations: no limitations HENMT: Head: normal to inspection, No palpable skull fracture present, normocephalic and atraumatic Ears: hearing grossly normal bilaterally and external ears normal Eyes: General: appearance normal, both eyes and all related structures Alignment and Position: alignment normal Periorbital: periorbital findings normal Eyelids: eyelids normal Conjunctivae: conjunctivae normal Sclera: sclerae normal Cornea: corneas normal Pupils: Equal, round and reactive pupils present and Pupil accommodation reflex normal EOM: EOMs intact bilaterally Neck: Neck: normal visual inspection and full ROM Chest: Chest palpation & inspection: normal inspection of the chest Resp: Effort & Inspection: normal respiratory effort Auscultation: clear to auscultation bilaterally Cardio: Palpation: normal PMI Rate: regular rate Rhythm: regular rhythm Heart sounds: S1 normal heart sound present and S2 normal heart sound present Peripheral pulses: Peripheral pulses 2+ throughout GI: Inspection: normal to inspection Auscultation: normal bowel sounds Rectal Exam: deferred Other: Tenderness to right upper quadrant with light and deep palpation. : General: Yes no CVA tenderness Skin: General skin exam: normal color Lesions: no lesions Rashes: no rashes Trauma: no lacerations or abrasions Wounds: no wounds Hair: normal Nails: normal Neuro: General: oriented to person, oriented to place, oriented to time and patient oriented x3 Cranial nerves: Yes Equal, round and reactive pupils present and Yes Normal hearing present Cognition (Neuro): normal cognition Speech: normal speech Gait exam (Neuro): Normal gait present Motor exam (neuro): 5/5 motor strength present throughout Sensory Exam: normal sensation Extrem: General: normal to inspection Right upper extremity: normal to inspection and shoulder/upper arm Left upper extremity: normal to inspection and shoulder/upper arm Right lower extremity: normal to inspection Left lower extremity: normal to inspection Psych: Appearance: grossly normal Mental Status: mental status grossly normal Speech and movement: Normal speech and movement present Affect: normal affect Attitude: cooperative Thought process: Normal thought process present Thought content: Yes Normal thought content present Insight: Good insight present (Psych) Judgement: Good judgement present (Psych) H&P: Results Labs Labs: Short CBC 06/21/25 Range/Units 17:48 WBC 7.2 (4.5-10.0) K/mm3 Hgb 12.4 (12.0-15.0) g/dL Hct 38.2 (37.0-47.0) % Plt Count 261 (150-375) k/mm3 BMP 06/21/25 17:48 Sodium 139 Potassium 3.9 Chloride 100 Carbon Dioxide 31 H BUN 11 D Creatinine 0.98 Glucose 104 Calcium 9.2 Cardiac Enzymes 06/21/25 Range/Units 17:48 Troponin I < 0.012 (0.000-0.034) ng/mL Liver Function 06/21/25 Range/Units 17:48 Total Bilirubin 0.9 (0.2-1.3) mg/dL AST 492 H (14-36) U/L ALT 283 H (6-35) U/L Alkaline Phosphatase 141 H (38-126) U/L Albumin 4.3 (3.5-5.1) g/dL Urine 06/21/25 Range/Units 17:48 Urine Color Yellow (Yellow) Urine Appearance Clear (Clear) Urine pH 5.5 (5.0-9.0) Ur Specific [place] 1.017 (1.001-1.035) Urine Protein Negative (Negative) mg/dL Urine Glucose (UA) Negative (Negative) mg/dL Imaging CT scan - abdomen: Radiologist's impression: Impressions Abdomen/Pelvis CT 06/21/25 18:39 IMPRESSION: 1. Worrisome for acute cholecystitis. Assessment and Plan Assessment and plan (1) Acute cholecystitis: Code(s): K81.0 - Acute cholecystitis Status: Acute Assessment and Plan: -continue with NPO status at this time. -the patient is on Flagyl and Rocephin. -continue with IV fluids -continue with anti nausea medicine -surgery has been consulted. Further evaluation would greatly be appreciated. -continue with pain management. (2) Transaminitis: Code(s): R74.01 - Elevation of levels of liver transaminase levels Status: Acute Assessment and Plan: -ultrasound has been ordered. -Seroquel can also elevate liver enzymes as well. -could be related to cholecystitis -duloxetine can also elevate liver enzymes. (3) Bipolar disorder: Code(s): F31.9 - Bipolar disorder, unspecified Status: Acute Assessment and Plan: -the patient is NPO at this time. Her Seroquel and duloxetine are on hold. Quality VTE Prophylaxis VTE prophylaxis: mechanical ordered
[2025-06-22] MEDS: MORPHINE SULFATE (*CRX) 4 MG/ML INJ IV PUSH ×7 (00:30→20:04)
[2025-06-22] MEDS: ACETAMINOPHEN 325 MG TABLET 650 MG PO (01:30)
[2025-06-22 05:02] LABS: Hematocrit 34.7 % (37.0-47.0); Hemoglobin 11.4 g/dL (12.0-15.0); Immature Granulocyte Percent A 0.3 % (0-0.5); Lymphocytes Absolute Auto 1.76 K/mm3 (0.9-3.2); Mean Corpuscular HGB Conc 32.9 g/dl (32-36); Mean Corpuscular Hemoglobin 28.4 pg (26-34); Mean Corpuscular Volume 86.3 fl (80-100); Nucleated Red Blood Cells Absolute Auto 0.000 K/mm3 (0.0-0.012); Nucleated Red Blood Cells Perc 0.0 % (0.0-0.2); Platelet Count Result 221 k/mm3 (150-375); Red Blood Count 4.02 M/mm3 (4.2-5.4); White Blood Count 7.7 K/mm3 (4.5-10.0)
[2025-06-22] MEDS: metroNIDAZOLE 500 MG/ISO 100ML 500 MG/100 ML BAG 100 MG IVPB ×3 (05:13→21:08)
[2025-06-22] MEDS: HYDROmorphone HCL INJ (*CRX) 1 MG/ML SYR 0.5 MG IV PUSH (05:16)
[2025-06-22 05:19] VITALS: BP 110/69; PULSE 72; RESP 17; TEMP 36.8; O2SAT 98
[2025-06-22 05:25] LABS: Alanine Aminotransferase 365 U/L (6-35); Albumin Level 3.5 g/dL (3.5-5.1); Alkaline Phosphatase 151 U/L (38-126); Anion Gap 6 mmol/L (4-12); Aspartate Amino Transferase 399 U/L (14-36); Bilirubin,Total 0.6 mg/dL (0.2-1.3); Blood Urea Nitrogen 10 mg/dL (7-17); Calcium 8.3 mg/dL (8.4-10.2); Carbon Dioxide 28 mmol/L (22-30); Chloride 104 mmol/L (98-107); Estimated CRCL calculation 79 ml/min; Estimated Glomerular Filt Rate > 60; Glucose 93 mg/dL (65-110); Magnesium 1.8 mg/dL (1.6-2.3); Potassium 4.2 mmol/L (3.4-5.0); Sodium 138 mmol/L (137-145); Total Protein 6.7 g/dL (6.3-8.2)
[2025-06-22 07:35] VITALS: BP 128/80; PULSE 74; RESP 16; TEMP 36.2; O2SAT 98
[2025-06-22] MEDS: ONDANSETRON INJ 4 MG/2 ML VIAL IV PUSH (07:40)
--- NOTE | 2025-06-22 07:41 | P.PNIM_ITS ---
Progress Note: A&P Assessment and Plan (1) Acute cholecystitis: Code(s): K81.0 - Acute cholecystitis Status: Acute Assessment and Plan: * Abd/pelvis CT: Worrisome for acute cholecystitis. * Monitor vital signs, I and O's, check stool output, neuro status and patient is a fall risk * Monitor serum electrolytes and CBC * Monitor lactic acid * IV pain management * Gentle IV fluid resuscitation * Flagyl + Rocephin * US Abd: Cholelithiasis with dilation of the common bile duct measuring 8 mm and gallbladder wall thickening. Positive sonographic Bruno sign. Findings suspicious for cholecystitis. Clinically correlate. * General surgery consulted * MRCP today * NPO (2) Transaminitis: Code(s): R74.01 - Elevation of levels of liver transaminase levels Status: Acute Assessment and Plan: * In ED: AST/ALT 492/283 * Seroquel can also elevate liver enzymes as well. * could be related to cholecystitis * duloxetine can also elevate liver enzymes. * Abd US pending (3) Bipolar disorder: Code(s): F31.9 - Bipolar disorder, unspecified Status: Acute Assessment and Plan: * the patient is NPO at this time. Her Seroquel and duloxetine are on hold. Subjective Date/time seen: 06/22/25 07:41 Interval history: 35-year-old female patient with a history of solitary kidney. The patient developed right upper quadrant discomfort today around 12:30 p.m. after eating a granola bar peanuts. The patient has had no prior history of gallbladder disease in the past. The patient stated that she took Pepto-Bismol with Gas-X and Tums with no relief. 06/22/2025 Patient is sitting in bed at time of exam. Denies any chest pain, SOB, or nausea at this time. Does have some RUQ abd pain, worse on palpation. US abd shows CBD dilation, + Bruno sign, suspicion for cholecystitis. General surgery consulted - plan for MCRP today. Keep NPO. Review of Systems Constitutional: Constitutional: Reports as per HPI and Reports no additional constitutional complaints Eyes: Eyes: Reports as per HPI and Reports no additional eye complaints ENT: Reports system reviewed and no additional complaints, except as documented and Reports Normal hearing present Cardiovascular: Cardiovascular: Reports no additional cardiovascular complaints Respiratory: Respiratory: Reports as per HPI and Reports no additional respiratory complaints Gastrointestinal: Gastrointestinal: Reports as per HPI and Reports no additional gastrointestinal complaints Genitourinary: Genitourinary: Reports no additional female genitourinary complaints Musculoskeletal: Musculoskeletal: Reports no additional musculoskeletal complaints Integumentary/Breasts: Skin/Breast: Reports system reviewed and no additional complaints, except as docu Neurologic: Reports system reviewed and no additional complaints, except as documented and Reports Normal hearing present Psychiatric: Psychiatric: Reports no additional psychiatric complaints and Reports as per HPI Hematologic/Lymphatic: Hematologic/Lymphatic: Reports no additional hematologic/lymphatic complaints Allergic/Immunologic: Allergic/Immunologic: Reports no additional allergic/immunologic complaints Exam Const: General: cooperative, no acute distress, well developed, awake, Physically active, average body habitus and well nourished Nutritional Appearance: average body habitus and well nourished Orientation/consciousness: oriented to person, oriented to place, oriented to time and patient oriented x3 Limitations: no limitations HENMT: Head: normal to inspection, No palpable skull fracture present, normocephalic and atraumatic Ears: hearing grossly normal bilaterally and external ears normal Eyes: General: appearance normal, both eyes and all related structures Alignment and Position: alignment normal Periorbital: periorbital findings normal Eyelids: eyelids normal Conjunctivae: conjunctivae normal Sclera: sclerae normal Cornea: corneas normal Pupils: Equal, round and reactive pupils present and Pupil accommodation reflex normal EOM: EOMs intact bilaterally Neck: Neck: normal visual inspection and full ROM Chest: Chest palpation & inspection: normal inspection of the chest Resp: Effort & Inspection: normal respiratory effort Auscultation: clear to auscultation bilaterally Cardio: Palpation: normal PMI Rate: regular rate Rhythm: regular rhythm Heart sounds: S1 normal heart sound present and S2 normal heart sound present Peripheral pulses: Peripheral pulses 2+ throughout GI: Inspection: normal to inspection Auscultation: normal bowel sounds Rectal Exam: deferred Other: Tenderness to right upper quadrant with light and deep palpation. : General: Yes no CVA tenderness Back/Spine/Pelvis: Back: no CVA tenderness Skin: General skin exam: normal color Lesions: no lesions Rashes: no rashes Trauma: no lacerations or abrasions Wounds: no wounds Hair: normal Nails: normal Neuro: General: oriented to person, oriented to place, oriented to time and patient oriented x3 Cranial nerves: Yes Equal, round and reactive pupils present and Yes Normal hearing present Cognition (Neuro): normal cognition Speech: normal speech Gait exam (Neuro): Normal gait present Motor exam (neuro): 5/5 motor strength present throughout Sensory Exam: normal sensation Extrem: General: normal to inspection Right upper extremity: normal to inspection and shoulder/upper arm Left upper extremity: normal to inspection and shoulder/upper arm Right lower extremity: normal to inspection Left lower extremity: normal to inspection Psych: Appearance: grossly normal Mental Status: mental status grossly normal Speech and movement: Normal speech and movement present Affect: normal affect Attitude: cooperative Thought process: Normal thought process present Insight: Good insight present (Psych) Judgement: Good judgement present (Psych) Objective Data Vital Signs Vital Signs: Vital Signs - 24 hr 06/21/25 16:50 06/21/25 21:23 06/21/25 21:46 Temperature 98.4 F 97.7 F Pulse Rate 86 85 Respiratory Rate 18 16 Blood Pressure 115/79 130/73 Pulse Oximetry 97 100 Oxygen Delivery Room Air Room Air 06/22/25 05:19 06/22/25 07:35 Temperature 98.2 F 97.1 F L Pulse Rate 72 74 Respiratory Rate 17 16 Blood Pressure 110/69 128/80 Pulse Oximetry 98 98 Oxygen Delivery Intake/Output Intake/Output: Intake & Output 06/19/25 06/20/25 06/21/25 06/22/25 23:59 23:59 23:59 23:59 Intake Total 100 100 Output Total 50 300 Balance 50 -200 Meds/Results Medications: Active Medications Generic Name Dose Route Start Last Admin Trade Name Freq PRN Reason Stop Dose Admin Dextrose 12.5 gm 06/21/25 19:54 Dextrose 50% 25 Gm/50 Ml Syringe IV PUSH PRN PRN Hypoglycemia Protocol Glucagon 1 mg 06/21/25 19:54 Glucagon For Inj 1 Mg Vial IM PRN PRN Hypoglycemia Protocol Glucose 15 gm 06/21/25 19:54 Glucose Oral Gel 15 Gm Of Glucse In 37.5 Gm Tube PO PRN PRN Hypoglycemia Protocol Hydromorphone HCl 0.5 mg 06/21/25 19:54 06/22/25 05:16 Hydromorphone Hcl Inj (*Crx) 1 Mg/Ml Syr IV PUSH 0.5 mg Q4H PRN Administration Pain Rated 7-10 Ceftriaxone Sodium 1 gm/ 50 mls @ 100 mls/hr 06/21/25 18:00 06/21/25 22:46 Sodium Chloride IVPB Not Given Q24H TEMI Metronidazole 500 mg in 100 mls @ 100 mls/hr 06/22/25 06:00 06/22/25 06:13 Flagyl 500 Mg/Iso Soln 100 Ml IVPB Infused Q8H TEMI Infusion Sodium Chloride 1,000 mls @ 100 mls/hr 06/21/25 19:55 06/21/25 20:39 Normal Saline Iv IV CONT 100 mls/hr .Q10H TEMI Administration Dextrose 1,000 mls @ 100 mls/hr 06/21/25 19:54 Dextrose 5% 1,000 Ml IVPB PRN PRN Hypoglycemia Protocol Morphine Sulfate 4 mg 06/21/25 19:54 06/22/25 00:30 Morphine Sulfate (*Crx) 4 Mg/Ml Inj IV PUSH 4 mg Q2H PRN Administration Pain Rated 4-6 Ondansetron HCl 4 mg 06/21/25 19:54 Ondansetron Inj 4 Mg/2 Ml Vial IV PUSH Q4H PRN Nausea Radiology Results: ITS Impressions Abdomen/Pelvis CT 06/21/25 18:39 IMPRESSION: 1. Worrisome for acute cholecystitis. Labs Labs: Laboratory Results - last 24 hr 06/21/25 06/22/25 17:48 04:49 WBC 7.2 7.7 RBC 4.38 4.02 L Hgb 12.4 11.4 L Hct 38.2 34.7 L MCV 87.2 86.3 MCH 28.3 28.4 MCHC 32.5 32.9 RDW 14.5 14.4 Plt Count 261 221 MPV 8.9 9.1 Immature Gran % (Auto) 0.3 0.3 Neut % (Auto) 68.7 64.4 Lymph % (Auto) 22.3 23.0 Jones % (Auto) 6.4 8.1 Eos % (Auto) 1.9 3.7 Baso % (Auto) 0.4 0.5 Lymph # (Auto) 1.60 1.76 Jones # (Auto) 0.5 0.6 Eos # (Auto) 0.1 0.3 Baso # (Auto) 0.0 0.0 Abs Immat Gran (auto) 0.02 0.02 Absolute Neuts (auto) 4.9 4.9 Absolute Nucleated RBC 0.000 0.000 Nucleated RBC % 0.0 0.0 Sodium 139 138 Potassium 3.9 4.2 Chloride 100 104 Carbon Dioxide 31 H 28 Anion Gap 8 6 BUN 11 D 10 Creatinine 0.98 0.99 Estim Creat Clear Calc 80 79 Estimated GFR > 60 > 60 Glucose 104 93 Calcium 9.2 8.3 L Magnesium 1.8 Total Bilirubin 0.9 0.6 AST 492 H 399 H ALT 283 H 365 H Alkaline Phosphatase 141 H 151 H Troponin I < 0.012 Total Protein 8.3 H 6.7 Albumin 4.3 3.5 Lipase 221 Urine Color Yellow Urine Appearance Clear Urine pH 5.5 Ur Specific [place] 1.017 Urine Protein Negative Urine Glucose (UA) Negative Urine Ketones Negative Ur Blood (Man) Negative Urine Nitrate Negative Urine Bilirubin Negative Urine Urobilinogen 1.0 Leukocyte Esterase Rfl Negative Quality VTE Prophylaxis VTE prophylaxis: mechanical ordered
[2025-06-22 07:43] VITALS: PULSE 74; RESP 16; O2SAT 98
[2025-06-22] MEDS: SODIUM CHLORIDE 0.9% IV 1,000 ML 100 ML IV CONT ×2 (07:51→23:09)
--- NOTE | 2025-06-22 09:36 | P.CONGS_ITS ---
Assessment and Plan Assessment and plan (1) Acute cholecystitis: Code(s): K81.0 - Acute cholecystitis Status: Acute Assessment and Plan: * Patient presents with RUQ abdominal pain x1 day. CT scan suggest possible acute cholecystitis with cholelithiasis. AST was 492 and ALT 283. RUQ U/S showed cholelithiasis with gallbladder wall thickening and positive sonographic Bruno sign, as well as common bile duct dilation 8 mm. We will order an MRCP today to further evaluate the common bile duct dilation and assess for choledocholithiasis. Will keep her NPO, continue IV antibiotics, and IV fluids. (2) Transaminitis: Code(s): R74.01 - Elevation of levels of liver transaminase levels Status: Acute Assessment and Plan: * AST and ALT significantly elevated. Total bilirubin normal, although ultrasound suggest common bile duct dilation. Will order MRCP to further evaluate. Plan I have discussed the patient's case and plan of care with Dr. Molina. History of Present Illness Consult details Consult date: 06/22/25 Reason for consult: other (Acute cholecystitis) Requesting physician: Kaylen Rolon, ARNALDO Narrative: This is a 35-year-old female with a history of solitary kidney, chronic constipation, and bipolar disorder, who we have been asked to see in surgical consultation for acute cholecystitis. She developed right upper quadrant abdominal pain yesterday around 12:30. She reports pain came on after eating a granola bar and peanuts. Her pain radiated up into her mid chest. She denies ever having pain like this in the past. Within a few hours, she developed nausea and vomiting, and subsequently decided to come into the ED for evaluation. Labs showed a white blood cell count of 7200, total bilirubin 0.9, AST 492, ALT 283, alk-phos 141, and lipase normal. CT scan of the abdomen and pelvis showed probable acute cholecystitis with cholelithiasis. She was admitted and started on IV antibiotics. Right upper quadrant abdominal ultrasound done this morning, and reportedly aggravated her abdominal pain. She continues to get morphine for her pain. Review of Systems 2 Review of Systems: All systems reviewed & are unremarkable except as noted in HPI and below PMFSH Past Medical History Medical History Bipolar disorder Obesity Depression Anxiety Surgical History Surgical History History of breast lift H/O breast augmentation Status post laparoscopic surgery fallopian tube H/O hysterectomy for benign disease H/O arthroscopic knee surgery History of section Family History Family History Father Cancer Grandparent Heart disease Other Family history of malignant neoplasm Social History Social History Social History: she lives with her family. she is and has two children. She works at [employer] and side of [employer]. Code status full code Smoking status: Never smoker Alcohol intake: never Substance use: never Substance use type: does not use Lack of Transportation: No Lack of Food: Never True Current Housing: I Have Housing Concerned About Future Housing: No Difficulty Paying Gas/Electric Bills: No Difficulty Paying for Meds: No Currently Unemployed: No Education: Associate Degree Difficulty w/ Childcare or Family Care: No Living arrangements: with family Spiritual care concerns: No Meds Home Medications and Allergies Home Medications ?Medication ?Instructions ?Recorded ?Confirmed ?Type quetiapine 200 mg tablet 200 mg PO HS 02/15/21 History duloxetine 20 mg capsule,delayed 20 mg PO HS 06/21/25 06/21/25 History release linaclotide 145 mcg capsule 145 mcg PO DAILY PRN const ipation 06/21/25 06/21/25 History (Linzess) omeprazole 20 mg capsule,delayed 20 mg PO DAILY 06/21/25 History release Allergies Allergy/AdvReac Type Severity Reaction Status Date / Time No Known Allergies Allergy Verified 06/22/25 05:00 Vital Signs Vital Signs - 24 hr 06/21/25 16:50 06/21/25 21:23 06/21/25 21:46 Temperature 98.4 F 97.7 F Pulse Rate 86 85 Respiratory Rate 18 16 Blood Pressure 115/79 130/73 Pulse Oximetry 97 100 Oxygen Delivery Room Air Room Air 06/22/25 05:19 06/22/25 07:35 06/22/25 07:43 Temperature 98.2 F 97.1 F L Pulse Rate 72 74 74 Respiratory Rate 17 16 16 Blood Pressure 110/69 128/80 Pulse Oximetry 98 98 98 Oxygen Delivery Room Air Exam 2 Const: General: comfortable and no acute distress Nutritional Appearance: a verage body habitus Orientation/consciousness: patient oriented x3 HENMT: Head: normocephalic and atraumatic Ears: hearing grossly normal bilaterally Mouth: Yes moist mucous membranes Eyes: General: appearance normal, both eyes and all related structures P upils: Equal, round and reactive pupils present Neck: Neck: normal visual inspection and full ROM Resp: Effort & Inspection: no respiratory distress Auscultation: clear to auscultation bilaterally Cardio: Rate: regular rate Rhythm: regular rhythm Peripheral pulses: P eripheral pulses 2+ throughout GI: Inspection: non-distended GI Palp: Yes Soft to palpation, Yes Tenderness to palpation present (GI) (RUQ), No Guarding due to palpation present (GI) and No Rebound tenderness present Percussion: Yes normal to percussion Auscultation: normal bowel sounds Skin: General skin exam: normal color Neuro: General: moves all extremities and no focal motor deficits Speech: n ormal speech Motor exam (neuro): 5/5 motor strength present throughout Extrem: General: normal to inspection and no edema Psych: Mental Status: mental status grossly normal Attitude: cooperative Insight: Good insight present (Psych) Judgement: Good judgement present (Psych) Results Labs 06/22/25 04:49 06/22/25 04:49 Labs: Abnormal lab results 06/21/25 06/22/25 Range/Units 17:48 04:49 RBC 4.02 L (4.2-5.4) M/mm3 Hgb 11.4 L (12.0-15.0) g/dL Hct 34.7 L (37.0-47.0) % Carbon Dioxide 31 H (22-30) mmol/L Calcium 8.3 L (8.4-10.2) mg/dL AST 492 H 399 H (14-36) U/L ALT 283 H 365 H (6-35) U/L Alkaline Phosphatase 141 H 151 H (38-126) U/L Total Protein 8.3 H (6.3-8.2) g/dL Diabetes panel 06/21/25 06/22/25 Range/Units 17:48 04:49 Sodium 139 138 (137-145) mmol/L Potassium 3.9 4.2 (3.4-5.0) mmol/L Chloride 100 104 (98-107) mmol/L Carbon Dioxide 31 H 28 (22-30) mmol/L BUN 11 D 10 (7-17) mg/dL Creatinine 0.98 0.99 (0.7-1.0) mg/dL Glucose 104 93 (65-110) mg/dL Calcium 9.2 8.3 L (8.4-10.2) mg/dL AST 492 H 399 H (14-36) U/L ALT 283 H 365 H (6-35) U/L Alkaline Phosphatase 141 H 151 H (38-126) U/L Total Protein 8.3 H 6.7 (6.3-8.2) g/dL Albumin 4.3 3.5 (3.5-5.1) g/dL Calcium panel 06/21/25 06/22/25 Range/Units 17:48 04:49 Calcium 9.2 8.3 L (8.4-10.2) mg/dL Albumin 4.3 3.5 (3.5-5.1) g/dL Pituitary panel 06/21/25 06/22/25 Range/Units 17:48 04:49 Sodium 139 138 (137-145) mmol/L Potassium 3.9 4.2 (3.4-5.0) mmol/L Chloride 100 104 (98-107) mmol/L Carbon Dioxide 31 H 28 (22-30) mmol/L BUN 11 D 10 (7-17) mg/dL Creatinine 0.98 0.99 (0.7-1.0) mg/dL Glucose 104 93 (65-110) mg/dL Calcium 9.2 8.3 L (8.4-10.2) mg/dL Adrenal panel 06/21/25 06/22/25 Range/Units 17:48 04:49 Sodium 139 138 (137-145) mmol/L Potassium 3.9 4.2 (3.4-5.0) mmol/L Chloride 100 104 (98-107) mmol/L Carbon Dioxide 31 H 28 (22-30) mmol/L BUN 11 D 10 (7-17) mg/dL Creatinine 0.98 0.99 (0.7-1.0) mg/dL Glucose 104 93 (65-110) mg/dL Calcium 9.2 8.3 L (8.4-10.2) mg/dL Total Bilirubin 0.9 0.6 (0.2-1.3) mg/dL AST 492 H 399 H (14-36) U/L ALT 283 H 365 H (6-35) U/L Alkaline Phosphatase 141 H 151 H (38-126) U/L Total Protein 8.3 H 6.7 (6.3-8.2) g/dL Albumin 4.3 3.5 (3.5-5.1) g/dL All other labs normal. Imaging Additional studies: ITS Impressions Abdomen/Pelvis CT 06/21/25 18:39 IMPRESSION: 1. Worrisome for acute cholecystitis. Abdomen Ultrasound 06/22/25 09:13 IMPRESSION: 1: Cholelithiasis with dilation of the common bile duct measuring 8 mm and gallbladder wall thickening. Positive sonographic Bruno sign. Findings suspicious for cholecystitis. Clinically correlate.
[2025-06-22] MEDS: diazePAM INJ (*CRX) 10 MG/2 ML SYRINGE 5 MG IV PUSH (11:54)
[2025-06-22] MEDS: PROMETHAZINE HCL 25 MG/ML AMPUL 12.5 MG IV PUSH (15:19)
[2025-06-22] MEDS: cefTRIAXone 1 GM in SODIUM CHLORIDE 0.9% IV 50 ML 100 ML IVPB (17:02)
[2025-06-22 18:14] VITALS: BP 113/70; PULSE 84; RESP 16; O2SAT 99
[2025-06-22 21:16] VITALS: BP 104/70; PULSE 74; RESP 14; TEMP 36.6; O2SAT 98
[2025-06-23] VITALS (12 sets, daily range): BP systolic 97–134; BP diastolic 58–87; PULSE 74–93; RESP 12–20; TEMP 36.6–36.9; O2SAT 96–100
[2025-06-23] MEDS: metroNIDAZOLE 500 MG/ISO 100ML 500 MG/100 ML BAG 100 MG IVPB ×2 (05:36→13:36)
[2025-06-23] MEDS: MORPHINE SULFATE (*CRX) 4 MG/ML INJ IV PUSH ×4 (05:43→13:36)
--- NOTE | 2025-06-23 07:03 | P.PNIM_ITS ---
Progress Note: A&P Assessment and Plan (1) Acute cholecystitis: Code(s): K81.0 - Acute cholecystitis Status: Acute Assessment and Plan: -Abd/pelvis CT: Worrisome for acute cholecystitis. -IV pain management -Gentle IV fluid resuscitation -Flagyl + Rocephin -US Abd: Cholelithiasis with dilation of the common bile duct measuring 8 mm and gallbladder wall thickening. Positive sonographic Bruno sign. Findings suspicious for cholecystitis - MRCP with normal sized gallbladder with gallstones, gallbladder wall thickening. Mildly dilated common duct. No choledocholithiasis. - general surgery consulted - planning for CCY today. NPO. (2) Transaminitis: Code(s): R74.01 - Elevation of levels of liver transaminase levels Status: Acute Assessment and Plan: - AST 399, ALT 365, alk phos 151 - improving - likely due to cholecystitis - monitor CMP (3) Bipolar disorder: Code(s): F31.9 - Bipolar disorder, unspecified Status: Acute Assessment and Plan: -resume Seroquel and duloxetine Subjective Date/time seen: 06/23/25 07:03 Interval history: 35-year-old female patient with a history of solitary kidney. The patient developed right upper quadrant discomfort today around 12:30 p.m. after eating a granola bar peanuts. The patient has had no prior history of gallbladder disease in the past. The patient stated that she took Pepto-Bismol with Gas-X and Tums with no relief. Patient seen and examined at bedside. Resting comfortably in bed. Still having 5/10 right upper quadrant abdominal pain with some mild nausea. Review of Systems Review of Systems: All systems reviewed & are unremarkable except as noted in HPI and below Exam Narrative: General: NAD Eyes: EOMI ENT: neck supple Cardiovascular: Regular rate and rhythm Respiratory: Clear to auscultation, respirations even and unlabored on RA Gastrointestinal: Soft, Moderate RUQ TTP. Genitourinary: no suprapubic tenderness Musculoskeletal: No edema Skin: warm, dry Neuro: Alert. Psych: Mood appropriate Objective Data Vital Signs Vital Signs: Vital Signs - 24 hr 06/22/25 07:35 06/22/25 07:43 06/22/25 18:14 Temperature 97.1 F L Pulse Rate 74 74 84 Respiratory Rate 16 16 16 Blood Pressure 128/80 113/70 Pulse Oximetry 98 98 99 Oxygen Delivery Room Air 06/22/25 20:00 06/22/25 21:16 06/23/25 06:00 Temperature 97.8 F 98.4 F Pulse Rate 74 89 Respiratory Rate 14 16 Blood Pressure 104/70 97/58 L Pulse Oximetry 98 98 Oxygen Delivery Room Air Intake/Output Intake/Output: Intake & Output 06/20/25 06/21/25 06/22/25 06/23/25 23:59 23:59 23:59 23:59 Intake Total 100 3018 400 Output Total 50 300 Balance 50 2718 400 Meds/Results Medications: Active Medications Generic Name Dose Route Start Last Admin Trade Name Freq PRN Reason Stop Dose Admin Dextrose 12.5 gm 06/21/25 19:54 Dextrose 50% 25 Gm/50 Ml Syringe IV PUSH PRN PRN Hypoglycemia Protocol Glucagon 1 mg 06/21/25 19:54 Glucagon For Inj 1 Mg Vial IM PRN PRN Hypoglycemia Protocol Glucose 15 gm 06/21/25 19:54 Glucose Oral Gel 15 Gm Of Glucse In 37.5 Gm Tube PO PRN PRN Hypoglycemia Protocol Hydromorphone HCl 0.5 mg 06/21/25 19:54 06/22/25 05:16 Hydromorphone Hcl Inj (*Crx) 1 Mg/Ml Syr IV PUSH 0.5 mg Q4H PRN Administration Pain Rated 7-10 Ceftriaxone Sodium 1 gm/ 50 mls @ 100 mls/hr 06/21/25 18:00 06/22/25 17:32 Sodium Chloride IVPB Infused Q24H TEMI Infusion Metronidazole 500 mg in 100 mls @ 100 mls/hr 06/22/25 06:00 06/23/25 05:36 Flagyl 500 Mg/Iso Soln 100 Ml IVPB 100 mls/hr Q8H TEMI Administration Sodium Chloride 1,000 mls @ 100 mls/hr 06/21/25 19:55 06/22/25 23:09 Normal Saline Iv IV CONT 100 mls/hr .Q10H TEMI Administration Dextrose 1,000 mls @ 100 mls/hr 06/21/25 19:54 Dextrose 5% 1,000 Ml IVPB PRN PRN Hypoglycemia Protocol Morphine Sulfate 4 mg 06/21/25 19:54 06/23/25 05:43 Morphine Sulfate (*Crx) 4 Mg/Ml Inj IV PUSH 4 mg Q2H PRN Administration Pain Rated 4-6 Prochlorperazine Edisylate 10 mg 06/22/25 09:50 Prochlorperazine Edisylate 10 Mg/2 Ml Vial IV PUSH 06/23/25 12:00 Q6H PRN Nausea And Vomiting Promethazine HCl 12.5 mg 06/22/25 13:39 06/22/25 15:19 Promethazine Hcl 25 Mg/Ml Ampul IV PUSH 12.5 mg Q4H PRN Administration Nausea And Vomiting Radiology Results: ITS Impressions Abdomen/Pelvis CT 06/21/25 18:39 IMPRESSION: 1. Worrisome for acute cholecystitis. Abdomen Ultrasound 06/22/25 09:13 IMPRESSION: 1: Cholelithiasis with dilation of the common bile duct measuring 8 mm and gallbladder wall thickening. Positive sonographic Bruno sign. Findings suspicious for cholecystitis. Clinically correlate. MRCP 06/22/25 14:08 IMPRESSION: 1. Normal sized gallbladder with gallstones, gallbladder wall thickening, and positive sonographic Bruno sign on prior ultrasound suspicious for acute cholecystitis. 2. Mildly dilated common duct. No choledocholithiasis. Quality VTE Prophylaxis VTE prophylaxis: mechanical ordered
[2025-06-23] MEDS: PROMETHAZINE HCL 25 MG/ML AMPUL 12.5 MG IV PUSH (08:16)
[2025-06-23 08:55] LABS: Hematocrit 35.2 % (37.0-47.0); Hemoglobin 11.4 g/dL (12.0-15.0); Mean Corpuscular HGB Conc 32.4 g/dl (32-36); Mean Corpuscular Hemoglobin 28.4 pg (26-34); Mean Corpuscular Volume 87.8 fl (80-100); Platelet Count Result 248 k/mm3 (150-375); Red Blood Count 4.01 M/mm3 (4.2-5.4); White Blood Count 7.2 K/mm3 (4.5-10.0)
[2025-06-23 09:06] LABS: INR 1.0; Prothrombin Time 13.5 Seconds (11.1-14.7)
[2025-06-23 09:17] LABS: Alanine Aminotransferase 228 U/L (6-35); Albumin Level 3.6 g/dL (3.5-5.1); Alkaline Phosphatase 154 U/L (38-126); Anion Gap 7 mmol/L (4-12); Aspartate Amino Transferase 102 U/L (14-36); Bilirubin,Total 0.5 mg/dL (0.2-1.3); Blood Urea Nitrogen 9 mg/dL (7-17); Calcium 8.5 mg/dL (8.4-10.2); Carbon Dioxide 27 mmol/L (22-30); Chloride 105 mmol/L (98-107); Estimated CRCL calculation 89 ml/min; Estimated Glomerular Filt Rate > 60; Glucose 99 mg/dL (65-110); Potassium 3.4 mmol/L (3.4-5.0); Sodium 139 mmol/L (137-145); Total Protein 6.8 g/dL (6.3-8.2)
[2025-06-23 09:18] LABS: Partial Thromboplastin Time 26.4 Seconds (22.3-36.8)
[2025-06-23] MEDS: SODIUM CHLORIDE 0.9% IV 1,000 ML 100 ML IV CONT (10:18)
--- NOTE | 2025-06-23 11:05 | WPDHPUPDATE1 ---
History and Physical Update Update Date/Time: 06/23/25 11:05 History and Physical has been reviewed, including an updated exam of the patient. There are NO changes in the patient's condition. Risks, benefits, and alternatives have been discussed and questions answered. Patient agrees to proceed with procedure.
[2025-06-23] MEDS: KETOROLAC 15 MG/ML VIAL (*BKC) IV PUSH (14:45)
[2025-06-23] MEDS: ACETAMINOPHEN 500 MG TABLET 1000 MG PO (14:45)
[2025-06-23] MEDS: LACTATED RINGERS 1,000 ML 30 ML IV CONT ×3 (14:45→17:26)
--- NOTE | 2025-06-23 14:51 | WPDANESEPPF ---
Anes - Initial Pre Proc Eval Procedure: Operation Date: 06/23/25 15:00 Proposed Procedures p Laparoscopic Cholecystectomy - Shirin Molina MD Date/Time: 06/23/25 14:51 Surgeon: Samson Zuniga MD Pre Op Diagnosis: Acute cholecystitis Patient Data Age: 35 Gender: F Height: 1.65 m Weight: 95.9 kg Last Vital Signs Temp 36.9 C 06/23/25 06:00 Pulse 89 06/23/25 06:00 Resp 16 06/23/25 06:00 BP 97/58 L 06/23/25 06:00 Pulse Ox 98 06/23/25 06:00 O2 Del Method Room Air 06/23/25 08:00 Allergies Allergy/AdvReac Type Severity Reaction Status Date / Time No Known Allergies Allergy Verified 06/22/25 05:00 Home Medications ?Medication ?Instructions ?Recorded ?Confirmed ?Type quetiapine 200 mg tablet 200 mg PO HS 02/15/21 06/21/25 History duloxetine 20 mg capsule,delayed 20 mg PO HS 06/21/25 06/21/25 History release linaclotide 145 mcg capsule 145 mcg PO DAILY PRN constipation 06/21/25 06/21/25 History (Linzess) omeprazole 20 mg capsule,delayed 20 mg PO DAILY 06/21/25 06/21/25 History release Laboratory Tests 06/23/25 08:42 WBC 7.2 K/mm3 (4.5-10.0) RBC 4.01 L M/mm3 (4.2-5.4) Hgb 11.4 L g/dL (12.0-15.0) Hct 35.2 L % (37.0-47.0) MCV 87.8 fl (80-100) MCH 28.4 pg (26-34) MCHC 32.4 g/dl (32-36) RDW 14.6 H % (11.5-14.5) Plt Count 248 k/mm3 (150-375) MPV 9.5 fl (7.4-10.4) PT 13.5 Seconds (11.1-14.7) INR 1.0 APTT 26.4 Seconds (22.3-36.8) Sodium 139 mmol/L (137-145) Potassium 3.4 mmol/L (3.4-5.0) Chloride 105 mmol/L (98-107) Carbon Dioxide 27 mmol/L (22-30) Anion Gap 7 mmol/L (4-12) BUN 9 mg/dL (7-17) Creatinine 0.88 mg/dL (0.7-1.0) Estim Creat Clear Calc 89 ml/min Estimated GFR > 60 (59 - ) Glucose 99 mg/dL (65-110) Calcium 8.5 mg/dL (8.4-10.2) Total Bilirubin 0.5 mg/dL (0.2-1.3) AST 102 H U/L (14-36) ALT 228 H U/L (6-35) Alkaline Phosphatase 154 H U/L (38-126) Total Protein 6.8 g/dL (6.3-8.2) Albumin 3.6 g/dL (3.5-5.1) Blood Type A Positive Antibody Screen Negative Patient hx anesthesia problems: none Family hx anesthesia problems: none Results Review: All pre-operative results and documents have been reviewed as part of the pre-operative evaluation. FOR[facility]LY [facility] Past Medical History Medical History Bipolar disorder Obesity Depression Anxiety Surgical History Surgical History History of breast lift H/O breast augmentation Status post laparoscopic surgery fallopian tube H/O hysterectomy for benign disease H/O arthroscopic knee surgery History of section Family History Family History Father Cancer Grandparent Heart disease Other Family history of malignant neoplasm Social History Social History Social History: she lives with her family. she is and has two children. She works at [employer] and side of [employer]. Code status full code Smoking status: Never smoker Alcohol intake: never Substance use: never Substance use type: does not use Lack of Transportation: No Lack of Food: Never True Current Housing: I Have Housing Concerned About Future Housing: No Difficulty Paying Gas/Electric Bills: No Difficulty Paying for Meds: No Currently Unemployed: No Education: Associate Degree Difficulty w/ Childcare or Family Care: No Living arrangements: with family Spiritual care concerns: No Anes - Eval Final PreProcedure Day of Procedure 06/23/25 14:51 Patient weight: obese Heart: regular rate and rhythm Lungs: clear to auscultation Airway: Mallampati scale class II Neurological: alert and oriented Last oral intake: >/= 8 hours ASA classification: II Emergent: no Anesthetic plan: proceed Anesthesia type and monitoring: general ETT and standard monitoring Results Review: All pre-operative results and documents have been reviewed as part of the pre-operative evaluation. Informed Consent: The patient's anesthetic plan and its attendant risks and benefits were discussed with the patient/family/POA. Questions were solicited and answers provided to the satisfaction of the patient/family/POA.
--- NOTE | 2025-06-23 15:28 | W.PM.PROC2 ---
Procedure Note - Detailed Date of Procedure 06/23/25 Pre-op Diagnosis Acute cholecystitis, cholelithiasis Post-op Diagnosis Same Procedure Performed Laparoscopic cholecystectomy Surgeon Shirin Molina MD Anesthesia General and Local Indications 35-year-old female presenting to the emergency department complaining of severe upper abdominal pain. Workup, including imaging, was significant for acute cholecystitis, cholelithiasis. Findings Acute cholecystitis, cholelithiasis Description of Procedure The patient was taken to the operating room placed in the supine position. After adequate induction of general anesthesia, the patient was prepped and draped in normal sterile fashion. A time-out was then performed to verify the patient's identity as well as the procedure being performed. I then made a 5 mm incision in the infraumbilical region. Through this, a Veress needle was placed into the peritoneal cavity and CO2 gas was then insufflated. After adequate pneumoperitoneum was achieved, the Veress needle was removed and a 5 mm optiview trocar was placed through this incision under direct visualization. I then placed the laparoscope through this trocar site and under direct visualization placed a further 12 mm subxiphoid port as well as 2 additional 5 mm ports in the right upper abdomen. The gallbladder was then identified and was noted to be inflamed and distended. I was able to place a grasper at the dome of the gallbladder and this was retracted anterior and cephalad up over the liver. A 2nd retractor was then placed at the infundibulum and retracted laterally, this allowed visualization of the triangle of Calot. I then was able to visualize the cystic duct in its entirety from its proximal insertion into the gallbladder, to its distal junction with the common hepatic/common bile duct junction. At this point, I carefully skeletonized the proximal cystic duct with the [place] dissector. I then clipped and transected the proximal cystic duct. Next I visualized the cystic artery. Again the artery was skeletonized, clipped, and transected. I then used the Bovie cautery to take down the peritoneal attachments of the gallbladder off the liver bed. This was somewhat difficult given the amount of inflammation in the posterior space. Once the gallbladder specimen was completely detached, an endo-pouch was placed through the 12 mm port site. I then placed the gallbladder specimen into the Endo pouch and removed the endo-pouch from the 12 mm port site. The specimen will now be sent to pathology for further review. I then copiously irrigated the right upper quadrant. Some mild oozing was noted in the liver bed and this was controlled with the bovie cautery. Hemostasis was noted in the liver bed, the clips were noted to be in good position on both the cystic duct stump and the cystic artery stump. No other pathology was noted in the right upper quadrant. I then moved the laparoscope to the subxiphoid port. No iatrogenic injury or other pathology was noted in the lower abdomen. I then closed the 12 mm trocar site under direct visualization using the Umberto cone and 0 Vicryl suture. At this point, the abdomen was desufflated and all ports removed. All port sites were then closed with 4.O Monocryl subcuticular sutures. Dermabond was placed on each incision. The patient tolerated the procedure well, was extubated in the operating room postoperative and will be transferred to the recovery room in stable condition Estimated Blood Loss 10 Drains No Packing No Pathology Yes Complications No immediate complications Condition Stable Disposition PACU [facility] Billing Surgery - Charge Forward: Surgery Billing
[2025-06-23] MEDS: BUPIVACAINE/EPINEPHRINE 0.5% 50 ML VIAL 30 ML INFILTRATE (16:07)
--- NOTE | 2025-06-23 16:17 | S_PTH ---
PATIENT: Ting Fitzpatrick LOC: [id number] U#:[id number] AGE/SX: 35/F ROOM: 254 RE06/21/[address]: Elsa Juarez MD : 1990 BED: 01 DIS: 06/24/2025 SPEC #: [id number] RECD: 06/24/25 08:41 STATUS: RAVI REQ #: [id number] ARMANDO: 06/23/25 16:[address]: Shirin Molina DEPT: [facility] Surgical RECD BY: Sofie Webster MLT, [place] [place] ENTERED: 06/24/25 08:41 SP TYPE: Surgical OTHR DR: Kin Hartman, MD Marti Garcia, ALEKSANDR Stanley Tissues: A - Gallbladder Procedures: Hematoxylin and Eosin Stain Gross and Microscopic Level 3
[2025-06-23] MEDS: ONDANSETRON INJ 4 MG/2 ML VIAL IV PUSH (16:50)
[2025-06-23] MEDS: fentaNYL CITRATE INJ (*CRX) 100 MCG/2 ML VIAL 25 MCG IV PUSH ×8 (17:13→18:10)
[2025-06-23] MEDS: HYDROmorphone HCL INJ (*CRX) 1 MG/ML SYR 0.5 MG IV PUSH ×3 (17:52→19:58)
--- NOTE | 2025-06-23 18:31 | PC.NURSE ---
Returned from OR at 1830. Report received from PATRICIA Cote.
[2025-06-23] MEDS: HYDROcodone/acetaminophen (*CRX) 5-325 MG TABLET 1 TAB PO (22:35)
[2025-06-24] MEDS: SODIUM CHLORIDE 0.9% IV 1,000 ML 100 ML IV CONT (02:03)
[2025-06-24] MEDS: KETOROLAC 15 MG/ML VIAL (*BKC) IV PUSH (02:04)
[2025-06-24 05:15] LABS: Hematocrit 32.2 % (37.0-47.0); Hemoglobin 10.5 g/dL (12.0-15.0); Immature Granulocyte Percent A 0.6 % (0-0.5); Lymphocytes Absolute Auto 1.42 K/mm3 (0.9-3.2); Mean Corpuscular HGB Conc 32.6 g/dl (32-36); Mean Corpuscular Hemoglobin 28.2 pg (26-34); Mean Corpuscular Volume 86.3 fl (80-100); Nucleated Red Blood Cells Absolute Auto 0.000 K/mm3 (0.0-0.012); Nucleated Red Blood Cells Perc 0.0 % (0.0-0.2); Platelet Count Result 222 k/mm3 (150-375); Red Blood Count 3.73 M/mm3 (4.2-5.4); White Blood Count 12.3 K/mm3 (4.5-10.0)
[2025-06-24] MEDS: HYDROcodone/acetaminophen (*CRX) 5-325 MG TABLET 1 TAB PO ×2 (05:29→09:52)
[2025-06-24 05:41] LABS: Alanine Aminotransferase 163 U/L (6-35); Albumin Level 3.4 g/dL (3.5-5.1); Alkaline Phosphatase 123 U/L (38-126); Anion Gap 6 mmol/L (4-12); Aspartate Amino Transferase 78 U/L (14-36); Bilirubin,Total 0.3 mg/dL (0.2-1.3); Blood Urea Nitrogen 10 mg/dL (7-17); Calcium 8.5 mg/dL (8.4-10.2); Carbon Dioxide 24 mmol/L (22-30); Chloride 107 mmol/L (98-107); Estimated CRCL calculation 92 ml/min; Estimated Glomerular Filt Rate > 60; Glucose 107 mg/dL (65-110); Potassium 3.7 mmol/L (3.4-5.0); Sodium 137 mmol/L (137-145); Total Protein 6.4 g/dL (6.3-8.2)
[2025-06-24 05:53] VITALS: BP 132/86; PULSE 75; RESP 18; TEMP 36.6; O2SAT 100
--- NOTE | 2025-06-24 10:30 | P.DS_ITS ---
DS: Admitting Diagnosis Discharge Date 06/24/25 Admitting Diagnosis - acute cholecystitis - transaminitis DS: Discharge Diagnosis Discharge Diagnosis (1) Acute cholecystitis: Code(s): K81.0 - Acute cholecystitis Status: Acute (2) Transaminitis: Code(s): R74.01 - Elevation of levels of liver transaminase levels Status: Acute (3) Bipolar disorder: Code(s): F31.9 - Bipolar disorder, unspecified Status: Acute DS: Summary Hospital Course Reason for hospitalization: - acute cholecystitis - transaminitis Hospital Course: Patient is a 35-year-old female with past medical history of bipolar disorder who presented to the emergency department with complaints of right upper quadrant abdominal pain and nausea. CT abdomen pelvis and right upper quadrant ultrasound showed concern for acute cholecystitis. MRCP was normal size gallbladder, mildly dilated common bile duct, no choledocholithiasis. AST 492, ALT 283, alk-phos 141. General surgery was consulted and patient subsequently underwent laparoscopic cholecystectomy 06/23/25. Patient did well postoperatively, was tolerating a regular diet and ambulating independently. Liver enzymes trended down. Vital signs remained stable. General surgery cleared for discharge. Patient was discharged home in stable condition instructions to follow-up with general surgery in 2 weeks. Status at Discharge Functional status at discharge: independent ambulation Overall status at discharge: patient is back to baseline Time Spent with Patient Time attestation: Total time spent providing and/or coordinating discharge services: Time spent: Greater than 30 minutes Exam Narrative: General: NAD Eyes: EOMI ENT: neck supple Cardiovascular: Regular rate and rhythm Respiratory: Clear to auscultation, respirations even and unlabored on RA Gastrointestinal: Soft, surgical incisions well-approximated Genitourinary: no suprapubic tenderness Musculoskeletal: No edema Skin: warm, dry Neuro: Alert. Psych: Mood appropriate DS: Data Data Completed and Pending Completed studies during hospitalization: ITS Impressions Abdomen/Pelvis CT 06/21/25 18:39 IMPRESSION: 1. Worrisome for acute cholecystitis. Abdomen Ultrasound 06/22/25 09:13 IMPRESSION: 1: Cholelithiasis with dilation of the common bile duct measuring 8 mm and gallbladder wall thickening. Positive sonographic Bruno sign. Findings suspicious for cholecystitis. Clinically correlate. MRCP 06/22/25 14:08 IMPRESSION: 1. Normal sized gallbladder with gallstones, gallbladder wall thickening, and positive sonographic Bruno sign on prior ultrasound suspicious for acute cholecystitis. 2. Mildly dilated common duct. No choledocholithiasis. Pending studies at discharge: Pending at discharge 06/23/25 16:17 Surgical [PTH] Routine Labs on day of discharge: Labs from last 24 hours 06/24/25 05:00 WBC 12.3 H RBC 3.73 L Hgb 10.5 L Hct 32.2 L MCV 86.3 MCH 28.2 MCHC 32.6 RDW 14.6 H Plt Count 222 MPV 9.4 Immature Gran % (Auto) 0.6 H Neut % (Auto) 81.6 H Lymph % (Auto) 11.5 L [place] % (Auto) 6.2 Eos % (Auto) 0.0 Baso % (Auto) 0.1 L Lymph # (Auto) 1.42 [place] # (Auto) 0.8 H Eos # (Auto) 0.0 Baso # (Auto) 0.0 Abs Immat Gran (auto) 0.07 H Absolute Neuts (auto) 10.1 H Absolute Nucleated RBC 0.000 Nucleated RBC % 0.0 Sodium 137 Potassium 3.7 Chloride 107 Carbon Dioxide 24 Anion Gap 6 BUN 10 Creatinine 0.85 Estim Creat Clear Calc 92 Estimated GFR > 60 Glucose 107 Calcium 8.5 Total Bilirubin 0.3 AST 78 H ALT 163 H Alkaline Phosphatase 123 Total Protein 6.4 Albumin 3.4 L Discharge Plan Discharge Attending physician on discharge: Elsa Juarez Consulting providers: Kin Hartman; Marti Winn; Shirin Molina Discharging Clinician: Marti Winn Anticipated Discharge Date/Time: 06/24/25 10:24 Patient Disposition: Home Activity: as tolerated Diet: as tolerated and low fat Wound Care Instructions: incision open to air Discharge Instructions: DISCHARGE INSTRUCTION SHEET FOR HERNIA, GALLBLADDER AND APPENDIX SURGERIES DR. MOLINA PATIENT TO TAKE HOME 1. May shower in 24 hours, no soaking in bath x 2weeks. 2. Call office for: * Wound increasingly painful or bleeding * Vomiting * Fever of greater than 101 degrees 3. If no bowel movement for three days, take 1 oz. (30 ml) Milk of Magnesia or MiraLax 17g 1 to 2 times daily. 4. No heavy lifting > 10-15 pounds x 6 weeks for hernia repairs and 2 weeks for laparoscopic cholecystectomy or appendectomy. 5. No driving for 3 days or while taking narcotic pain medications. 6. Ice to surgical site for 48 hours (30 min on, then 30 min off). 7. Up walking 10-30 minutes three times per day. 8. Resume previous home medications. 9. Follow-up 10-14 days in office for wound check or as previously scheduled. ([phone]) 10. Oral pain medications prescription to be sent to pharmacy. Take Tylenol 500mg every 6 hours and Ibuprofen 600mg every 6 hours for the first 2 days, then as needed. Use [place] for breakthrough pain. 11. NUTRITION: Start out by drinking fluids and increase your diet as tolerated. If you experience nausea, try dry toast, crackers, and 7-UP. If nausea or vomiting persists, contact your surgeon?s office. 12. Gallbladders-Low Fat Diet for 2 weeks (send care note of low fat diet) 13. Inguinal Hernias-wear scrotal support for 48 hours 14. Abdominal Hernias-if sent home with abdominal binder, wear for the first 2 weeks (may remove to shower or at night to sleep). Revised 09/2020 Patient Instructions: Low Fat Diet (DC) Patient Language: Lao Stand Alone Forms: General Discharge Information Follow-up/Referrals: Shirin Molina MD [Physician, General Surgery] - 2 Weeks Discharge Medications: New hydrocodone-acetaminophen 5-325 mg tablet 1 tablet PO Q6H PRN (Reason: pain) Qty: 20 0RF Continued quetiapine 200 mg tablet 200 mg PO HS duloxetine 20 mg capsule,delayed release(DR/EC) 20 mg PO HS Linzess 145 mcg capsule 145 mcg PO DAILY PRN (Reason: constipation) omeprazole 20 mg capsule,delayed release(DR/EC) 20 mg PO DAILY Date of admission: 06/21/25 19:55 Primary Care Provider: SajiaMrti Admitting Provider: Henry Zuniga Attending physician on admission: Henry Zuniga Condition: Stable
--- NOTE | 2025-06-24 10:53 | P.PNGS_ITS ---
Progress Note: A&P Assessment and Plan (1) Acute cholecystitis: Code(s): K81.0 - Acute cholecystitis Status: Acute Assessment and Plan: * POD1 s/p lap palmira. Patient doing very well this morning. Minimal incisional pain tolerable with oral medication. Voiding appropriately. BM last night. Passing flatus. Tolerating diet without nausea or vomiting. Surgically stable for discharge with follow up in 2 weeks. (2) Transaminitis: Code(s): R74.01 - Elevation of levels of liver transaminase levels Status: Acute Assessment and Plan: * AST and ALT downtrending. Total bilirubin remains normal. Plan I have discussed the patient's case and plan of care with Dr. Molina. Subjective Subjective Date/Time Seen: 06/24/25 10:53 Post Op day: 1 (laparoscopic cholecystectomy) Patient reports: no new complaints, feels better, tolerating a regular diet, bowel movement and afebrile Interval history: POD1 s/p laparoscopic cholecystectomy. Patient doing very well. Minimal abdominal pain. Had BM last night. Passing gas. Voiding appropriately. Tolerating regular diet without nausea or vomiting. Exam Const: General: comfortable and no acute distress Eyes: General: appearance normal, both eyes and all related structures Resp: Effort & Inspection: normal respiratory effort Cardio: Rate: regular rate GI: Inspection: non-distended GI Palp: Yes Soft to palpation, Yes Tenderness to palpation present (GI) (minmal tenderness RUQ near incisions), No Guarding due to palpation present (GI) and No Hernia present Auscultation: normal bowel sounds Other: Incisions are clean and dry with glue intact. Bruising around incisions, but no signs of infection. Skin: General skin exam: normal color and no rashes or lesions noted Extrem: General: normal to inspection Psych: Mental Status: mental status grossly normal Objective Data Vital Signs Vital Signs: Vital Signs - 24 hr 06/23/25 14:02 06/23/25 16:36 06/23/25 16:50 Temperature 97.9 F 98.1 F Pulse Rate 74 92 93 Respiratory Rate 16 18 20 Blood Pressure 129/72 134/65 122/87 Pulse Oximetry 99 100 100 Oxygen Delivery Room Air Simple Face Mask Room Air Oxygen Flow Rate 8 06/23/25 17:05 06/23/25 17:20 06/23/25 17:35 Temperature Pulse Rate 84 93 83 Respiratory Rate 12 18 12 Blood Pressure 126/83 119/81 127/70 Pulse Oximetry 97 97 97 Oxygen Delivery Room Air Room Air Room Air Oxygen Flow Rate 06/23/25 17:50 06/23/25 18:05 06/23/25 18:20 Temperature Pulse Rate 84 80 87 Respiratory Rate 16 18 18 Blood Pressure 118/76 128/79 123/78 Pulse Oximetry 97 96 98 Oxygen Delivery Room Air Room Air Room Air Oxygen Flow Rate 06/23/25 20:00 06/23/25 21:20 06/24/25 05:53 Temperature 98.5 F 97.9 F Pulse Rate 87 81 75 Respiratory Rate 18 18 18 Blood Pressure 128/77 132/86 Pulse Oximetry 98 100 100 Oxygen Delivery Room Air Oxygen Flow Rate 06/24/25 08:00 Temperature Pulse Rate Respiratory Rate Blood Pressure Pulse Oximetry Oxygen Delivery Room Air Oxygen Flow Rate Intake/Output Intake/Output: Intake & Output 06/21/25 06/22/25 06/23/25 06/24/25 23:59 23:59 23:59 23:59 Intake Total 100 3018 3700 740 Output Total 50 300 450 Balance 50 2718 3700 290 Meds/Results Medications: Active Medications Generic Name Dose Route Start Last Admin Trade Name Freq PRN Reason Stop Dose Admin Hydrocodone Bitart/Acetaminophen 1 tab 06/23/25 18:35 06/24/25 09:52 Hydrocodone/Acetaminophen (*Crx) 5-325 Mg Tablet PO 1 tab Q4H PRN Administration Pain Rated 4-6 Dextrose 12.5 gm 06/21/25 19:54 Dextrose 50% 25 Gm/50 Ml Syringe IV PUSH PRN PRN Hypoglycemia Protocol Duloxetine HCl 20 mg 06/23/25 21:00 06/23/25 20:32 Duloxetine Hcl 20 Mg Capsule.Dr PO 20 mg HS TEMI Administration Glucagon 1 mg 06/21/25 19:54 Glucagon For Inj 1 Mg Vial IM PRN PRN Hypoglycemia Protocol Glucose 15 gm 06/21/25 19:54 Glucose Oral Gel 15 Gm Of Glucse In 37.5 Gm Tube PO PRN PRN Hypoglycemia Protocol Hydromorphone HCl 0.5 mg 06/21/25 19:54 06/23/25 19:58 Hydromorphone Hcl Inj (*Crx) 1 Mg/Ml Syr IV PUSH 0.5 mg Q4H PRN Administration Pain Rated 7-10 Sodium Chloride 1,000 mls @ 100 mls/hr 06/21/25 19:55 06/24/25 02:03 Normal Saline Iv IV CONT 100 mls/hr .Q10H TEMI Administration Dextrose 1,000 mls @ 100 mls/hr 06/21/25 19:54 Dextrose 5% 1,000 Ml IVPB PRN PRN Hypoglycemia Protocol Ketorolac Tromethamine 15 mg 06/23/25 12:23 06/24/25 02:04 Ketorolac 15 Mg/Ml Vial (*Bkc) IV PUSH 15 mg Q6H PRN Administration Pain Rated 4-6 Morphine Sulfate 4 mg 06/21/25 19:54 06/23/25 13:36 Morphine Sulfate (*Crx) 4 Mg/Ml Inj IV PUSH 4 mg Q2H PRN Administration Pain Rated 4-6 Promethazine HCl 12.5 mg 06/22/25 13:39 06/23/25 08:16 Promethazine Hcl 25 Mg/Ml Ampul IV PUSH 12.5 mg Q4H PRN Administration Nausea And Vomiting Quetiapine Fumarate 200 mg 06/23/25 21:00 06/23/25 20:33 Quetiapine Fumarate 100 Mg Tablet PO 200 mg HS TEMI Administration Radiology Results: ITS Impressions Abdomen/Pelvis CT 06/21/25 18:39 IMPRESSION: 1. Worrisome for acute cholecystitis. Abdomen Ultrasound 06/22/25 09:13 IMPRESSION: 1: Cholelithiasis with dilation of the common bile duct measuring 8 mm and gallbladder wall thickening. Positive sonographic Bruno sign. Findings suspicious for cholecystitis. Clinically correlate. MRCP 06/22/25 14:08 IMPRESSION: 1. Normal sized gallbladder with gallstones, gallbladder wall thickening, and positive sonographic Bruno sign on prior ultrasound suspicious for acute cholecystitis. 2. Mildly dilated common duct. No choledocholithiasis. Labs Labs: Laboratory Results - last 24 hr 06/24/25 05:00 WBC 12.3 H RBC 3.73 L Hgb 10.5 L Hct 32.2 L MCV 86.3 MCH 28.2 MCHC 32.6 RDW 14.6 H Plt Count 222 MPV 9.4 Immature Gran % (Auto) 0.6 H Neut % (Auto) 81.6 H Lymph % (Auto) 11.5 L [place] % (Auto) 6.2 Eos % (Auto) 0.0 Baso % (Auto) 0.1 L Lymph # (Auto) 1.42 [place] # (Auto) 0.8 H Eos # (Auto) 0.0 Baso # (Auto) 0.0 Abs Immat Gran (auto) 0.07 H Absolute Neuts (auto) 10.1 H Absolute Nucleated RBC 0.000 Nucleated RBC % 0.0 Sodium 137 Potassium 3.7 Chloride 107 Carbon Dioxide 24 Anion Gap 6 BUN 10 Creatinine 0.85 Estim Creat Clear Calc 92 Estimated GFR > 60 Glucose 107 Calcium 8.5 Total Bilirubin 0.3 AST 78 H ALT 163 H Alkaline Phosphatase 123 Total Protein 6.4 Albumin 3.4 L
== END 2025-06-24 11:15 | disposition home or self-care (01) ==
LOC: ANHED 20:10 → ANH2MED 06-22 06:56 → ANH3MEDSUR 06-25 07:25
PROVIDERS: Nurse Practitioner; Nurse Practitioner Family; Physician Assistant; Surgery; Admitting Provider Internal Medicine; Emergency Provider Physician Assistant; PCP Physician Assistant; Visit Provider Internal Medicine
PROC: 0FT44ZZ Resection of Gallbladder, Percutaneous Endoscopic Approach (ICD-10-PCS; CPT 47562; principal; 2025-06-23 15:00)
DX: K80.00 Calculus of gallbladder with acute cholecystitis without obstruction (principal); R74.01 Elevation of levels of liver transaminase levels; K59.00 Constipation, unspecified; F31.9 Bipolar disorder, unspecified; F41.8 Other specified anxiety disorders; E66.9 Obesity, unspecified; Z68.35 Body mass index [BMI] 35.0-35.9, adult; Z98.82 Breast implant status; Q60.0 Renal agenesis, unilateral; Z90.710 Acquired absence of both cervix and uterus; Z98.51 Tubal ligation status; Z82.49 Family history of ischemic heart disease and other diseases of the circulatory system; Z80.9 Family history of malignant neoplasm, unspecified
CPT/HCPCS: 47562; 36415; 74177; 74183; 76376; 76705; 80053; 81003; 83690; 83735; 84484; 85025; 85027; 85610; 85730; 86850; 86900; 86901; 88304; 93005; 96361; 96365; 96366; 96367; 96375; 96376; 99285; A9270; A9577; G0378; J0696; J1100; J1171; J1200; J1836; J1885; J2250; J2270; J2405; J2543; J2550; J2704; J3010; J3360; J7030; J7120; Q9967